=== PATIENT | male | born 1945 | race Caucasian/White ===

== ENCOUNTER → 2017-12-12 15:08 | Outpatient (CLI) | payer OTHER, SELFPAY ==
--- NOTE | 2017-12-12 | DI.RAD.S_ITS ---
This blank DEXA report has been sent in error by the PACS system. The correct and complete report will be forthcoming in 1-2 days. Thank you for your patience and understanding. Dictated by: Ceci Byrd MD, PhD on 12/12/2017 at 15:47 Approved by: Ceci Byrd MD, PhD on 12/12/2017 at 15:48
== END ==
PROVIDERS: Visit Provider Family Medicine
DX: M81.0 Age-related osteoporosis without current pathological fracture (principal)
CPT/HCPCS: 77080

== ENCOUNTER 2018-03-31 16:53 | Emergency (ER) | payer OTHER, SELFPAY ==
[2018-03-31 16:59] VITALS: BP 157/92; PULSE 76; RESP 15; TEMP 36.2; O2SAT 99; BMI 22.2
--- NOTE | 2018-03-31 17:04 | DI.RAD.S_ITS ---
PROCEDURE: XR FINGER RT MIN 2V INDICATIONS: cut rightthumb table saw TECHNIQUE: AP hand, 2 views of the right first finger(s) acquired. COMPARISON: None. FINDINGS: Bones are diffusely demineralized. A radiopaque ring projects over the right was proximal phalanx. There are mild degenerative changes of the second through fifth interphalangeal joints and moderate degenerative changes of the right first interphalangeal joint. There is cortical fracturing of the palmar/anterior aspect of the first distal phalanx diaphysis with an overlying soft tissue laceration. There is adjacent soft tissue edema. IMPRESSION: Right first distal phalanx fracture with overlying soft tissue laceration and edema. Dictated by: Escobar August M.D. on 03/31/2018 at 19:59 Approved by: Escobar August M.D. on 03/31/2018 at 20:02
--- NOTE | 2018-03-31 18:24 | ED_ITS ---
HPI - Wound/Laceration General Chief Complaint: Wound/Laceration Stated Complaint: LACERATION OF Left HAND THUMB Time Seen by Provider: 03/31/18 18:23 Source: patient Mode of arrival: ambulatory Limitations: no limitations History of Present Illness HPI narrative: The patient was using a table saw, at home. He was doing some remodeling at his home. He accidentally lacerated the volar tip of his left thumb with the saw. The tip of the thumb is in place. There is a slight numbness to the tip. Active bleeding has ceased. The incident happened at home prior to arrival. He is right-hand dominant. His last tetanus is unknown to him. Related Data Home Medications Medication Instructions Recorded Confirmed citalopram 20 mg PO QDAY #0 08/24/11 divalproex [Depakote] #0 08/24/11 omeprazole 20 mg PO QDAY #0 08/24/11 Previous Rx's Medication Instructions Recorded nadolol 20 mg PO SEE INSTRUCTIONS #60 tab 03/15/17 Allergies Allergy/AdvReac Type Severity Reaction Status Date / Time No Known Drug Allergies Allergy Verified 03/31/18 16:59 Review of Systems Constitutional Reports as per HPI Musculoskeletal Reports as per HPI, Reports numbness ( To the left thumb only) and Reports other ( Left thumb injury) Integumentary/Breasts Reports other ( no chronic issues.) Neurologic Reports numbness ( To the left thumb only) Hematologic/Lymphatic Denies easy bleeding and Denies easy bruising PFS Medical History Anxiety (Acute) Hypertension (Acute) Social History Smoking Status: Never smoker alcohol intake: never substance use type: does not use Exam Initial Vital Signs Initial Vital Signs: Vital Signs Temperature 97.1 F L 03/31/18 16:59 Pulse Rate 76 03/31/18 16:59 Respiratory Rate 15 03/31/18 16:59 Blood Pressure 157/92 H 03/31/18 16:59 Pulse Oximetry 99 03/31/18 16:59 Const General: cooperative and well developed Nutritional Appearance: well nourished Orientation: alert, awake, oriented x3 and not confused Skin General: no rashes or lesions noted Neuro General: alert, oriented x3 and no focal motor deficits Speech: speech normal Sensory Exam: other ( tingling to the tip of the left thumb, no numbness) Extrem General: other ( transverse laceration to the volar left thumb, distal to the IP joint. There is a skin flap, bone is not exposed.) Procedures Laceration Repair Laceration 1: Site: hand Side (If applicable): left (thumb) Size (cm): 2 Description: linear, flap and contaminated Depth: simple, single layer Local Anesthetic: lidocaine 2% ( digital block) Pre-repair: wound explored, irrigated extensively and deep structures intact Skin layer closed with: nylon Size (cm): 5-0 Number of sutures: 8 Technique: simple, interrupted Course Course Narrative: the wound was irrigated, and closed with interrupted nylon sutures. The wound site was then cleansed by the patient's nurse. He was placed in a tube gauze prior to discharge. Orders Ordered: ED Orders 03/31/18 17:04 XR finger RT min 2V Stat Discontinued Medications Tramadol HCl (Ultram 50mg Prepack) 1 bottle [facility] [place] [facility] Stop: 03/31/18 19:54 Vital Signs - 8 hr 03/31/18 16:59 Temperature 97.1 F L Pulse Rate 76 Respiratory Rate 15 Blood Pressure 157/92 H Pulse Oximetry 99 MDM - Wound/Laceration Imaging Data Left thumb: My impression: No bony injury seen Discharge Plan Departure Patient Disposition: Home Clinical Impression: Laceration of thumb with tendon involvement Instructions: DI for Laceration Repair Activity Restrictions/Additional Instructions: Keep the tube gauze bandage in place for 2 days. After this bandage comes off, keep the wound covered when active, you may leave the wound uncovered when at rest. Tramadol every 6 hr as needed for pain initially, then Tylenol or Advil as needed. See your doctor in 10 days for suture removal. Return here as needed. Prescriptions: No Action citalopram 10 MG tablet 20 mg PO QDAY Qty: 0 RF: 0 divalproex [Depakote] 250 MG tablet,delayed release (DR/EC) Qty: 0 RF: 0 omeprazole 20 MG capsule,delayed release(DR/EC) 20 mg PO QDAY Qty: 0 RF: 0 nadolol 20 MG tablet 20 mg PO SEE INSTRUCTIONS Qty: 60 RF: 5
[2018-03-31] MEDS: DIPHTH,PERTUSS(ACELL),TET VAC 0.5 ML SYRINGE IM (18:50)
[2018-03-31] MEDS: TRAMADOL 50 MG PREPACK 1 BOTTLE MISC (20:40)
--- NOTE | 2018-03-31 20:48 | PC.NURSE ---
provider placed 10 stitched across thumb. edges now well approximated, scant blood drainage. telfa pad and tube gauze placed over wound. Pt denies further needs
[2018-03-31 20:50] VITALS: BP 155/88; PULSE 70; RESP 14; O2SAT 99
== END 2018-03-31 20:53 | disposition home or self-care (01) ==
PROVIDERS: Emergency Provider Emergency Medicine
DX: S61.012A Laceration without foreign body of left thumb without damage to nail, initial encounter (principal); W31.2XXA Contact with powered woodworking and forming machines, initial encounter
CPT/HCPCS: 12001; 73140; 90471; 90715; 99283

== ENCOUNTER 2019-09-28 11:02 | Emergency (ER) | payer OTHER, SELFPAY ==
--- NOTE | 2019-09-28 11:06 | PC.NURSE ---
attempt to bring pt to room. Patient not in waiting room.
[2019-09-28 11:14] VITALS: BP 135/90; PULSE 79; RESP 19; TEMP 36.6; O2SAT 96; BMI 23.0
--- NOTE | 2019-09-28 11:24 | ED_ITS ---
HPI - Fall <Taurus Chris [facility] - Last Filed: 09/28/19 12:09> General Chief Complaint: Fall Stated Complaint: painful ribs due to fall 2days ago Time Seen by Provider: 09/28/19 11:09 Source: patient Mode of arrival: Ambulatory Limitations: no limitations History of Present Illness HPI Narrative: This is a 74-year-old male, nonsmoker, who presents to ED with significant other with chief complain of left lower lateral rib pain. Patient states he had mechanical, tripped and fall 2 days ago and landed on his left side while his left arm was folded below the ribs. Patient denies fever, chills, rash, nausea or vomiting. Patient denies chest pain, breathing difficulty, lightheadedness prior or after the fall. Patient has history of osteoporosis and takes medication for this once a week. He also has history of hypertension, anxiety, GERD, migraine headache. Patient has been taking acetaminophen at home, cool packs, and using hot up without much improvement. Patient states would like to know if there is a fracture whether this will heal on its own. Patient reports pain increases with twisting motion but shortly after this of size. Patient states he is not able to take NSAIDS due to gastric ulcer history. Patient declined lidocaine patch when offered during assessment. Related Data Home Medications Medication Instructions Recorded Confirmed citalopram 20 mg PO QDAY #0 08/24/11 omeprazole 20 mg PO QDAY #0 08/24/11 alendronate mg PO 09/28/19 losartan 09/28/19 rizatriptan mg 09/28/19 09/28/19 Allergies Allergy/AdvReac Type Severity Reaction Status Date / Time No Known Drug Allergies Allergy Verified 03/31/18 16:59 Review of Systems <Taurus Chris [facility] - Last Filed: 09/28/19 12:09> Review of Systems Narrative: General: Denies fever, chills, fatigue, malaise, sweats. HEENT: Denies sinus pain, ear pain, sore throat, difficulty swallowing, dizziness. Respiratory: Denies dyspnea, cough, wheezing, hemoptysis, sputum. Cardiovascular: Denies chest pain, palpitations, orthopnea, edema. Gastrointestinal: Denies nausea, vomiting, abdominal pain, diarrhea, constipation, melena. : Denies dysuria, frequency, incontinence, hematuria, urinary retention. Musculoskeletal: See HPI Skin: Denies rash, skin lesions, or other. Neurologic: Denies weakness, headache, numbness, change in speech, confusion, seizures, incoordination. Psychiatric: No concerning psychosocial issues. 12-point review of systems is negative except for those stated above. Patient History <Taurus GuillaumeNATA castro - Last Filed: 09/28/19 12:09> Medical History (Updated 09/28/19 @ 11:55 by NATA Hough) Anxiety (Acute) GERD (gastroesophageal reflux disease) (Acute) Hypertension (Acute) Migraine headache (Acute) Osteoporosis (Acute) Social History (Updated 03/31/18 @ 19:45 by Suleman Cruz MD) Smoking Status: Never smoker alcohol intake: never substance use type: does not use Smoking Status: Never smoker alcohol intake frequency: 0-2 drinks per day Substance Use Type: does not use Exam <Taurus SanchesNATA Martínez - Last Filed: 09/28/19 12:09> Narrative Exam Narrative: GEN: Alert, oriented x 3, well appearing and nourished, and in no acute distress. Head: Normal cephalic, atraumatic. No scalp or temporal tenderness, palpable mass or rash. EYES: Pupils are equal, round, and reactive to light and accommodation. Extraocular muscles are intact bilaterally. There is no subconjunctival hemorrhage, exudate and sclera non-icteric. ENT: Hearing grossly intact. Nose without bleeding, purulent discharge or deviation. Mucous membrane moist, no mucosal lesion. Throat without erythema, tonsillar hypertrophy or exudate. Uvula in midline, airway patent. Neck: Trachea in midline. No JVD, non-tender without lymphadenopathy. No masses or thyroid megaly. Supple, non-tender and no meningeal signs. CARDIAC: Normal regular rate and rhythm without murmurs, gallops, or rubs. Left lower lateral chest wall tenderness to palpate. No peripheral edema, cyanosis or pallor. Capillary refill is less than 2 seconds. RESPIRATORY: Lungs are clear to auscultate bilaterally. No cough, wheezes, rales, or rhonchi. No stridor, respiratory distress, increase work of breathing, or accessary muscle used. ABD: Abdomen soft, nontender and non-distended. No guarding or rebound tenderness to palpate. Bowel sounds are normal in all 4 quadrants. There is no palpable masses or organomegaly. EXT: Full painless ROM of all extremities with no loss of sensation, strength, effusion or edema. SKIN: Warm, dry, normal color for patient. No erythema, lesions or rash over visible areas. BACK: Nontender without deformity or crepitance. No flank tenderness. NEUROLOGICAL: Alert and oriented to place, time and person. Sensation and motor function intact bilaterally. No facial droops, dysphasia. PSYCHIATRIC: Good judgement and reason, without hallucinations, abnormal affect or abnormal behaviors during the examination. Patient is not suicidal. Initial Vital Signs Initial Vital Signs: Vital Signs Temperature 97.9 F 09/28/19 11:14 Pulse Rate 79 09/28/19 11:14 Respiratory Rate 19 09/28/19 11:14 Blood Pressure 135/90 09/28/19 11:14 Pulse Oximetry 96 09/28/19 11:14 <Steve Chappell MD - Last Filed: 09/29/19 07:44> Initial Vital Signs Initial Vital Signs: Vital Signs Temperature 97.9 F 09/28/19 11:14 Pulse Rate 79 09/28/19 11:14 Respiratory Rate 19 09/28/19 11:14 Blood Pressure 135/90 09/28/19 11:14 Pulse Oximetry 96 09/28/19 11:14 Scores <ANTA Hough - Last Filed: 09/28/19 12:09> GCS Brianne coma scale eye opening: Spontaneous Brianne coma scale verbal response: Orientated [place] coma scale motor response: Obey commands [place] coma scale total score: 15 Course <NATA Hough - Last Filed: 09/28/19 12:09> Orders Ordered: Discontinued Medications Potassium Chloride 40 meq/ (Sodium Chloride) 1,020 mls @ 250 mls/hr IV NOW ONE Stop: 09/28/19 16:10 Ketorolac Tromethamine (Toradol) 15 mg IV NOW ONE Stop: 09/28/19 12:07 Pantoprazole Sodium (Protonix) 40 mg IV NOW ONE Stop: 09/28/19 12:07 Vital Signs Vital signs: Vital Signs - 8 hr 09/28/19 11:14 Temperature 97.9 F Pulse Rate 79 Respiratory Rate 19 Blood Pressure 135/90 Pulse Oximetry 96 <Steve Chappell MD - Last Filed: 09/29/19 07:44> Orders Ordered: Discontinued Medications Potassium Chloride 40 meq/ (Sodium Chloride) 1,020 mls @ 250 mls/hr IV NOW ONE Stop: 09/28/19 16:10 Ketorolac Tromethamine (Toradol) 15 mg IV NOW ONE Stop: 09/28/19 12:07 Pantoprazole Sodium (Protonix) 40 mg IV NOW ONE Stop: 09/28/19 12:07 Vital Signs Vital signs: Vital Signs - 8 hr 09/28/19 11:14 Temperature 97.9 F Pulse Rate 79 Respiratory Rate 19 Blood Pressure 135/90 Pulse Oximetry 96 MDM - Fall <NATA Hough - Last Filed: 09/28/19 12:09> Differential Diagnosis Differential diagnosis: Likely other (rib contusion, rib fracture) Medical Records Attestation: I reviewed the patient's medical records. Imaging Data XR-Ribs: Radiologist's Impression: [address] [address] XRay Report Signed Patient: Yordy Zhu RMR#: [id number] : 6Acct:[id number] Age/Sex: 74 / MDate of Service: 09/28/19 Loc: ED Accession Number: [id number] Procedure: XR ribs LT min 3V w CXR1V Ordering Provider: Taurus Chris PROCEDURE: XR RIBS LT MIN 3V W CXR1V INDICATIONS: left lower lateral rib pain, s/p fall TECHNIQUE: 2 views of the left ribs were acquired, along with a single view chest. COMPARISON: None. FINDINGS: Surgical changes and devices: None. Bones and chest wall: No fractures or dislocations. No suspicious bony lesions. Overlying soft tissues appear unremarkable. Age-appropriate bony degenerative changes are seen. Lungs and pleura: No pleural effusions or pneumothorax. Lungs appear clear. Mediastinum: The cardiac contours are within normal limits. The aorta demo nstrates calcification and tortuosity. IMPRESSION: No displaced fractures can be seen. No pneumothorax can be seen. Dictated by: Arun Neal M.D. on 09/28/2019 at 10:36 Approved by: Arun Neal M.D. on 09/28/2019 at 10:36 MDM Narrative Medical decision making narrative: Left rib x-ray test does not show fractures or dislocation. Patient declined lidocaine patch and stays is unable to tolerate NSAIDS due to history of GI ulcer. Patient advised to continue with Tylenol as needed for discomfort and do deep breathing exercises to prevent pneumonia. Return precautions were discussed with the patient and patient verbalized understanding and in agreement with the treatment plan. Discharge Plan Departure Patient Disposition: Home Clinical Impression: Rib contusion Qualifiers: Encounter type: initial encounter Laterality: left Qualified Code(s): S20.212A - Contusion of left front wall of thorax, initial encounter Fall Qualifiers: Encounter type: initial encounter Qualified Code(s): W19.XXXA - Unspecified fall, initial encounter Discharge Date/Time: 09/28/19 12:10 Instructions: DI for Rib Contusion Activity Restrictions/Additional Instructions: You have been diagnosed with [rib contusion. Chest rib/chest x-ray does not show acute findings such as fracture or dislocation. Please continue to take Tylenol 650-1000 mg up to 3 to 4 times a day as needed for pain. 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 Please take a deep breath every hour 10 times while your awake to prevent pneumonia]. What to do: *Take your medications as directed. *Follow up with your primary care provider in 2-3 days, call for an appointment. Let them know you were seen in the ED and that we asked you to be seen in follow up. *Return to ED if you have any new, worsening, or concerning symptoms, such as [fever, chest pain, breathing difficulty, unable to tolerate fluids, productive cough, or any acute concerns]. Prescriptions: No Action citalopram 10 MG tablet 20 mg PO QDAY Qty: 0 RF: 0 omeprazole 20 MG capsule,delayed release(DR/EC) 20 mg PO QDAY Qty: 0 RF: 0 losartan 50 mg tablet RF: 0 alendronate 70 mg tablet PO RF: 0 rizatriptan 10 mg tablet,disintegrating RF: 0 Referrals: Kush Pete MD [Non-Staff] -
== END 2019-09-28 12:10 | disposition home or self-care (01) ==
PROVIDERS: Emergency Provider Nurse Practitioner Family
DX: S20.212A Contusion of left front wall of thorax, initial encounter (principal); W19.XXXA Unspecified fall, initial encounter
CPT/HCPCS: 71101; 99283

== ENCOUNTER → 2020-02-07 09:56 | Outpatient (CLI) | payer OTHER, SELFPAY ==
[2020-02-07 11:38] LABS: BUN Creatinine Ratio 23.7 (6-22); Blood Urea Nitrogen 18 mg/dL (9-20); Calcium 9.2 mg/dL (8.4-10.2); Carbon Dioxide 30 mmol/L (22-32); Chloride 104 mmol/L (98-107); Cholesterol 176 mg/dL (140-199); Estimated Glomerular Filt Rate > 60.0 mL/min (>60); Glucose 93 mg/dL (80-110); HDL Cholesterol 45 mg/dL (40-60); HEMOLYSIS < 15 (0-50); LDL Cholesterol Calculated 108 mg/dL (<100); Potassium 4.6 mmol/L (3.4-5.1); Sodium 138 mmol/L (137-145); Triglycerides 113 mg/dL (35-150)
[2020-02-07 11:52] LABS: Vitamin D 25 Hydroxy (D3) 63.3 ng/mL (30.0-100.0)
[2020-02-07 12:06] LABS: Prostate Specific Antigen Scrn 5.31 ng/mL (0.1-4.0)
== END ==
PROVIDERS: PCP Student in an Organized Health Care Education/Training Program; Referring Provider Student in an Organized Health Care Education/Training Program; Visit Provider Student in an Organized Health Care Education/Training Program
DX: M81.0 Age-related osteoporosis without current pathological fracture (principal); Z12.5 Encounter for screening for malignant neoplasm of prostate; Z13.220 Encounter for screening for lipoid disorders
CPT/HCPCS: 36415; 80048; 80061; 82306; G0103

== ENCOUNTER → 2020-02-19 13:33 | Outpatient (CLI) | payer OTHER, SELFPAY | PROVIDERS: PCP Student in an Organized Health Care Education/Training Program; Referring Provider Student in an Organized Health Care Education/Training Program; Visit Provider Student in an Organized Health Care Education/Training Program | DX: M81.0 Age-related osteoporosis without current pathological fracture (principal); Z82.62 Family history of osteoporosis | CPT/HCPCS: 77080 ==

== ENCOUNTER → 2020-04-28 11:54 | Outpatient (CLI) | payer OTHER, SELFPAY | PROVIDERS: PCP Student in an Organized Health Care Education/Training Program; Referring Provider Student in an Organized Health Care Education/Training Program; Visit Provider Student in an Organized Health Care Education/Training Program | DX: R97.20 Elevated prostate specific antigen [PSA] (principal) | CPT/HCPCS: 36415; 84153 ==

== ENCOUNTER → 2020-05-25 14:38 | Outpatient (CLI) | payer OTHER, SELFPAY ==
--- NOTE | 2020-05-25 14:39 | DI.RAD.S_ITS ---
PROCEDURE: XR THORACIC SPINE 3V INDICATIONS: Upper back pain. R/o compression fracture TECHNIQUE: 3 views of the thoracic spine were acquired. COMPARISON: None. FINDINGS: Bones: No fractures or dislocations. No suspicious bony lesions. 12 pairs of ribs are noted, and appear intact where visualized. Multilevel degenerative disc space narrowing is present. Severe degenerative changes are present within the visualized cervical spine. Soft tissues: No paravertebral stripe thickening. IMPRESSION: Multilevel degenerative disc space narrowing. No visualized acute fracture or dislocation. However, if clinical concern and/or pain persist, short interval imaging followup in 7-10 days is recommended, as occult injury cannot be definitively excluded. Dictated by: Hallie Anna M.D. on 05/25/2020 at 16:14 Approved by: Hallie Anna M.D. on 05/25/2020 at 16:15
== END ==
PROVIDERS: PCP Student in an Organized Health Care Education/Training Program; Referring Provider Student in an Organized Health Care Education/Training Program; Visit Provider Student in an Organized Health Care Education/Training Program
DX: M54.6 Pain in thoracic spine (principal); M48.04 Spinal stenosis, thoracic region; M47.812 Spondylosis without myelopathy or radiculopathy, cervical region
CPT/HCPCS: 72072

== ENCOUNTER 2020-10-31 13:07 | Emergency (ER) | payer OTHER, SELFPAY ==
[2020-10-31 13:14] VITALS: BP 129/61; PULSE 112; RESP 18; TEMP 37.3; O2SAT 97; BMI 21.1
[2020-10-31] MEDS: LIDOCAINE 2% (GLYDO) 6 ML GEL TOP (13:37)
--- NOTE | 2020-10-31 13:39 | ED_ITS ---
HPI - General Adult General Chief complaint: Urogenital-Male Stated complaint: UNABLE TO URINATE/PAIN POST OP Time Seen by Provider: 10/31/20 13:20 History of Present Illness HPI narrative: Patient is a 75-year-old male who a couple days ago had prostate biopsies done by urology. He was on antibiotics prior to the procedure but not afterwards. Over the past 24 hours he states he has had urinary urgency, frequency, decreased urine output, feeling like he is retaining urine. Also was having some chills and a clammy feeling. He went to walk-in clinic where he was told that he potentially had infection. Prostate exam was done and he did have a tender prostate. He was sent here to the emergency department for further evaluation Related Data Home Medications Medication Instructions Recorded Confirmed rizatriptan 10 mg disintegrating mg 09/28/19 10/28/20 tablet cholecalciferol (vitamin D3) 100 100 mcg PO DAILY 07/06/20 10/28/20 mcg (4,000 unit) capsule magnesium 250 mg tablet 375 mg PO DAILY tab 07/06/20 10/28/20 mecobalamin (vitamin B12) 1,000 1,000 mcg SUBLINGUAL DAILY 07/06/20 10/28/20 mcg disintegrating tablet,sublingual Previous Rx's Medication Instructions Recorded citalopram 10 mg tablet 20 mg PO QDAY #90 tab 04/27/20 alendronate 70 mg tablet 70 mg PO QWEEK #12 tab 05/20/20 losartan 50 mg tablet 50 mg PO DAILY #90 tab 09/24/20 levofloxacin 500 mg tablet 500 mg PO DAILY 13 Days #13 tab 10/31/20 Allergies Allergy/AdvReac Type Severity Reaction Status Date / Time No Known Drug Allergies Allergy Verified 10/28/20 15:41 Review of Systems Constitutional Constitutional: Reports chills and Denies fever(s) Cardiovascular Cardiovascular: Reports system reviewed and no additional complaints, except as documented Respiratory Respiratory: Reports system reviewed and no additional complaints, except as documented Gastrointestinal Gastrointestinal: Reports abdominal pain Genitourinary Genitourinary: Reports as per HPI Musculoskeletal Musculoskeletal: Reports system reviewed and no additional complaints, except as documented Integumentary/Breasts Skin/Breast: Reports system reviewed and no additional complaints, except as documented Neurologic Neurologic: Reports system reviewed and no additional complaints, except as documented Hematologic/Lymphatic On Anticoagulants: No Allergic/Immunologic Allergic/Immunologic: Reports system reviewed and no additional complaints, except as documented Patient History Medical History Anxiety BPH w urinary obs/LUTS GERD (gastroesophageal reflux disease) Hypertension Melanoma Migraine headache Osteoporosis Surgical History History of circumcision History of hernia repair History of prostate biopsy History of vasectomy Family History Mother Cancer Hyperlipidemia Hypertension Migraines Father Cancer Social History marital status: number of children: 2 occupational status: previously employed Smoking Status: Never smoker alcohol intake: never substance use type: does not use caffeine: Yes Smoking Status: Never smoker alcohol intake frequency: 0-2 drinks per day Substance Use Type: does not use Exam Initial Vital Signs Initial Vital Signs: Vital Signs Temperature 99.2 F 10/31/20 13:14 Pulse Rate 112 H 10/31/20 13:14 Respiratory Rate 18 10/31/20 13:14 Blood Pressure 129/61 10/31/20 13:14 Pulse Oximetry 97 10/31/20 13:14 Const General: cooperative HENMT Head: normal to inspection and normocephalic Eyes General: appearance normal, both eyes and all related structures Resp Effort & Inspection: normal respiratory effort Auscultation: clear to auscultation bilaterally Cardio Rate: regular rate Rhythm: regular rhythm GI Inspection: normal to inspection External: normal external exam Skin General: no rashes or lesions noted Neuro General: patient alert, patient awake, patient oriented x3 and moves all extremities Extrem General: normal to inspection and capillary refill normal Psych Appearance: grossly normal and well kempt Course Orders Ordered: ED Orders 10/31/20 13:19 Urinalysis and Microscopic Stat Urine Culture Stat Urine Culture Stat 10/31/20 13:50 Complete Blood Count AUTO DIFF Stat Comprehensive Metabolic Panel Stat Lactate (Lactic Acid) Stat Lipase Stat Discontinued Medications Levofloxacin (Levofloxacin 250 Mg Tablet) 500 mg PO NOW ONE Stop: 10/31/20 14:34 Last Admin: 10/31/20 14:59 Dose: 500 mg Documented by: RSTONE Lidocaine HCl (Lidocaine 2% (Glydo) 6 Ml Gel) 6 ml TOP NOW ONE Stop: 10/31/20 13:28 Last Admin: 10/31/20 13:37 Dose: 6 ml Documented by: TOMMY Vital Signs Vital signs: Vital Signs - 8 hr 10/31/20 13:14 10/31/20 13:49 Temperature 99.2 F Pulse Rate 112 H 96 H Respiratory Rate 18 14 Blood Pressure 129/61 117/58 L Pulse Oximetry 97 98 Medical Decision Making Lab Data Lab results reviewed: Yes I reviewed the patient's lab results. Result diagrams: 10/31/20 13:50 10/31/20 13:50 Labs: Lab Results 10/31/20 10/31/20 10/31/20 Range/Units 13:19 13:50 13:50 WBC 10.0 (4.5-11.0) X10^3/uL RBC 3.84 L (4.5-5.9) X10^6/uL Hgb 12.4 L (13.5-17.5) g/dL Hct 35.7 L (41-53) % MCV 93.0 (80-100) fL MCH 32.2 (26-34) PG MCHC 34.6 (30-36) % RDW 12.8 (11.6-14.8) % Plt Count 153 (150-400) X10^3/uL Neut % (Auto) 80.7 H (50-75) % Lymph % (Auto) 7.6 L (25-40) % [place] % (Auto) 11.2 (3-14) % Eos % (Auto) 0.2 L (2-4) % Baso % (Auto) 0.3 (0-2) % Neut # (Auto) 8100 H (8742-6888) /uL Lymph # (Auto) 800 L (7283-3077) /uL [place] # (Auto) 1100 H (0-900) /uL Eos # (Auto) 0 (0-450) /uL Baso # (Auto) 0 (0-100) /uL Sodium 134 L (137-145) mmol/L Potassium 3.7 (3.4-5.1) mmol/L Chloride 104 (98-107) mmol/L Carbon Dioxide 23 (22-32) mmol/L BUN 13 (9-20) mg/dL Creatinine 0.78 (0.66-1.25) mg/dL Estimated GFR > 60.0 (>60) mL/min BUN/Creatinine Ratio 16.7 (6-22) Glucose 117 H (80-110) mg/dL Lactate (0.7-2.1) mmol/L Calcium 9.1 (8.4-10.2) mg/dL Total Bilirubin 1.1 (0.2-1.3) mg/dL AST 22 (17-59) IU/L ALT 16 (<50) IU/L Alkaline Phosphatase 53 (38-126) U/L Total Protein 6.9 (6.3-8.2) g/dL Albumin 4.0 (3.5-5.0) g/dL Globulin 2.9 (1.7-4.1) g/dL Albumin/Globulin Ratio 1.4 (1.0-2.8) Lipase 62 (23-300) U/L Urine Color Yellow Urine Appearance Clear Urine pH 5.0 (4.5-8.0) Ur Specific [place] 1.020 (1.000-1.035) Urine Protein Trace H (Negative) Urine Glucose (UA) Negative (Negative) g/dL Urine Ketones Trace H (NEGATIVE) Urine Occult Blood 3+ H (Negative) Urine Nitrate Positive (Negative) Urine Bilirubin Negative (NEGATIVE) Urine Urobilinogen 0.2 (0.2) E.U./dL Ur Leukocyte Esterase 1+ H (NEGATIVE) Urine RBC 1-5/hpf (0-5/HPF) Urine WBC >100/hpf H (0-5/HPF) Ur Squamous Epith Cells 0-1 /hpf (0-5/HPF) Amorphous Sediment 2+ Urine Bacteria Many (>30) H (None) Ur Culture Indicated? Specimen cultured 10/31/20 Range/Units 13:50 WBC (4.5-11.0) X10^3/uL RBC (4.5-5.9) X10^6/uL Hgb (13.5-17.5) g/dL Hct (41-53) % MCV (80-100) fL MCH (26-34) PG MCHC (30-36) % RDW (11.6-14.8) % Plt Count (150-400) X10^3/uL Neut % (Auto) (50-75) % Lymph % (Auto) (25-40) % [place] % (Auto) (3-14) % Eos % (Auto) (2-4) % Baso % (Auto) (0-2) % Neut # (Auto) (1809-0970) /uL Lymph # (Auto) (2307-2189) /uL [place] # (Auto) (0-900) /uL Eos # (Auto) (0-450) /uL Baso # (Auto) (0-100) /uL Sodium (137-145) mmol/L Potassium (3.4-5.1) mmol/L Chloride (98-107) mmol/L Carbon Dioxide (22-32) mmol/L BUN (9-20) mg/dL Creatinine (0.66-1.25) mg/dL Estimated GFR (>60) mL/min BUN/Creatinine Ratio (6-22) Glucose (80-110) mg/dL Lactate 1.0 (0.7-2.1) mmol/L Calcium (8.4-10.2) mg/dL Total Bilirubin (0.2-1.3) mg/dL AST (17-59) IU/L ALT (<50) IU/L Alkaline Phosphatase (38-126) U/L Total Protein (6.3-8.2) g/dL Albumin (3.5-5.0) g/dL Globulin (1.7-4.1) g/dL Albumin/Globulin Ratio (1.0-2.8) Lipase (23-300) U/L Urine Color Urine Appearance Urine pH (4.5-8.0) Ur Specific [place] (1.000-1.035) Urine Protein (Negative) Urine Glucose (UA) (Negative) g/dL Urine Ketones (NEGATIVE) Urine Occult Blood (Negative) Urine Nitrate (Negative) Urine Bilirubin (NEGATIVE) Urine Urobilinogen (0.2) E.U./dL Ur Leukocyte Esterase (NEGATIVE) Urine RBC (0-5/HPF) Urine WBC (0-5/HPF) Ur Squamous Epith Cells (0-5/HPF) Amorphous Sediment Urine Bacteria (None) Ur Culture Indicated? MDM Narrative Medical decision making narrative: Patient is nontoxic appearing. Does have nitrite positive urine. He is not retaining urine. Rest of his labs are unremarkable. Low suspicion for sepsis. There is some concern about prostatitis given his reported prostate exam from the nurse practitioner at the outpatient clinic. Plan will be is to obtain a urine culture and start the patient on Levaquin. Will have him follow-up with his primary doctor and also his urologist. He was informed of the culture pending at the time of discharge. He expressed understanding and agreement. Discharge Plan Departure Patient Disposition: Home Clinical Impression: Urinary tract infection Instructions: DI for Urinary Tract Infection (UTI) Activity Restrictions/Additional Instructions: We will start you on antibiotics. There was a culture pending at the time of discharge we will contact you if we need to change any antibiotics. Please keep all of your scheduled medical appointments and contact your primary doctor for follow-up. Return to the emergency department for any new or worsening symptoms Prescriptions: New levofloxacin 500 mg tablet 500 mg PO DAILY 13 Days Qty: 13 RF: 0 No Action citalopram 10 mg tablet 20 mg PO QDAY Qty: 90 RF: 3 alendronate 70 mg tablet 70 mg PO QWEEK Qty: 12 RF: 3 mecobalamin (vitamin B12) 1,000 mcg tablet,disintegrating 1,000 mcg sublingual DAILY RF: 0 cholecalciferol (vitamin D3) 100 mcg (4,000 unit) capsule 100 mcg PO DAILY RF: 0 magnesium 250 mg tablet 375 mg PO DAILY RF: 0 losartan 50 mg tablet 50 mg PO DAILY Qty: 90 RF: 1 rizatriptan 10 mg tablet,disintegrating RF: 0 Referrals: Sander Greene MD [Primary Care Provider] -
[2020-10-31 13:49] VITALS: BP 117/58; PULSE 96; RESP 14; O2SAT 98
[2020-10-31 13:49] LABS: Appearance Urine UA CLEAR; Bilirubin Urine UA NEGATIVE (NEGATIVE); Color Urine UA YELLOW; Glucose Urine UA NEGATIVE (Negative); Ketones Urine UA TRACE (NEGATIVE); Leukocyte Esterase Urine UA 1+ (NEGATIVE); Nitrite Urine UA POSITIVE (Negative); Occult Blood Urine UA 3+ (Negative); Protein Urine UA TRACE (Negative); Urobilinogen Urine UA 0.2 E.U./dL (0.2)
[2020-10-31 13:56] LABS: Add Manual Diff / Slide Review NO; Basophils Absolute Auto 0 /uL (0-100); Basophils Percent Auto 0.3 % (0-2); Eosinophils Absolute Auto 0 /uL (0-450); Eosinophils Percent Auto 0.2 % (2-4); Hematocrit 35.7 % (41-53); Hemoglobin 12.4 g/dL (13.5-17.5); Lymphocytes Absolute Auto 800 /uL (1100-4500); Lymphocytes Percent Auto 7.6 % (25-40); Mean Corpuscular HGB Conc 34.6 % (30-36); Mean Corpuscular Hemoglobin 32.2 PG (26-34); Monocytes Absolute Auto 1100 /uL (0-900); Monocytes Percent Auto 11.2 % (3-14); Neutrophils Absolute Auto 8100 /uL (1500-7000); Neutrophils Percent Auto 80.7 % (50-75); Platelet Count 153 X10^3/uL (150-400); Red Blood Cell Count 3.84 X10^6/uL (4.5-5.9); Red Cell Distribution Width 12.8 % (11.6-14.8)
[2020-10-31 14:00] VITALS: BP 103/56; PULSE 95; O2SAT 97
[2020-10-31 14:00] LABS: RBC Urine 1-5/HPF (0-5/HPF)
[2020-10-31 14:01] LABS: Amorphous Sediment Urine 2+; Bacteria Urine Many (>30); Culture Indicated Urine Specimen Cultured; Squamous Epithelial Cell Urine 0-1 /HPF (0-5/HPF); WBC Urine >100/HPF (0-5/HPF)
[2020-10-31 14:07] LABS: Alanine Aminotransferase 16 IU/L (<50); Albumin Globulin Ratio 1.4 (1.0-2.8); Alkaline Phosphatase 53 U/L (38-126); Aspartate Aminotransferase 22 IU/L (17-59); BUN Creatinine Ratio 16.7 (6-22); Bilirubin Total 1.1 mg/dL (0.2-1.3); Blood Urea Nitrogen 13 mg/dL (9-20); Calcium 9.1 mg/dL (8.4-10.2); Carbon Dioxide 23 mmol/L (22-32); Chloride 104 mmol/L (98-107); Estimated Glomerular Filt Rate > 60.0 mL/min (>60); Globulin 2.9 g/dL (1.7-4.1); Glucose 117 mg/dL (80-110); HEMOLYSIS < 15 (0-50); Lipase 62 U/L (23-300); Potassium 3.7 mmol/L (3.4-5.1); Sodium 134 mmol/L (137-145); Total Protein 6.9 g/dL (6.3-8.2)
[2020-10-31 14:30] VITALS: BP 113/59; PULSE 90; O2SAT 98
[2020-10-31] MEDS: levoFLOXacin 250 MG TABLET 500 MG PO (14:59)
[2020-10-31 15:00] VITALS: BP 124/61; PULSE 88; O2SAT 98
== END 2020-10-31 15:31 | disposition home or self-care (01) ==
PROVIDERS: Emergency Provider Emergency Medicine; PCP Student in an Organized Health Care Education/Training Program
DX: N39.0 Urinary tract infection, site not specified (principal)
CPT/HCPCS: 36415; 51702; 51798; 80053; 81001; 83605; 83690; 85025; 87077; 87086; 87186; 99284

== ENCOUNTER 2020-11-04 08:00 | Emergency (ER) | payer OTHER, SELFPAY ==
[2020-11-04 08:30] VITALS: BP 144/72; PULSE 80; RESP 17; TEMP 36.9; O2SAT 99; BMI 21.1
[2020-11-04 09:01] LABS: Bacteria Urine None Seen
[2020-11-04 09:07] LABS: Culture Indicated Urine Cult Not Indicated; RBC Urine 0-1/HPF (0-5/HPF); WBC Urine 0-1/HPF (0-5/HPF)
--- NOTE | 2020-11-04 09:32 | ED.MALEGU ---
HPI - Male Genitourinary General Chief complaint: Urogenital-Male Stated complaint: prostate bx x7 days/freq urine severe pain Time Seen by Provider: 11/04/20 08:14 Source: patient Mode of arrival: Ambulatory Limitations: no limitations History of Present Illness HPI Narrative: Patient is a 75-year-old male who presents with painful frequent urination. He was seen evaluated here on 10/31/2020 diagnosed with UTI. He recently had had prostate biopsies. He was started on Levaquin however culture grew resistant to Levaquin antibiotic was changed yesterday to Bactrim. He took 2 doses. He overall still feels weak and tired. He denies sweats or chills. He has no flank pain abdominal pain nausea or vomiting. He just generally feels weak and has extreme pain while urinating. Related Data Home Medications Medication Instructions Recorded Confirmed rizatriptan 10 mg disintegrating mg 09/28/19 10/28/20 tablet cholecalciferol (vitamin D3) 100 100 mcg PO DAILY 07/06/20 10/28/20 mcg (4,000 unit) capsule magnesium 250 mg tablet 375 mg PO DAILY tab 07/06/20 10/28/20 mecobalamin (vitamin B12) 1,000 1,000 mcg SUBLINGUAL DAILY 07/06/20 10/28/20 mcg disintegrating tablet,sublingual ciprofloxacin HCl 500 mg tablet mg 11/04/20 sulfamethoxazole 800 1 tab PO BID 11/04/20 11/04/20 mg-trimethoprim 160 mg tablet Previous Rx's Medication Instructions Recorded citalopram 10 mg tablet 20 mg PO QDAY #90 tab 04/27/20 alendronate 70 mg tablet 70 mg PO QWEEK #12 tab 05/20/20 losartan 50 mg tablet 50 mg PO DAILY #90 tab 09/24/20 sulfamethoxazole 800 1 tab PO BID 10 Days #20 tab 11/03/20 mg-trimethoprim 160 mg tablet tamsulosin 0.4 mg capsule 0.4 mg PO BEDTIME #90 cap 11/03/20 phenazopyridine 200 mg tablet 200 mg PO TID PRN #9 tab 11/04/20 (Pyridium) Allergies Allergy/AdvReac Type Severity Reaction Status Date / Time No Known Drug Allergies Allergy Verified 11/04/20 11:08 Review of Systems Review of Systems Narrative: GENERAL: Denies chills, fatigue, malaise, fever, sweats, travel HEENT: Denies sinus pain, ear pain, sore throat, difficulty swallowing, neck pain RESPIRATORY: Denies dyspnea, cough, wheezing, hemoptysis, sputum. CARDIOVASCULAR: Denies chest pain, palpitations, orthopnea, edema GASTROINTESTINAL: Denies nausea, vomiting, abdominal pain, diarrhea, constipation, melena. : See HPI MUSCULOSKELETAL: Denies weakness, joint pain, or bony pain SKIN: No rash, no erythema, no pruritus NEUROLOGIC: Denies weakness, dizziness, headache, numbness, change in speech, confusion PSYCHIATRIC: No concerning psychosocial issues. 12 point review of systems is negative except for those stated above and HPI Patient History Medical History Anxiety BPH w urinary obs/LUTS GERD (gastroesophageal reflux disease) Hypertension Melanoma Migraine headache Osteoporosis Surgical History History of circumcision History of hernia repair History of prostate biopsy History of vasectomy Family History Mother Cancer Hyperlipidemia Hypertension Migraines Father Cancer Social History marital status: number of children: 2 occupational status: previously employed Smoking Status: Never smoker alcohol intake: never substance use type: does not use caffeine: Yes Smoking Status: Never smoker alcohol intake frequency: 0-2 drinks per day Substance Use Type: does not use Exam Initial Vital Signs Initial Vital Signs: Vital Signs Temperature 98.5 F 11/04/20 08:30 Pulse Rate 80 11/04/20 08:30 Respiratory Rate 17 11/04/20 08:30 Blood Pressure 144/72 H 11/04/20 08:30 Pulse Oximetry 99 11/04/20 08:30 GENERAL: Alert 75-year-old male and in no acute distress. HEENT: Head atraumatic,EOMI, pupils reactive, face symmetric, moist mucous membranes CARDIOVASCULAR: Regular rate and rhythm without murmurs, rubs or gallops. RESPIRATORY: Breath sounds equal bilaterally, no wheezes rales or rhonchi. ABDOMEN: Soft, nontender. Normoactive bowel sounds all 4 quadrants. No guarding or rebound. : No CVA tenderness EXTREMITIES: Normal range of motion, no clubbing or edema. Neurovascularly intact NEUROLOGICAL: Alert and oriented x4.Normal gait and speech. SKIN: Warm, dry, no laceration, no petechiae, no rashes or lesions. Course Orders Ordered: Discontinued Medications Sodium Chloride (Normal Saline 0.9%) 1,000 mls @ 1,000 mls/hr IV BOLUS ONE Stop: 11/04/20 10:37 Last Infusion: 11/04/20 11:46 Dose: 0 mls/hr Documented by: Admin: 11/04/20 10:21 Dose: 1,000 mls/hr Documented by: MELQUIADES Piperacillin Sod/Tazobactam (Sod 4.5 gm/ Sodium Chloride) 100 mls @ 200 mls/hr IV NOW ONE Stop: 11/04/20 09:39 Last Infusion: 11/04/20 11:06 Dose: 0 mls/hr Documented by: Admin: 11/04/20 10:22 Dose: 200 mls/hr Documented by: MELQUIADES Ketorolac Tromethamine (Ketorolac 30 Mg/Ml Vial) 30 mg IV NOW ONE Stop: 11/04/20 11:21 Last Admin: 11/04/20 11:38 Dose: Not Given Documented by: RAYRAY Vital Signs Vital signs: Vital Signs - 8 hr 11/04/20 08:30 Temperature 98.5 F Pulse Rate 80 Respiratory Rate 17 Blood Pressure 144/72 H Pulse Oximetry 99 MDM - Male Genitourinary Lab Data Result diagrams: 11/04/20 10:02 11/04/20 10:02 Labs: Lab Results 11/04/20 11/04/20 11/04/20 Range/Units 08:21 10:02 10:02 WBC 9.7 (4.5-11.0) X10^3/uL RBC 4.04 L (4.5-5.9) X10^6/uL Hgb 12.9 L (13.5-17.5) g/dL Hct 37.8 L (41-53) % MCV 93.5 (80-100) fL MCH 32.0 (26-34) PG MCHC 34.2 (30-36) % RDW 12.5 (11.6-14.8) % Plt Count 185 (150-400) X10^3/uL Neut % (Auto) 74.4 (50-75) % Lymph % (Auto) 10.4 L (25-40) % [place] % (Auto) 14.3 H (3-14) % Eos % (Auto) 0.3 L (2-4) % Baso % (Auto) 0.6 (0-2) % Neut # (Auto) 7200 H (7273-8407) /uL Lymph # (Auto) 1000 L (8717-8344) /uL [place] # (Auto) 1400 H (0-900) /uL Eos # (Auto) 0 (0-450) /uL Baso # (Auto) 100 (0-100) /uL Sodium 134 L (137-145) mmol/L Potassium 4.2 (3.4-5.1) mmol/L Chloride 104 (98-107) mmol/L Carbon Dioxide 23 (22-32) mmol/L BUN 12 (9-20) mg/dL Creatinine 0.86 (0.66-1.25) mg/dL Estimated GFR > 60.0 (>60) mL/min BUN/Creatinine Ratio 14.0 (6-22) Glucose 105 (80-110) mg/dL Lactate (0.7-2.1) mmol/L Calcium 9.2 (8.4-10.2) mg/dL Total Bilirubin 0.5 (0.2-1.3) mg/dL AST 28 (17-59) IU/L ALT 17 (<50) IU/L Alkaline Phosphatase 60 (38-126) U/L Total Protein 7.3 (6.3-8.2) g/dL Albumin 4.1 (3.5-5.0) g/dL Globulin 3.2 (1.7-4.1) g/dL Albumin/Globulin Ratio 1.3 (1.0-2.8) Procalcitonin (<0.5) ng/mL Urine RBC 0-1/hpf (0-5/HPF) Urine WBC 0-1/hpf (0-5/HPF) Urine Bacteria None seen (None) Ur Culture Indicated? Cult not indicated 11/04/20 11/04/20 Range/Units 10:02 10:02 WBC (4.5-11.0) X10^3/uL RBC (4.5-5.9) X10^6/uL Hgb (13.5-17.5) g/dL Hct (41-53) % MCV (80-100) fL MCH (26-34) PG MCHC (30-36) % RDW (11.6-14.8) % Plt Count (150-400) X10^3/uL Neut % (Auto) (50-75) % Lymph % (Auto) (25-40) % [place] % (Auto) (3-14) % Eos % (Auto) (2-4) % Baso % (Auto) (0-2) % Neut # (Auto) (4610-9142) /uL Lymph # (Auto) (4965-1286) /uL [place] # (Auto) (0-900) /uL Eos # (Auto) (0-450) /uL Baso # (Auto) (0-100) /uL Sodium (137-145) mmol/L Potassium (3.4-5.1) mmol/L Chloride (98-107) mmol/L Carbon Dioxide (22-32) mmol/L BUN (9-20) mg/dL Creatinine (0.66-1.25) mg/dL Estimated GFR (>60) mL/min BUN/Creatinine Ratio (6-22) Glucose (80-110) mg/dL Lactate 1.0 (0.7-2.1) mmol/L Calcium (8.4-10.2) mg/dL Total Bilirubin (0.2-1.3) mg/dL AST (17-59) IU/L ALT (<50) IU/L Alkaline Phosphatase (38-126) U/L Total Protein (6.3-8.2) g/dL Albumin (3.5-5.0) g/dL Globulin (1.7-4.1) g/dL Albumin/Globulin Ratio (1.0-2.8) Procalcitonin 0.37 (<0.5) ng/mL Urine RBC (0-5/HPF) Urine WBC (0-5/HPF) Urine Bacteria (None) Ur Culture Indicated? [facility] Narrative Medical decision making narrative: The patient is afebrile without leukocytosis. He has been to the bathroom numerous times in the emergency department complaining of his painful urination. At this time he does not appear septic we discussed hospitalization for failed outpatient treatment however he really has not had long enough on an appropriate antibiotic. At this time he is opting to go home which I think is appropriate he overall appears well and blood work is reassuring. I discussed with him adding Pyridium to his regimen to help with the dysuria. Discharge Plan Departure Patient Disposition: Home Clinical Impression: Acute UTI Instructions: DI for Urinary Tract Infection (UTI) Activity Restrictions/Additional Instructions: *You have been diagnosed with UTI *What to do: At this time blood work is overall reassuring but he still have an obvious infection. Continue to take new antibiotics as prescribed and stay hydrated *Continue to take medications as directed Pyridium 200 mg 3 times a day for 3 days only *Follow up with your primary care provider in 2-3 days *Return to ER if you should have increasing confusion weakness inability to tolerate fluids or any new, worsening or concerning symptoms Prescriptions: New phenazopyridine [Pyridium] 200 mg tablet 200 mg PO TID PRN (Reason: pain) Qty: 9 RF: 0 No Action citalopram 10 mg tablet 20 mg PO QDAY Qty: 90 RF: 3 alendronate 70 mg tablet 70 mg PO QWEEK Qty: 12 RF: 3 mecobalamin (vitamin B12) 1,000 mcg tablet,disintegrating 1,000 mcg sublingual DAILY RF: 0 cholecalciferol (vitamin D3) 100 mcg (4,000 unit) capsule 100 mcg PO DAILY RF: 0 magnesium 250 mg tablet 375 mg PO DAILY RF: 0 losartan 50 mg tablet 50 mg PO DAILY Qty: 90 RF: 1 sulfamethoxazole-trimethoprim 800-160 mg tablet 1 tab PO BID 10 Days Qty: 20 RF: 0 tamsulosin 0.4 mg capsule 0.4 mg PO BEDTIME Qty: 90 RF: 3 rizatriptan 10 mg tablet,disintegrating RF: 0 ciprofloxacin HCl 500 mg tablet RF: 0 sulfamethoxazole-trimethoprim 800-160 mg tablet 1 tab PO BID RF: 0 Referrals: Sander Greene MD [Primary Care Provider] -
[2020-11-04 10:11] LABS: Add Manual Diff / Slide Review NO; Basophils Absolute Auto 100 /uL (0-100); Basophils Percent Auto 0.6 % (0-2); Eosinophils Absolute Auto 0 /uL (0-450); Eosinophils Percent Auto 0.3 % (2-4); Hematocrit 37.8 % (41-53); Hemoglobin 12.9 g/dL (13.5-17.5); Lymphocytes Absolute Auto 1000 /uL (1100-4500); Lymphocytes Percent Auto 10.4 % (25-40); Mean Corpuscular HGB Conc 34.2 % (30-36); Mean Corpuscular Volume 93.5 fL (80-100); Monocytes Absolute Auto 1400 /uL (0-900); Monocytes Percent Auto 14.3 % (3-14); Neutrophils Absolute Auto 7200 /uL (1500-7000); Neutrophils Percent Auto 74.4 % (50-75); Platelet Count 185 X10^3/uL (150-400); Red Blood Cell Count 4.04 X10^6/uL (4.5-5.9); Red Cell Distribution Width 12.5 % (11.6-14.8); White Blood Cell Count 9.7 X10^3/uL (4.5-11.0)
[2020-11-04 10:21] LABS: Alanine Aminotransferase 17 IU/L (<50); Albumin 4.1 g/dL (3.5-5.0); Albumin Globulin Ratio 1.3 (1.0-2.8); Alkaline Phosphatase 60 U/L (38-126); Aspartate Aminotransferase 28 IU/L (17-59); Bilirubin Total 0.5 mg/dL (0.2-1.3); Blood Urea Nitrogen 12 mg/dL (9-20); Calcium 9.2 mg/dL (8.4-10.2); Carbon Dioxide 23 mmol/L (22-32); Chloride 104 mmol/L (98-107); Estimated Glomerular Filt Rate > 60.0 mL/min (>60); Globulin 3.2 g/dL (1.7-4.1); Glucose 105 mg/dL (80-110); HEMOLYSIS 22 (0-50); Potassium 4.2 mmol/L (3.4-5.1); Sodium 134 mmol/L (137-145); Total Protein 7.3 g/dL (6.3-8.2)
[2020-11-04] MEDS: SODIUM CHLORIDE 0.9% 1,000 ML 1000 ML IV (10:21)
[2020-11-04] MEDS: PIPERACILLIN/TAZO 4.5 GM in SODIUM CHLORIDE 0.9% 100 ML 200 ML IV (10:22)
[2020-11-04 10:28] VITALS: PULSE 75; O2SAT 98
[2020-11-04 10:29] VITALS: BP 124/77; PULSE 76; O2SAT 99
[2020-11-04 10:30] VITALS: PULSE 71; O2SAT 99
[2020-11-04 10:37] LABS: Procalcitonin 0.37 ng/mL (<0.5)
[2020-11-04 12:00] VITALS: BP 145/76; PULSE 71; RESP 16; O2SAT 99
== END 2020-11-04 12:00 | disposition home or self-care (01) ==
PROVIDERS: Emergency Provider Emergency Medicine; PCP Student in an Organized Health Care Education/Training Program
DX: N39.0 Urinary tract infection, site not specified (principal)
CPT/HCPCS: 36415; 80053; 81015; 83605; 84145; 85025; 87040; 96365; 99284; J2543

== ENCOUNTER 2020-11-06 03:55 | Emergency (ER) | payer OTHER, SELFPAY ==
[2020-11-06 04:05] VITALS: BP 155/73; PULSE 72; RESP 21; TEMP 36.6; O2SAT 98
[2020-11-06 04:25] LABS: Appearance Urine UA CLEAR; Bilirubin Urine UA NEGATIVE (NEGATIVE); Glucose Urine UA TRACE g/dL (Negative); Ketones Urine UA NEGATIVE (NEGATIVE); Leukocyte Esterase Urine UA NEGATIVE (NEGATIVE); Nitrite Urine UA POSITIVE (Negative); Occult Blood Urine UA NEGATIVE (Negative); Protein Urine UA NEGATIVE (Negative); Specific Gravity Urine UA <=1.005 (1.000-1.035); pH Urine UA 6.5 (4.5-8.0)
[2020-11-06 04:27] LABS: Color Urine UA ORANGE
[2020-11-06 04:30] LABS: Bacteria Urine Few (2-10); Squamous Epithelial Cell Urine 0-1 /HPF (0-5/HPF); WBC Urine 0-1/HPF (0-5/HPF)
[2020-11-06 04:31] LABS: RBC Urine 0-1/HPF (0-5/HPF)
--- NOTE | 2020-11-06 04:38 | ED_ITS ---
HPI - General Adult General Chief complaint: Urogenital-Male Stated complaint: difficulty urinating/painful Time Seen by Provider: 11/06/20 04:01 Mode of arrival: Ambulatory History of Present Illness HPI narrative: Patient is a 75-year-old male who approximately 1 week ago underwent a prostate biopsy. He was seen here in the emergency department by myself a couple days later and was started on Levaquin for treatment of a nitrite positive urine. The assumption was that this would cover urinary tract infection and also prostatitis. Urine culture did show E coli which was not sensitive to Levaquin. He was seen in the emergency department couple days later for continued symptoms. He was started on Bactrim given the sensitivity report. He was also given peridium. He now has had approximately 3 days of this antibiotic and reports that he is still having quite a bit of dysuria and also urinary frequency and feeling like he is not emptying his bladder. He between the times who going to the bathroom he is not having any symptoms. Related Data Home Medications Medication Instructions Recorded Confirmed rizatriptan 10 mg disintegrating mg 09/28/19 10/28/20 tablet cholecalciferol (vitamin D3) 100 100 mcg PO DAILY 07/06/20 10/28/20 mcg (4,000 unit) capsule magnesium 250 mg tablet 375 mg PO DAILY tab 07/06/20 10/28/20 mecobalamin (vitamin B12) 1,000 1,000 mcg SUBLINGUAL DAILY 07/06/20 10/28/20 mcg disintegrating tablet,sublingual ciprofloxacin HCl 500 mg tablet mg 11/04/20 sulfamethoxazole 800 1 tab PO BID 11/04/20 11/04/20 mg-trimethoprim 160 mg tablet Previous Rx's Medication Instructions Recorded citalopram 10 mg tablet 20 mg PO QDAY #90 tab 04/27/20 alendronate 70 mg tablet 70 mg PO QWEEK #12 tab 05/20/20 losartan 50 mg tablet 50 mg PO DAILY #90 tab 09/24/20 sulfamethoxazole 800 1 tab PO BID 10 Days #20 tab 11/03/20 mg-trimethoprim 160 mg tablet tamsulosin 0.4 mg capsule 0.4 mg PO BEDTIME #90 cap 11/03/20 phenazopyridine 200 mg tablet 200 mg PO TID PRN #9 tab 11/04/20 (Pyridium) Allergies Allergy/AdvReac Type Severity Reaction Status Date / Time No Known Drug Allergies Allergy Verified 11/04/20 11:08 Review of Systems Constitutional Constitutional: Denies fever(s) Genitourinary Genitourinary: Reports as per HPI Musculoskeletal Musculoskeletal: Denies back pain Hematologic/Lymphatic On Anticoagulants: No Patient History Medical History Anxiety BPH w urinary obs/LUTS GERD (gastroesophageal reflux disease) Hypertension Melanoma Migraine headache Osteoporosis Surgical History History of circumcision History of hernia repair History of prostate biopsy History of vasectomy Family History Mother Cancer Hyperlipidemia Hypertension Migraines Father Cancer Social History marital status: number of children: 2 occupational status: previously employed Smoking Status: Never smoker alcohol intake: never substance use type: does not use caffeine: Yes Smoking Status: Never smoker alcohol intake frequency: 0-2 drinks per day Substance Use Type: does not use Exam Initial Vital Signs Initial Vital Signs: Vital Signs Temperature 98 F 11/06/20 04:05 Pulse Rate 72 11/06/20 04:05 Respiratory Rate 21 11/06/20 04:05 Blood Pressure 155/73 H 11/06/20 04:05 Pulse Oximetry 98 11/06/20 04:05 Const General: cooperative and healthy appearing Resp Effort & Inspection: normal respiratory effort Cardio Rate: regular rate GI Inspection: normal to inspection Palpation: soft and No tender General: bladder normal to palpation Skin General: no rashes or lesions noted Neuro General: patient alert, patient awake and patient oriented x3 Extrem General: normal to inspection Psych Appearance: grossly normal Course Orders Ordered: ED Orders 11/06/20 04:10 Urinalysis and Microscopic Stat Urine Culture Stat Discontinued Medications Lidocaine HCl (Lidocaine 2% (Glydo) 6 Ml Gel) 6 ml TOP NOW ONE Stop: 11/06/20 04:38 Last Admin: 11/06/20 04:41 Dose: 6 ml Documented by: SAMUEL Vital Signs Vital signs: Vital Signs - 8 hr 11/06/20 04:05 Temperature 98 F Pulse Rate 72 Respiratory Rate 21 Blood Pressure 155/73 H Pulse Oximetry 98 Medical Decision Making Lab Data Labs: Lab Results 11/06/20 Range/Units 04:10 Urine Color [place] Urine Appearance Clear Urine pH 6.5 (4.5-8.0) Ur Specific [place] <=1.005 (1.000-1.035) Urine Protein Negative (Negative) Urine Glucose (UA) Trace H (Negative) g/dL Urine Ketones Negative (NEGATIVE) Urine Occult Blood Negative (Negative) Urine Nitrate Positive H (Negative) Urine Bilirubin Negative (NEGATIVE) Urine Urobilinogen 1.0 (0.2) E.U./dL Ur Leukocyte Esterase Negative (NEGATIVE) Urine RBC 0-1/hpf (0-5/HPF) Urine WBC 0-1/hpf (0-5/HPF) Ur Squamous Epith Cells 0-1 /hpf (0-5/HPF) Urine Bacteria Few (2-10) H (None) Ur Culture Indicated? Culture not indicate MDM Narrative Medical decision making narrative: Patient continues to have a nitrite positive urine today however given his prior culture and sensitivities Bactrim should be an appropriate antibiotic for him. We did re-culture his urine today however this may be skewed given the fact that he has been on antibiotics recently. I have low suspicion for pyelonephritis. Bladder scan showed approximately 300 cc of urine postvoid residual. Had a discussion with him regarding his symptoms. He does seem to be quite uncomfortable given the frequency of the symptoms. The PERT him does not seem to be helping. Link catheter was placed for 2 reasons. This will help with his urinary retention it will also help with his frequency is he will not have to get up to go to the bathroom overnight. He states that he has not been able to sleep longer than 30 minutes for the past several nights because of the discomfort that he is having today. Plan will be is to leave the Link catheter in. Will have him contact his urologist office when they open later today. He will continue with the Bactrim. He was given return precautions. He expressed understanding and agreement. Discharge Plan Departure Patient Disposition: Home Clinical Impression: Acute urinary retention, Acute UTI Instructions: How to Care for Your Link Catheter -- Male Activity Restrictions/Additional Instructions: I do recommend that you continue with the antibiotics. We did re-culture your urine today and like before this does take couple days to come back. Take care the Link like you are instructed. When the office opens later today contact your urologist for a follow-up. Return to the emergency department for any fe vers, back pain, problems with the catheter her any other new symptoms. Prescriptions: No Action citalopram 10 mg tablet 20 mg PO QDAY Qty: 90 RF: 3 alendronate 70 mg tablet 70 mg PO QWEEK Qty: 12 RF: 3 mecobalamin (vitamin B12) 1,000 mcg tablet,disintegrating 1,000 mcg sublingual DAILY RF: 0 cholecalciferol (vitamin D3) 100 mcg (4,000 unit) capsule 100 mcg PO DAILY RF: 0 magnesium 250 mg tablet 375 mg PO DAILY RF: 0 losartan 50 mg tablet 50 mg PO DAILY Qty: 90 RF: 1 sulfamethoxazole-trimethoprim 800-160 mg tablet 1 tab PO BID 10 Days Qty: 20 RF: 0 tamsulosin 0.4 mg capsule 0.4 mg PO BEDTIME Qty: 90 RF: 3 rizatriptan 10 mg tablet,disintegrating RF: 0 ciprofloxacin HCl 500 mg tablet RF: 0 sulfamethoxazole-trimethoprim 800-160 mg tablet 1 tab PO BID RF: 0 phenazopyridine [Pyridium] 200 mg tablet 200 mg PO TID PRN (Reason: pain) Qty: 9 RF: 0 Referrals: Sander Greene MD [Primary Care Provider] -
[2020-11-06] MEDS: LIDOCAINE 2% (GLYDO) 6 ML GEL TOP (04:41)
[2020-11-06 05:19] VITALS: BP 145/78; PULSE 72; RESP 18; O2SAT 99
== END 2020-11-06 05:20 | disposition home or self-care (01) ==
PROVIDERS: Emergency Provider Emergency Medicine; PCP Student in an Organized Health Care Education/Training Program
DX: R33.8 Other retention of urine (principal); N39.0 Urinary tract infection, site not specified
CPT/HCPCS: 51798; 81001; 87086; 99283

== ENCOUNTER 2020-12-05 11:11 | Emergency (ER) | payer OTHER, SELFPAY ==
[2020-12-05 11:50] VITALS: BP 103/56; PULSE 70; RESP 18; TEMP 36.5; O2SAT 95; BMI 21.9
--- NOTE | 2020-12-05 11:58 | DI.RAD.S_ITS ---
PROCEDURE: XR CHEST 1V INDICATIONS: Suspected sepsis TECHNIQUE: One view of the chest was acquired. COMPARISON: None. FINDINGS: Surgical changes and devices: None. Lungs and pleura: Lungs are clear. No pleural effusions or pneumothorax. Mediastinum: Mediastinal contours appear normal. Heart size is normal. Bones and chest wall: No suspicious bony lesions. Overlying soft tissues appear unremarkable. IMPRESSION: No airspace consolidation or abnormal airspace opacity demonstrated. Dictated by: Prabhu Puri M.D. on 12/05/2020 at 12:33 Approved by: Prabhu Puri M.D. on 12/05/2020 at 12:34
[2020-12-05] MEDS: SODIUM CHLORIDE 0.9% 1,000 ML 1000 ML IV (12:26)
[2020-12-05 12:34] LABS: Add Manual Diff / Slide Review NO; Basophils Absolute Auto 0 /uL (0-100); Basophils Percent Auto 0.2 % (0-2); Eosinophils Absolute Auto 0 /uL (0-450); Eosinophils Percent Auto 0.1 % (2-4); Hematocrit 36.8 % (41-53); Hemoglobin 12.3 g/dL (13.5-17.5); Lymphocytes Absolute Auto 800 /uL (1100-4500); Lymphocytes Percent Auto 6.4 % (25-40); Mean Corpuscular HGB Conc 33.4 % (30-36); Mean Corpuscular Volume 95.8 fL (80-100); Monocytes Absolute Auto 1200 /uL (0-900); Monocytes Percent Auto 9.3 % (3-14); Neutrophils Absolute Auto 10800 /uL (1500-7000); Platelet Count 164 X10^3/uL (150-400); Red Blood Cell Count 3.84 X10^6/uL (4.5-5.9); Red Cell Distribution Width 13.9 % (11.6-14.8); White Blood Cell Count 12.9 X10^3/uL (4.5-11.0)
[2020-12-05 12:36] LABS: Bacteria Urine Many (>30); Culture Indicated Urine Specimen Cultured; RBC Urine 0-1/HPF (0-5/HPF); Squamous Epithelial Cell Urine 0-1 /HPF (0-5/HPF); WBC Urine 30-100/HPF (0-5/HPF)
[2020-12-05 12:46] LABS: Lactate (Lactic Acid) 0.8 mmol/L (0.7-2.1)
[2020-12-05 12:48] LABS: Alanine Aminotransferase 22 IU/L (<50); Albumin 4.3 g/dL (3.5-5.0); Albumin Globulin Ratio 1.5 (1.0-2.8); Alkaline Phosphatase 56 U/L (38-126); Aspartate Aminotransferase 27 IU/L (17-59); BUN Creatinine Ratio 15.3 (6-22); Bilirubin Total 1.1 mg/dL (0.2-1.3); Blood Urea Nitrogen 13 mg/dL (9-20); Calcium 9.1 mg/dL (8.4-10.2); Carbon Dioxide 26 mmol/L (22-32); Chloride 104 mmol/L (98-107); Estimated Glomerular Filt Rate > 60.0 mL/min (>60); Globulin 2.9 g/dL (1.7-4.1); Glucose 102 mg/dL (80-110); HEMOLYSIS < 15 (0-50); Lipase 96 U/L (23-300); Sodium 137 mmol/L (137-145); Total Protein 7.2 g/dL (6.3-8.2)
[2020-12-05 13:03] LABS: Procalcitonin 0.12 ng/mL (<0.5)
[2020-12-05 13:20] LABS: COVID19 -Nasal RAPID Negative (Negative)
[2020-12-05 15:50] VITALS: BP 102/58; PULSE 66; RESP 18; O2SAT 97
--- NOTE | 2020-12-05 17:22 | ED_ITS ---
HPI - Male Genitourinary General Chief complaint: Urogenital-Male Stated complaint: INFECTION Time Seen by Provider: 12/05/20 16:37 Source: patient Mode of arrival: Ambulatory Limitations: no limitations History of Present Illness HPI Narrative: This is a 75-year-old male comes emergency department with complaint of infection. Patient had prostatitis. He was initially on an oral antibiotic he was unsure of the name and then was switched secondary to resistance after 5 days. Patient then was placed on Bactrim for possibly 20 days for prostatitis. Patient had quite a bit of improvement. Been off his antibiotics for the 10 days and started to develop dysuria, chills and generally feeling unwell. He had a fever of 101 F at home yesterday. He has not had any fevers since then. He denies any cold, cough or congestion. No chest pain, shortness of breath. Patient has not had any diarrhea or constipation. He has not had difficulty with urination but has had discomfort. Patient states he did have prostate biopsy rectally on 10/28/[address] Holguin. Patient states he had significantly more pain at that time but his initial symptoms were similar to today. Patient states his symptoms are not nearly as intense as last time. He is on medication for osteoporosis, citalopram, losartan and tripped in as needed for migraines. He is also on daily Flomax. He has not had any other or new additional interventions. He denies any allergies to medications. He does express some frustration with being able to contact his urologist. Related Data Home Medications Medication Instructions Recorded Confirmed cholecalciferol (vitamin D3) 100 100 mcg PO DAILY 07/06/20 11/25/20 mcg (4,000 unit) capsule magnesium 250 mg tablet 375 mg PO DAILY tab 07/06/20 11/25/20 mecobalamin (vitamin B12) 1,000 1,000 mcg SUBLINGUAL DAILY 07/06/20 11/25/20 mcg disintegrating tablet,sublingual ciprofloxacin HCl 500 mg tablet mg 11/04/20 11/25/20 sulfamethoxazole 800 1 tab PO BID 11/04/20 11/25/20 mg-trimethoprim 160 mg tablet Turmeric + bioperin PO 11/10/20 11/25/20 flaxseed oil 1,300 mg-omega 3,6,9 cap PO 11/10/20 11/25/20 845 mg-117 mg-117 mg capsule rizatriptan 10 mg disintegrating mg PO PRN 11/10/20 11/25/20 tablet Previous Rx's Medication Instructions Recorded citalopram 10 mg tablet 20 mg PO QDAY #90 tab 04/27/20 alendronate 70 mg tablet 70 mg PO QWEEK #12 tab 05/20/20 losartan 50 mg tablet 50 mg PO DAILY #90 tab 09/24/20 tamsulosin 0.4 mg capsule 0.4 mg PO BEDTIME #90 cap 11/03/20 phenazopyridine 200 mg tablet 200 mg PO TID PRN #9 tab 11/04/20 (Pyridium) hydrocodone 5 mg-acetaminophen 325 1 tab PO Q6H PRN #5 tab 12/05/20 mg tablet sulfamethoxazole 800 1 tab PO Q12H #60 tab 12/05/20 mg-trimethoprim 160 mg tablet (Bactrim DS) Allergies Allergy/AdvReac Type Severity Reaction Status Date / Time No Known Drug Allergies Allergy Verified 12/05/20 11:50 Review of Systems Review of Systems ROS Unobtainable: All systems reviewed & are unremarkable except as noted in HPI and below Patient History Medical History Anxiety BPH w urinary obs/LUTS GERD (gastroesophageal reflux disease) Hypertension Lower urinary tract symptoms (LUTS) Melanoma Migraine headache Osteoporosis Surgical History History of circumcision History of hernia repair History of prostate biopsy History of vasectomy Family History Mother Cancer Hyperlipidemia Hypertension Migraines Father Cancer Social History marital status: number of children: 2 occupational status: previously employed Smoking Status: Never smoker alcohol intake: never substance use type: does not use caffeine: Yes Smoking Status: Never smoker alcohol intake frequency: 0-2 drinks per day Substance Use Type: does not use Exam Narrative Exam Narrative: GENERAL: Alert and oriented x three, well-appearing male in mild distress. HEENT: Head normocephalic, atraumatic, EOMI, pupils reactive, face symmetric, moist mucous membranes NECK: Supple, full range of motion CARDIOVASCULAR: Regular rate and rhythm without murmurs, rubs or gallops. RESPIRATORY: Breath sounds equal bilaterally, no wheezes rales or rhonchi. ABDOMEN: Soft, nontender. Normoactive bowel sounds all 4 quadrants. No guarding or rebound, rigidity, no mass : No CVA tenderness. Patient and I discussed during prostate exam. Patient politely defers. EXTREMITIES: Normal range of motion, no clubbing or edema. Neurovascularly intact NEUROLOGICAL: Cranial nerves II through XII grossly intact. Moving all extremities SKIN: Warm, dry, no petechiae, no rashes or lesions. Initial Vital Signs Initial Vital Signs: Vital Signs Temperature 97.7 F 12/05/20 11:50 Pulse Rate 70 12/05/20 11:50 Respiratory Rate 18 12/05/20 11:50 Blood Pressure 103/56 L 12/05/20 11:50 Pulse Oximetry 95 12/05/20 11:50 Course Orders Ordered: ED Orders 12/05/20 11:58 XR chest 1V Stat 12/05/20 12:10 Complete Blood Count AUTO DIFF Stat Comprehensive Metabolic Panel Stat Lactate (Lactic Acid) Stat Lipase Stat Procalcitonin Stat 12/05/20 12:19 COVID19 -Nasal swab/Pre-Proc Stat Urine Culture Stat Urine Microscopic Stat 12/05/20 16:04 Blood Culture Stat Discontinued Medications Hydrocodone Bitart/Acetaminophen (Hydrocodone/Acet 5/325 Prepack) 1 bottle MISC SEEINSTR ONE Stop: 12/05/20 17:55 Last Admin: 12/05/20 18:18 Dose: 1 bottle Documented by: RAYRAY Sodium Chloride (Normal Saline 0.9%) 1,000 mls @ 1,000 mls/hr IV BOLUS ONE Stop: 12/05/20 12:57 Last Infusion: 12/05/20 14:10 Dose: 0 mls/hr Documented by: Admin: 12/05/20 12:26 Dose: 1,000 mls/hr Documented by: ESTEPHANIE Trimethoprim/Sulfamethoxazole (Trimeth/Sulfa 160/800 Prepack) 1 bottle MISC SEEINSTR ONE Stop: 12/05/20 17:55 Last Admin: 12/05/20 18:08 Dose: Not Given Documented by: RAYRAY Trimethoprim/Sulfamethoxazole (Trimeth/Sulfa 160/800 (Ds) Tablet) 2 tab PO NOW ONE Stop: 12/05/20 18:07 Last Admin: 12/05/20 18:18 Dose: 2 tab Documented by: RAYRAY Vital Signs Vital signs: Vital Signs - 8 hr 12/05/20 11:50 12/05/20 15:50 12/05/20 18:23 Temperature 97.7 F Pulse Rate 70 66 68 Respiratory Rate 18 18 16 Blood Pressure 103/56 L 102/58 L 106/60 Pulse Oximetry 95 97 98 MDM - Male Genitourinary Lab Data Result diagrams: 12/05/20 12:10 12/05/20 12:10 Labs: Lab Results 12/05/20 12/05/20 12/05/20 Range/Units 12:10 12:10 12:10 WBC 12.9 H (4.5-11.0) X10^3/uL RBC 3.84 L (4.5-5.9) X10^6/uL Hgb 12.3 L (13.5-17.5) g/dL Hct 36.8 L (41-53) % MCV 95.8 (80-100) fL MCH 32.0 (26-34) PG MCHC 33.4 (30-36) % RDW 13.9 (11.6-14.8) % Plt Count 164 (150-400) X10^3/uL Neut % (Auto) 84.0 H (50-75) % Lymph % (Auto) 6.4 L (25-40) % [place] % (Auto) 9.3 (3-14) % Eos % (Auto) 0.1 L (2-4) % Baso % (Auto) 0.2 (0-2) % Neut # (Auto) 37708 H (7878-8769) /uL Lymph # (Auto) 800 L (1092-5116) /uL [place] # (Auto) 1200 H (0-900) /uL Eos # (Auto) 0 (0-450) /uL Baso # (Auto) 0 (0-100) /uL Sodium 137 (137-145) mmol/L Potassium 4.0 (3.4-5.1) mmol/L Chloride 104 (98-107) mmol/L Carbon Dioxide 26 (22-32) mmol/L BUN 13 (9-20) mg/dL Creatinine 0.85 (0.66-1.25) mg/dL Estimated GFR > 60.0 (>60) mL/min BUN/Creatinine Ratio 15.3 (6-22) Glucose 102 (80-110) mg/dL Lactate 0.8 (0.7-2.1) mmol/L Calcium 9.1 (8.4-10.2) mg/dL Total Bilirubin 1.1 (0.2-1.3) mg/dL AST 27 (17-59) IU/L ALT 22 (<50) IU/L Alkaline Phosphatase 56 (38-126) U/L Total Protein 7.2 (6.3-8.2) g/dL Albumin 4.3 (3.5-5.0) g/dL Globulin 2.9 (1.7-4.1) g/dL Albumin/Globulin Ratio 1.5 (1.0-2.8) Lipase 96 (23-300) U/L Procalcitonin 0.12 (<0.5) ng/mL Urine RBC (0-5/HPF) Urine WBC (0-5/HPF) Ur Squamous Epith Cells (0-5/HPF) Urine Bacteria (None) Ur Culture Indicated? SARS-CoV-2 (PCR) (Negative) 12/05/20 12/05/20 Range/Units 12:19 12:19 WBC (4.5-11.0) X10^3/uL RBC (4.5-5.9) X10^6/uL Hgb (13.5-17.5) g/dL Hct (41-53) % MCV (80-100) fL MCH (26-34) PG MCHC (30-36) % RDW (11.6-14.8) % Plt Count (150-400) X10^3/uL Neut % (Auto) (50-75) % Lymph % (Auto) (25-40) % [place] % (Auto) (3-14) % Eos % (Auto) (2-4) % Baso % (Auto) (0-2) % Neut # (Auto) (7208-8739) /uL Lymph # (Auto) (5188-4259) /uL [place] # (Auto) (0-900) /uL Eos # (Auto) (0-450) /uL Baso # (Auto) (0-100) /uL Sodium (137-145) mmol/L Potassium (3.4-5.1) mmol/L Chloride (98-107) mmol/L Carbon Dioxide (22-32) mmol/L BUN (9-20) mg/dL Creatinine (0.66-1.25) mg/dL Estimated GFR (>60) mL/min BUN/Creatinine Ratio (6-22) Glucose (80-110) mg/dL Lactate (0.7-2.1) mmol/L Calcium (8.4-10.2) mg/dL Total Bilirubin (0.2-1.3) mg/dL AST (17-59) IU/L ALT (<50) IU/L Alkaline Phosphatase (38-126) U/L Total Protein (6.3-8.2) g/dL Albumin (3.5-5.0) g/dL Globulin (1.7-4.1) g/dL Albumin/Globulin Ratio (1.0-2.8) Lipase (23-300) U/L Procalcitonin (<0.5) ng/mL Urine RBC 0-1/hpf (0-5/HPF) Urine WBC 30-100/hpf H (0-5/HPF) Ur Squamous Epith Cells 0-1 /hpf (0-5/HPF) Urine Bacteria Many (>30) H (None) Ur Culture Indicated? Specimen cultured SARS-CoV-2 (PCR) Negative (Negative) Urine Dip Bedside Urine Glucose Negative Bedside Urine Bilirubin - Negative Bedside Urine Ketone - Negative Urine Specific [place] 1.010 Bedside Urine Occult Blood +/- Bedside Urine pH 7 Bedside Urine Protein - Negative Bedside Urine Urobilinogen - Negative Bedside Urine Nitrite + Positive Bedside Urine Leukocytes ++ 125 Esterase MDM Narrative Medical decision making narrative: 75-year-old male comes to the emergency department with concern for recurrent prostatitis. Patient has nitrite positive urine. He had a culture from the with which positive he had a secondary culture in interim which was negative. Patient had resistance to fluoroqu inolones including Cipro and Levaquin. He was sensitive to Bactrim and had improvement on Bactrim for 20 days. Suspect that he needs a longer course such as 4-6 weeks. We did discuss that fosfamycin may be a potential back up option. Patient labs are reassuring. Patient will follow-up with urology. He has been seeing Dr. Holguin. He has had some difficulty with being able to get into the office so we discussed following with primary care. As this is an option as well for the short term. We also discussed that 4-6 weeks would be appropriate and he may need more than the 30 days medication given. Patient is aware that he needs to follow up this following week for recheck to make sure that there is no other changes or other concerning symptoms that need to be evaluated further. Discharge Plan Departure Patient Disposition: Home Clinical Impression: Prostatitis Instructions: Prostatitis Activity Restrictions/Additional Instructions: Follow up with your physician or urology for recheck in the next week. Even if your symptoms are much better. I suspect you have prostatitis and your prior urine culture from October 31 does show sensitivity to Bactrim or the antibiotic your most recently on. It does show resistance to fluoroquinolones. I would recommend continuing antibiotics for 4-6 weeks. Talk with your physician for Urology to get complete prescription of antibiotics. If this is not successful and alternative antibiotic is possibly fosfomycin. Prescription sent to [facility]. Please return for fevers, new or worsening abdominal, back or flank pain, difficulty or inability to urinate, lightheadedness or passing out, chest pain or shortness of, new redness, warmth or skin changes or other new or concerning symptoms. Prescriptions: New sulfamethoxazole-trimethoprim [Bactrim DS] 800-160 mg tablet 1 tab PO Q12H Qty: 60 RF: 0 hydrocodone-acetaminophen 5-325 mg tablet 1 tab PO Q6H PRN (Reason: pain) Qty: 5 RF: 0 No Action citalopram 10 mg tablet 20 mg PO QDAY Qty: 90 RF: 3 alendronate 70 mg tablet 70 mg PO QWEEK Qty: 12 RF: 3 mecobalamin (vitamin B12) 1,000 mcg tablet,disintegrating 1,000 mcg sublingual DAILY RF: 0 cholecalciferol (vitamin D3) 100 mcg (4,000 unit) capsule 100 mcg PO DAILY RF: 0 magnesium 250 mg tablet 375 mg PO DAILY RF: 0 losartan 50 mg tablet 50 mg PO DAILY Qty: 90 RF: 1 tamsulosin 0.4 mg capsule 0.4 mg PO BEDTIME Qty: 90 RF: 3 rizatriptan 10 mg tablet,disintegrating PO PRNRF: 0 ciprofloxacin HCl 500 mg tablet RF: 0 sulfamethoxazole-trimethoprim 800-160 mg tablet 1 tab PO BID RF: 0 phenazopyridine [Pyridium] 200 mg tablet 200 mg PO TID PRN (Reason: pain) Qty: 9 RF: 0 flaxseed oil-omega 3,6,9 1,300 mg-845 mg -117 mg-117 mg capsule PO RF: 0 Turmeric + bioperin PO RF: 0 Referrals: Sander Greene MD [Primary Care Provider] - Seema Bello MD [Non-Staff] - Rahul Holguin MD [Physician] -
[2020-12-05] MEDS: TRIMETH/SULFA 160/800 (DS) TABLET 2 TAB PO (18:18)
[2020-12-05] MEDS: HYDROCODONE/ACET 5/325 PREPACK 1 BOTTLE MISC (18:18)
[2020-12-05 18:23] VITALS: BP 106/60; PULSE 68; RESP 16; O2SAT 98
== END 2020-12-05 18:23 | disposition home or self-care (01) ==
PROVIDERS: Emergency Provider Emergency Medicine; PCP Student in an Organized Health Care Education/Training Program
DX: N41.9 Inflammatory disease of prostate, unspecified (principal); Z20.822 Contact with and (suspected) exposure to COVID-19
CPT/HCPCS: 36415; 71045; 80053; 81003; 81015; 83605; 83690; 84145; 85025; 87040; 87077; 87086; 87186; 87635; 96360; 96361; 99284; C9803

== ENCOUNTER → 2021-03-15 14:12 | Outpatient (CLI) | payer OTHER, SELFPAY ==
--- NOTE | 2021-03-15 14:14 | DI.RAD.S_ITS ---
PROCEDURE: XR DEXA AXIAL SKELETON INDICATIONS: Bone density monitoring COMPARISON: [facility], CR, XR DEXA AXIAL SKELETON, 02/19/2020, 13:41. FINDINGS: This blank DEXA report has been sent in error by the PACS system. The correct and complete report will be forthcoming in 1-2 days. Thank you for your patience and understanding. Dictated by: Ceci Byrd MD, PhD on 03/15/2021 at 16:35 Approved by: Ceci Byrd MD, PhD on 03/15/2021 at 16:35
== END ==
PROVIDERS: PCP Student in an Organized Health Care Education/Training Program; Referring Provider Student in an Organized Health Care Education/Training Program; Visit Provider Student in an Organized Health Care Education/Training Program
DX: M81.0 Age-related osteoporosis without current pathological fracture (principal)
CPT/HCPCS: 77080

== ENCOUNTER → 2022-02-22 17:09 | Outpatient (CLI) | payer OTHER, SELFPAY ==
[2022-02-22 18:28] LABS: BUN Creatinine Ratio 16.7 (6-22); Blood Urea Nitrogen 14 mg/dL (9-20); Calcium 8.8 mg/dL (8.4-10.2); Carbon Dioxide 26 mmol/L (22-32); Chloride 104 mmol/L (98-107); Estimated Glomerular Filt Rate > 60 mL/min (>60); Glucose 91 mg/dL (80-110); HEMOLYSIS < 15 (0-50); Potassium 4.5 mmol/L (3.4-5.1); Sodium 138 mmol/L (137-145)
== END ==
PROVIDERS: PCP Student in an Organized Health Care Education/Training Program; Referring Provider Student in an Organized Health Care Education/Training Program; Visit Provider Student in an Organized Health Care Education/Training Program
DX: I10 Essential (primary) hypertension (principal); M81.0 Age-related osteoporosis without current pathological fracture; Z79.899 Other long term (current) drug therapy
CPT/HCPCS: 36415; 80048

== ENCOUNTER → 2022-03-04 11:48 | Outpatient (CLI) | payer OTHER, SELFPAY | PROVIDERS: PCP Student in an Organized Health Care Education/Training Program; Referring Provider Student in an Organized Health Care Education/Training Program; Visit Provider Student in an Organized Health Care Education/Training Program | DX: M81.0 Age-related osteoporosis without current pathological fracture (principal) | CPT/HCPCS: 77080 ==

== ENCOUNTER → 2023-01-16 15:12 | Outpatient (CLI) | payer OTHER, SELFPAY ==
--- NOTE | 2023-01-16 15:14 | DI.RAD.S_ITS ---
PROCEDURE: XR THORACIC SPINE 3V INDICATIONS: OSTEOPOROSIS TECHNIQUE: 3 views of the thoracic spine were acquired. COMPARISON: [facility], CR, XR THORACIC SPINE 3V, 05/25/2020, 14:42. FINDINGS: Bones: No fractures or dislocations. Degenerative endplate changes and loss of disc height throughout thoracic spine is seen. No suspicious bony lesions. 12 pairs of ribs are noted, and appear intact where visualized. Soft tissues: No paravertebral stripe thickening. IMPRESSION: [id number] degenerative disc disease throughout thoracic spine not significantly changed from previous study. No acute compression fracture or spondylolisthesis. Dictated by: Satinder Borden M.D. on 01/16/2023 at 17:24 Approved by: Satinder Borden M.D. on 01/16/2023 at 17:25
== END ==
PROVIDERS: PCP Student in an Organized Health Care Education/Training Program; Referring Provider Internal Medicine; Visit Provider Internal Medicine
DX: M51.34 Other intervertebral disc degeneration, thoracic region (principal); M81.8 Other osteoporosis without current pathological fracture
CPT/HCPCS: 72072

== ENCOUNTER → 2023-02-28 15:36 | Outpatient (CLI) | payer OTHER, SELFPAY ==
[2023-02-28 17:19] LABS: Add Manual Diff / Slide Review NO; Basophils Absolute Auto 0 /uL (0-100); Basophils Percent Auto 0.5 % (0-2); Eosinophils Absolute Auto 200 /uL (0-450); Eosinophils Percent Auto 2.9 % (2-4); Hematocrit 37.8 % (41-53); Lymphocytes Absolute Auto 1600 /uL (1100-4500); Lymphocytes Percent Auto 27.6 % (25-40); Mean Corpuscular HGB Conc 34.3 % (30-36); Mean Corpuscular Hemoglobin 31.8 PG (26-34); Mean Corpuscular Volume 92.5 fL (80-100); Monocytes Absolute Auto 600 /uL (0-900); Monocytes Percent Auto 10.7 % (3-14); Neutrophils Absolute Auto 3400 /uL (1500-7000); Neutrophils Percent Auto 58.3 % (50-75); Platelet Count 218 X10^3/uL (150-400); Red Blood Cell Count 4.09 X10^6/uL (4.5-5.9); Red Cell Distribution Width 12.7 % (11.6-14.8); White Blood Cell Count 5.9 X10^3/uL (4.5-11.0)
[2023-02-28 17:28] LABS: Alanine Aminotransferase 21 IU/L (<50); Albumin 4.3 g/dL (3.5-5.0); Albumin Globulin Ratio 1.5 (1.0-2.8); Alkaline Phosphatase 53 U/L (38-126); Aspartate Aminotransferase 27 IU/L (17-59); BUN Creatinine Ratio 20.8 (6-22); Bilirubin Total 0.6 mg/dL (0.2-1.3); Blood Urea Nitrogen 16 mg/dL (9-20); Calcium 9.3 mg/dL (8.4-10.2); Carbon Dioxide 27 mmol/L (22-32); Chloride 105 mmol/L (98-107); Cholesterol 170 mg/dL (140-199); Estimated Glomerular Filt Rate > 60 mL/min (>60); Globulin 2.8 g/dL (1.7-4.1); Glucose 86 mg/dL (80-110); HDL Cholesterol 45 mg/dL (40-60); HEMOLYSIS < 15 (0-50); LDL Cholesterol Calculated 91 mg/dL (<100); Potassium 4.1 mmol/L (3.4-5.1); Sodium 138 mmol/L (137-145); Total Protein 7.1 g/dL (6.3-8.2); Triglycerides 172 mg/dL (35-150)
== END ==
PROVIDERS: PCP Family Medicine; Referring Provider Family Medicine; Visit Provider Family Medicine
DX: I10 Essential (primary) hypertension (principal); Z00.00 Encounter for general adult medical examination without abnormal findings
CPT/HCPCS: 36415; 80053; 80061; 85025

== ENCOUNTER → 2023-12-25 15:52 | Outpatient (CLI) | payer OTHER, SELFPAY ==
--- NOTE | 2023-12-25 15:53 | DI.RAD.S_ITS ---
PROCEDURE: XR HIP W PEL IF DONE RT 2V INDICATIONS: Rt hip pain TECHNIQUE: AP pelvis with lateral view(s) of the right hip(s). COMPARISON: None. FINDINGS: Bones: No fractures or dislocations. [id number] bilateral hip joint osteoarthritic changes are seen. No evidence of avascular necrosis of femoral heads. Pelvic ring appears intact. No suspicious bony lesions. Soft tissues: The visualized bowel gas pattern is normal. No suspicious soft tissue calcifications. IMPRESSION: No pelvic or hip fracture. Symmetric appearing [id number] bilateral hip joint osteoarthritis. No evidence of avascular necrosis. Dictated by: Satinder Borden M.D. on 12/25/2023 at 22:32 Approved by: Satinder Borden M.D. on 12/25/2023 at 22:33
== END ==
LOC: RAD 15:53
PROVIDERS: PCP Family Medicine; Referring Provider Family Medicine; Visit Provider Family Medicine
DX: M25.551 Pain in right hip (principal); M67.441 Ganglion, right hand
CPT/HCPCS: 73502

== ENCOUNTER → 2024-02-15 14:53 | Outpatient (CLI) | payer OTHER, SELFPAY ==
[2024-02-15 16:50] LABS: Prostate Specific Antigen 7.99 ng/mL (0.10-4.00)
== END ==
PROVIDERS: PCP Family Medicine; Referring Provider Urology; Visit Provider Urology
DX: N40.1 Benign prostatic hyperplasia with lower urinary tract symptoms (principal); N13.8 Other obstructive and reflux uropathy; K40.90 Unilateral inguinal hernia, without obstruction or gangrene, not specified as recurrent; K40.91 Unilateral inguinal hernia, without obstruction or gangrene, recurrent
CPT/HCPCS: 36415; 84153; 99214

== ENCOUNTER 2024-03-06 08:58 | Day surgery (SDC) | payer OTHER, SELFPAY ==
[2024-03-01 08:43] VITALS: BMI 21.4
--- NOTE | 2024-03-05 11:49 | PM.PREOP ---
Pre-operative Note Interval Note History & Physical reviewed/Exam performed by Physician: Yes Changes to H&P: No
[2024-03-06] VITALS (7 sets, daily range): BP systolic 123–143; BP diastolic 59–77; PULSE 71–91; RESP 9–18; TEMP 36.1–36.3; O2SAT 91–100; BMI 21.2
[2024-03-06] MEDS: LACTATED RINGERS 1,000 ML 42 ML IV ×2 (09:20→11:46)
--- NOTE | 2024-03-06 10:26 | P.OP_ITS ---
Operative Date/Time/Diagnoses Date of procedure: 03/06/24 Time of procedure: 12:53 Pre-op diagnosis: Recurrent left inguinal hernia Right inguinal hernia Post-op diagnosis: same Procedure & Clinicians Procedure: Laparoscopic repair of recurrent left inguinal hernia Laparoscopic repair right inguinal hernia Same procedure as scheduled: Yes Indications: Symptomatic bilateral inguinal hernia Surgeon: Jeff Harris Click Yes if Unassisted: Yes Anesthesia Type: General Operative Notes Findings: Indirect left, direct right Specimen(s): none sent Estimated Blood Loss (mL): 20 Procedure in detail: The patient was brought to the operating room and placed supine on the table. Bilateral sequential compression devices were applied. General anesthesia was induced and they were intubated with an endotracheal tube. A alonzo cath was placed in sterile fashion. They received 2 g Ancef prior to skin incision. They were prepped and draped in sterile fashion. A time out was performed to ensure the correct patient, procedure and necessary equipment within the operating room. The skin was infiltrated with 0.25% bupivicaine. A 1 cm supra umbilical midline incision was made. The fascia was sharply incised and the abdomen entered traumatically. A 10mm balloon port was placed and pneumoperitoneum was established at 15mm Hg. Inspection of the abdomen demonstrated no evidence of injury upon entry. Two 5 mm ports were then placed under direct visualization in the right and left lower quadrant lateral to the rectus muscle. A direct right inguinal hernia and an indirect left inguinal hernia were observed. Starting on the left side the peritoneum 4 cm superior to the deep inguinal ring between the medial umbilical ligament and the anterior superior iliac spine was incised. The medial preperitoneal dissection was carried out into the space of Retzius bluntly, the bladder was swept inferiorly, the pubis and Thomas's ligament were identified. Next attention was turned towards the lateral aspect of the peritoneal flap. The preperitoneal fat with the testicular vessels was carefully dissected off the inferior peritoneal flap. The cord was carefully inspected there was an indirect hernia which was skeltonized off the cord preserving the testicular vessels and the vas deferns. No direct defect. A large Bard 3D Max mesh was then placed into the abdomen and positioned such that the myopectineal orifice was completely covered with good overlap on all sides. The peritoneal flap was then repositioned back to its original position and a running V lock suture was used to close the peritoneum such that no bowel could herniate into the preperitoneal space. The area was examined for hemostasis. Next the right side was addressed. The peritoneum 4 cm superior to the deep inguinal ring between the medial umbilical ligament and the anterior superior iliac spine was incised. The medial preperitoneal dissection was carried out into the space of Retzius bluntly, the bladder was swept inferiorly, the pubis and Thomas's ligament were identified. Next attention was turned towards the lateral aspect of the peritoneal flap. The preperitoneal fat with the testicular vessels was carefully dissected off the inferior peritoneal flap. The cord was carefully inspected there was no sid dence of indirect defect or cord lipoma. The attachements to the direct hernia sac were divided and the direct defect was reduced. A large Bard 3D Max mesh was then placed into the abdomen and positioned such that the myopectineal orifice was completely covered with good overlap on all sides. The peritoneal flap was then repositioned back to its original position and a running V lock suture was used to close the peritoneum such that no bowel could herniate into the preperitoneal space. The area was examined for hemostasis. The 5mm trocars were removed under direct visualization and pneumoperitoneum was deflated through the umbilical trocar, The fascia at the umbilicus was closed with 0-Vicryl in figure of 8 fashion, skin closed with 4-0 Monocyl followed by Dermabond. The sponge and instrument count at the end of the case was correct. Both testicles were entirely within the scrotum at the end of the case. The patient emerged from anesthsia was extubated and transferred to recovery in stable condition. Complications: none Post-operative Condition: stable Disposition: same day surgery
[2024-03-06] MEDS: CEFAZOLIN 2 GM/100 ML PREMIX 100 ML IV (10:55)
[2024-03-06] MEDS: BUPIVACAINE 0.25% (PF) VIAL 30 ML INJ (11:05)
--- NOTE | 2024-03-06 11:15 | SUR.OPER ---
Supine on padded OR bed, head on pillow, arms padded and tucked at sides, legs uncrossed, safety belt at thigh, tape over blanket over lower legs .
== END 2024-03-06 14:09 | disposition home or self-care (01) ==
PROVIDERS: Family Provider Family Medicine; PCP Family Medicine; Referring Provider Surgery; Visit Provider Surgery
PROC: 0YQ64ZZ Repair Left Inguinal Region, Percutaneous Endoscopic Approach (ICD-10-PCS; CPT 49651; principal; 2024-03-06 10:45)
DX: K40.91 Unilateral inguinal hernia, without obstruction or gangrene, recurrent
CPT/HCPCS: 49651; 82962; J0330; J0690; J1100; J2250; J2405; J2704; J3010

== ENCOUNTER 2024-03-07 01:05 | Emergency (ER) | payer OTHER, SELFPAY ==
[2024-03-07 01:39] VITALS: BP 142/67; PULSE 78; RESP 18; TEMP 36.6; O2SAT 98
--- NOTE | 2024-03-07 01:43 | ED.MALEGU ---
HPI - Male Genitourinary General Chief complaint: Urogenital-Male Stated complaint: can't urinate, had double hernia op earlier Time Seen by Provider: 03/07/24 01:37 History of Present Illness HPI Narrative: Patient is a 78-year-old male presenting today with difficulty with urination. He underwent bilateral laparoscopic inguinal hernia repair earlier today. He has been drinking plenty of fluids trying to urinate and only getting small amounts. Link catheter has been placed he has had over 1 L out overall feeling much better. He does have some contusion around his scrotum. But denies testicular pain. No abdominal pain nausea or vomiting. Related Data Home Medications Medication Instructions Recorded Confirmed calcipotriene 0.005 % topical cream 1 applic topical DAILY 02/22/22 03/06/24 Previous Rx's Medication Instructions Recorded alendronate 70 mg tablet 70 mg PO QWEEK #12 tabs 04/12/23 alfuzosin 10 mg tablet,extended 10 mg PO DAILY #90 tabs 04/12/23 release 24 hr citalopram 20 mg tablet 20 mg PO DAILY #90 tabs 04/12/23 losartan 50 mg tablet 50 mg PO DAILY #90 tabs 04/12/23 methocarbamol 750 mg tablet 750 mg PO TID PRN muscle spasm #90 04/12/23 tabs rizatriptan 10 mg disintegrating 10 mg PO Q2H PRN migraine headache 04/12/23 tablet #30 tabs acetaminophen 325 mg capsule 650 mg (2 x 325 mg) PO QID PRN 03/06/24 (Tylenol) pain #60 caps docusate sodium 100 mg capsule 100 mg PO BID #30 caps 03/06/24 (Colace) tramadol 50 mg tablet 50 mg PO Q6H PRN pain #15 tabs 03/06/24 Allergies Allergy/AdvReac Type Severity Reaction Status Date / Time No Known Drug Allergies Allergy Verified 03/06/24 09:24 Patient History Medical History Encounter for subsequent annual wellness visit in Medicare patient Muscle spasm of back BPH w urinary obs/LUTS Melanoma Elevated PSA Osteoporosis Migraine headache GERD (gastroesophageal reflux disease) Anxiety Hypertension Surgical History History of vasectomy History of prostate biopsy History of circumcision History of hernia repair Family History Mother Cancer Hyperlipidemia Hypertension Migraines Father Cancer Social History marital status: number of children: 2 household members: spouse lives independently: Yes occupational status: previously employed Smoking Status: Never smoker alcohol intake: former substance use type: does not use caffeine: Yes Smoking Status: Never smoker alcohol intake frequency: 0-2 drinks per day Substance Use Type: does not use Exam Initial Vital Signs Initial Vital Signs: Vital Signs Temperature 97.8 F 03/07/24 01:39 Pulse Rate 78 03/07/24 01:39 Respiratory Rate 18 03/07/24 01:39 Blood Pressure 142/67 H 03/07/24 01:39 Pulse Oximetry 98 03/07/24 01:39 Oxygen Delivery Method Room Air 03/07/24 01:39 GENERAL: Well-appearing, well-nourished and in no acute distress. CARDIOVASCULAR: peripheral pulses in tact, cap refill <2 sec RESPIRATORY: No respiratory distress, speaks in full sentences without difficulty ABDOMEN: Soft, nontender, no guarding or rebound incision sites clean and dry : Swollen scrotum non tender mild contusion EXTREMITIES: Normal range of motion, no clubbing or edema. Neurovascularly intact NEUROLOGICAL: Cranial nerves II through XII grossly intact. Normal gait and speech. SKIN: Warm, dry, no petechiae, no rashes or lesions. Course Orders Ordered: ED Orders 03/07/24 01:52 UA Complete [Urinalysis and Microscopic] Stat Discontinued Medications Lidocaine HCl (Lidocaine 2% (Glydo) 6 Ml Gel) 6 ml TOP NOW ONE Stop: 03/07/24 01:26 Last Admin: 03/07/24 01:51 Dose: 6 ml Documented By: JAMILAH Vital Signs Vital signs: Vital Signs - 8 hr 03/07/24 01:39 03/07/24 02:21 Temperature 97.8 F Pulse Rate 78 67 Respiratory Rate 18 16 Blood Pressure 142/67 H 139/68 Pulse Oximetry 98 96 Oxygen Delivery Method Room Air Room Air MDM - Male Genitourinary Lab Data Labs: Lab Results 03/07/24 Range/Units 01:52 Urine Color Yellow Urine Appearance Clear Urine pH 6.0 (4.5-8.0) Ur Specific [place] <=1.005 (1.000-1.035) Urine Protein Negative (Negative) Urine Glucose (UA) Negative (Negative) g/dL Urine Ketones Negative (NEGATIVE) Urine Occult Blood Negative (Negative) Urine Nitrate Negative (Negative) Urine Bilirubin Negative (NEGATIVE) Urine Urobilinogen 0.2 (0.2) E.U./dL Ur Leukocyte Esterase Negative (NEGATIVE) Urine RBC None seen (0-5/HPF) Urine WBC None seen (0-5/HPF) Ur Squamous Epith Cells 0-1 /hpf (0-5/HPF) Urine Bacteria None seen (None) Ur Culture Indicated? Cult not indicated Vol Urine Centrifuged 10ml (spun) MDM Narrative Medical decision making narrative: Patient 78-year-old male who presents today with urinary retention. He had surgery earlier in the day. Overall feeling much better with Link catheter over a L has been drained out. At this time recommend follow-up with surgery for catheter removal Discharge Plan Departure Patient Disposition: Home Clinical Impression: Acute urinary retention Instructions: How to Care for Your Link Catheter -- Male, DI for Urinary Retention in Men Activity Restrictions/Additional Instructions: *You have been diagnosed with urinary retention *What to do: Keep Link catheter in place or couple of days call surgery or your primary care they should be able to remove it for you *Continue to take medications as directed Continue to take tramadol *Follow up with your primary care provider in 2-3 days or call [phone] *Return to ER if you should have any new, worsening or concerning symptoms Prescriptions: No Action calcipotriene 0.005 % cream 1 applic topical DAILY Rx Instructions: rub in gently and completely methocarbamol 750 mg tablet 750 mg PO TID PRN (Reason: muscle spasm) Qty: 90 5RF rizatriptan 10 mg tablet,disintegrating 10 mg PO Q2H MDD 20mg PRN (Reason: migraine headache) Qty: 30 11RF alendronate 70 mg tablet 70 mg PO QWEEK Qty: 12 3RF alfuzosin 10 mg tablet extended release 24 hr 10 mg PO DAILY Qty: 90 3RF Rx Instructions: administer after the same meal each day citalopram 20 mg tablet 20 mg PO DAILY Qty: 90 3RF losartan 50 mg tablet 50 mg PO DAILY Qty: 90 3RF docusate sodium [Colace] 100 mg capsule 100 mg PO BID Qty: 30 0RF tramadol 50 mg tablet 50 mg PO Q6H PRN (Reason: pain) Qty: 15 0RF acetaminophen [Tylenol] 325 mg capsule 650 mg PO QID PRN (Reason: pain) Qty: 60 0RF Referrals: Jeff Harris MD [Physician] - Rihci Fuentes DO [Primary Care Provider] - Stand Alone Forms: Patient Portal/API/Survey
--- NOTE | 2024-03-07 01:50 | PC.NURSE ---
see triage note, pt incisions to abd intact no redness or draining noted, pt's scrotum noted swollen and bruised, elle size of a soft ball alonzo inserted without difficulty with 800 ml clear yellow urine returned, pt felt immediate relief
[2024-03-07] MEDS: LIDOCAINE 2% (GLYDO) 6 ML GEL TOP (01:51)
[2024-03-07 02:05] LABS: Appearance Urine UA CLEAR; Bilirubin Urine UA NEGATIVE (NEGATIVE); Color Urine UA YELLOW; Glucose Urine UA NEGATIVE (Negative); Ketones Urine UA NEGATIVE (NEGATIVE); Leukocyte Esterase Urine UA NEGATIVE (NEGATIVE); Nitrite Urine UA NEGATIVE (Negative); Occult Blood Urine UA NEGATIVE (Negative); Protein Urine UA NEGATIVE (Negative); Specific Gravity Urine UA <=1.005 (1.000-1.035); Urobilinogen Urine UA 0.2 E.U./dL (0.2)
[2024-03-07 02:14] LABS: Bacteria Urine None Seen; Culture Indicated Urine Cult Not Indicated; RBC Urine None Seen (0-5/HPF); Squamous Epithelial Cell Urine 0-1 /HPF (0-5/HPF); Urine Volume 10mL (spun); WBC Urine None Seen (0-5/HPF)
[2024-03-07 02:21] VITALS: BP 139/68; PULSE 67; RESP 16; O2SAT 96
== END 2024-03-07 02:22 | disposition home or self-care (01) ==
PROVIDERS: Emergency Provider Emergency Medicine; Family Provider Family Medicine; PCP Family Medicine
DX: R33.8 Other retention of urine (principal)
CPT/HCPCS: 81001; 99283

== ENCOUNTER 2024-03-13 10:21 | Emergency (ER) | payer OTHER, SELFPAY ==
[2024-03-13 10:22] VITALS: BP 128/59; PULSE 81; RESP 14; TEMP 36.6; O2SAT 98; BMI 21.6
[2024-03-13 11:05] LABS: Appearance Urine UA CLEAR; Bilirubin Urine UA NEGATIVE (NEGATIVE); Color Urine UA YELLOW; Glucose Urine UA NEGATIVE (Negative); Ketones Urine UA NEGATIVE (NEGATIVE); Leukocyte Esterase Urine UA NEGATIVE (NEGATIVE); Nitrite Urine UA POSITIVE (Negative); Occult Blood Urine UA 2+ (Negative); Protein Urine UA NEGATIVE (Negative); Specific Gravity Urine UA <=1.005 (1.000-1.035); Urine Volume 10mL (spun); Urobilinogen Urine UA 0.2 E.U./dL (0.2); pH Urine UA 6.5 (4.5-8.0)
[2024-03-13 11:09] LABS: Bacteria Urine Many (>30); Culture Indicated Urine Specimen Cultured; RBC Urine 1-5/HPF (0-5/HPF); Squamous Epithelial Cell Urine None Seen (0-5/HPF); WBC Urine None Seen (0-5/HPF)
--- NOTE | 2024-03-13 13:07 | ED_ITS ---
HPI - General Adult General Chief complaint: Urogenital-Male Stated complaint: cath issues, pain Time Seen by Provider: 03/13/24 12:19 Source: patient Mode of arrival: Ambulatory History of Present Illness HPI narrative: 78-year-old male status post bilateral inguinal hernia surgery [facility] Dr. Harris on 03/06/2024, subsequent next day urinary retention with Link placement here in the emergency department, subsequent significant swelling to penis and scrotum, that seems to be decreasing, patient would prefer to have catheter taken out, felt somewhat feverish today however. Denies back pain. Denies nausea or vomiting. Denies upper abdominal pain. Denies chest pain shortness of breath. Related Data Home Medications Medication Instructions Recorded Confirmed calcipotriene 0.005 % topical cream 1 applic topical DAILY 02/22/22 03/06/24 Previous Rx's Medication Instructions Recorded alendronate 70 mg tablet 70 mg PO QWEEK #12 tabs 04/12/23 alfuzosin 10 mg tablet,extended 10 mg PO DAILY #90 tabs 04/12/23 release 24 hr citalopram 20 mg tablet 20 mg PO DAILY #90 tabs 04/12/23 losartan 50 mg tablet 50 mg PO DAILY #90 tabs 04/12/23 methocarbamol 750 mg tablet 750 mg PO TID PRN muscle spasm #90 04/12/23 tabs rizatriptan 10 mg disintegrating 10 mg PO Q2H PRN migraine headache 04/12/23 tablet #30 tabs acetaminophen 325 mg capsule 650 mg (2 x 325 mg) PO QID PRN 03/06/24 (Tylenol) pain #60 caps docusate sodium 100 mg capsule 100 mg PO BID #30 caps 03/06/24 (Colace) celecoxib 200 mg capsule (Celebrex) 200 mg PO BID #20 caps 03/12/24 oxycodone 5 mg tablet 5 mg PO Q6H PRN pain #25 tabs 03/12/24 cefdinir 300 mg capsule 300 mg PO BID 7 days #14 caps 03/13/24 Allergies Allergy/AdvReac Type Severity Reaction Status Date / Time No Known Drug Allergies Allergy Verified 03/13/24 10:32 Review of Systems Review of Systems Narrative: see HPI Patient History Medical History Encounter for subsequent annual wellness visit in Medicare patient Muscle spasm of back BPH w urinary obs/LUTS Melanoma Elevated PSA Osteoporosis Migraine headache GERD (gastroesophageal reflux disease) Anxiety Hypertension Surgical History History of vasectomy History of prostate biopsy History of circumcision History of hernia repair Family History Mother Cancer Hyperlipidemia Hypertension Migraines Father Cancer Social History marital status: number of children: 2 household members: spouse lives independently: Yes occupational status: previously employed Smoking Status: Never smoker alcohol intake: former substance use type: does not use caffeine: Yes Smoking Status: Never smoker alcohol intake frequency: 0-2 drinks per day Substance Use Type: does not use Exam Narrative Exam Narrative: GENERAL: Well-developed patient, in mild distress. HEAD: Atraumatic. Normocephalic. EYES: Pupils equal round and reactive. Extraocular motions intact. No scleral icterus. No injection or drainage. ENT: Nose without bleeding, purulent drainage. Throat without erythema, tonsillar hypertrophy or exudate. Airway patent. NECK: Trachea midline. Non tender CARDIOVASCULAR: Regular rate and rhythm without murmurs, gallops, or rubs. RESPIRATORY: Clear to auscultation. Breath sounds equal bilaterally. No wheezes, rales, or rhonchi. GASTROINTESTINAL: Abdomen soft, non-tender, nondistended. EXTREMITIES: No edema or joint tenderness. BACK: Nontender without deformity or crepitance. No flank tenderness. NEURO: AOx3. Motor functions grossly nonfocal SKIN: No rash or erythema of visible areas Initial Vital Signs Initial Vital Signs: Vital Signs Temperature 97.9 F 03/13/24 10:22 Pulse Rate 81 03/13/24 10:22 Respiratory Rate 14 03/13/24 10:22 Blood Pressure 128/59 L 03/13/24 10:22 Pulse Oximetry 98 03/13/24 10:22 Oxygen Delivery Method Room Air 03/13/24 10:22 Course Orders Ordered: ED Orders 03/13/24 11:00 Urinalysis and Microscopic Stat Urine Culture Stat 03/13/24 13:14 US scrotum Stat Discontinued Medications Cefdinir (Cefdinir 300 Mg Capsule) 300 mg PO NOW ONE Stop: 03/13/24 12:54 Last Admin: 03/13/24 13:20 Dose: 300 mg Documented By: MANISH Vital Signs Vital signs: Vital Signs - 8 hr 03/13/24 14:49 03/13/24 14:49 Pulse Rate 77 Blood Pressure 145/78 H Pulse Oximetry 99 Oxygen Delivery Method Room Air Medical Decision Making Lab Data Lab results reviewed: Yes I reviewed the patient's lab results. Lab results narrative: Urinalysis suspicious for infection, urine culture pending Labs: Lab Results 03/13/24 Range/Units 11:00 Urine Color Yellow Urine Appearance Clear Urine pH 6.5 (4.5-8.0) Ur Specific [place] <=1.005 (1.000-1.035) Urine Protein Negative (Negative) Urine Glucose (UA) Negative (Negative) g/dL Urine Ketones Negative (NEGATIVE) Urine Occult Blood 2+ H (Negative) Urine Nitrate Positive H (Negative) Urine Bilirubin Negative (NEGATIVE) Urine Urobilinogen 0.2 (0.2) E.U./dL Ur Leukocyte Esterase Negative (NEGATIVE) Urine RBC 1-5/hpf (0-5/HPF) Urine WBC None seen (0-5/HPF) Ur Squamous Epith Cells None seen (0-5/HPF) Urine Bacteria Many (>30) H (None) Ur Culture Indicated? Specimen cultured Vol Urine Centrifuged 10ml (spun) Imaging Data Ultrasound scrotum: Radiologist's Impression: [place] [address] Ultrasound Report Signed Patient: Yordy Zhu MR#: [id number] : 1945 Acct:[id number] Age/Sex: 78 / M Date of Service: 03/13/24 Loc: ED Accession Number: [id number] Procedure: US scrotum Ordering Provider: Saran Peter MD PROCEDURE: US SCROTUM INDICATIONS: SWELLING 1 WEEK POST BILAT GROIN HERNIA REPAIR, REPORTEDLY IMPROVING. TECHNIQUE: Real-time focused scanning was performed of the inguinal region, with image documentation. COMPARISON: None. FINDINGS: The right testicle measures 2.5 x 2.6 x 3.5 cm and shows no evidence of mass or hyperemia. Complex a vascular material is noted at the right hemiscrotum consistent with postoperative clot. On the left the testicle also is normal in size measuring 2.6 x 3.3 x 3.4 cm and again noted similar to that on the right is presumed postoperative clot. IMPRESSION: No evidence of testicular torsion or mass. Presumed bilateral postoperative peritesticular clot. No hyperemia associated. Dictated by: Samson Sheehan M.D. on 03/13/2024 at 13:58 Approved by: Samson Sheehan M.D. on 03/13/2024 at 14:01 [facility] Narrative Medical decision making narrative: 78-year-old male with recent bilateral inguinal hernia surgery, subsequently had urinary retention and Link placement, significant swelling to penis and scrotum, we would like Link catheter removed, feeling feverish however. No fever on triage noted, normotensive. Labs sent. Urinalysis pending. Has edema to the tip of the penis and also bruising changes and swelling [id number]-right scrotum, apparently this is improved from recent couple of days for patient. We will image with ultrasound scrotum. Urinalysis suspicious for infection, oral cefdinir dose Scrotal ultrasound shows no torsion, small hematoma near 1 testicle insignificant. See radiology report. Prescription for further antibiotics sent to his pharmacy. Encouraged [id number] analgesics as needed. We discussed removal of Link catheter, however he does have penile and scrotal edema that seems to be improving, if we take it out now he might require repeat catheterization, he likes to leave it in place for now and we will have removed in 2-3 more days with anticipated further improvement in penile/scrotal edema. Return precautions discussed. Advised recheck with his regular provider in the next 2-3 days to consider catheter removal, versus with Urology, versus here in the emergency department. Return precautions discussed. Home with family Discharge Plan Departure Patient Disposition: Home Clinical Impression: Urinary tract infection Instructions: DI for Urinary Tract Infection (UTI) Activity Restrictions/Additional Instructions: Inguinal hernia repair, postoperative urinary retention, Link catheter placed, subjective feverishness today, no measured fever on triage. Urinalysis suspicious for infection, urine culture requested. First dose antibiotic cefdinir given, prescription sent to your pharmacy for further antibiotic course. You had significant swelling postoperative to your penis and scrotal area, ultrasound showed good flow to both testes, small hematoma to 1 of the testes, no significant findings. However this degree of swelling that sounds like it is improving for the last couple of days could make it difficult to be able to urinate post removal of the catheter. You elected to continue to have the catheter in place, consider removal in the next 2-3 days in the office of your regular doctor, or local urology office, or return in the emergency department here. Contact information given for local urologists. Return to the department earlier for any change worsening symptoms or any concerns prior Prescriptions: New cefdinir 300 mg capsule 300 mg PO BID 7 Days Qty: 14 0RF No Action oxycodone 5 mg tablet 5 mg PO Q6H PRN (Reason: pain) Qty: 25 0RF celecoxib [Celebrex] 200 mg capsule 200 mg PO BID Qty: 20 0RF calcipotriene 0.005 % cream 1 applic topical DAILY Rx Instructions: rub in gently and completely methocarbamol 750 mg tablet 750 mg PO TID PRN (Reason: muscle spasm) Qty: 90 5RF rizatriptan 10 mg tablet,disintegrating 10 mg PO Q2H MDD 20mg PRN (Reason: migraine headache) Qty: 30 11RF alendronate 70 mg tablet 70 mg PO QWEEK Qty: 12 3RF alfuzosin 10 mg tablet extended release 24 hr 10 mg PO DAILY Qty: 90 3RF Rx Instructions: administer after the same meal each day citalopram 20 mg tablet 20 mg PO DAILY Qty: 90 3RF losartan 50 mg tablet 50 mg PO DAILY Qty: 90 3RF docusate sodium [Colace] 100 mg capsule 100 mg PO BID Qty: 30 0RF acetaminophen [Tylenol] 325 mg capsule 650 mg PO QID PRN (Reason: pain) Qty: 60 0RF Referrals: Rome Cordova DO [Physician] - Liam Wilkins MD [Physician] - Richi Fuentes DO [Primary Care Provider] - Stand Alone Forms: Patient Portal/API/Survey
--- NOTE | 2024-03-13 13:14 | DI.US.S_ITS ---
PROCEDURE: US SCROTUM INDICATIONS: SWELLING 1 WEEK POST BILAT GROIN HERNIA REPAIR, REPORTEDLY IMPROVING. TECHNIQUE: Real-time focused scanning was performed of the inguinal region, with image documentation. COMPARISON: None. FINDINGS: The right testicle measures 2.5 x 2.6 x 3.5 cm and shows no evidence of mass or hyperemia. Complex a vascular material is noted at the right hemiscrotum consistent with postoperative clot. On the left the testicle also is normal in size measuring 2.6 x 3.3 x 3.4 cm and again noted similar to that on the right is presumed postoperative clot. IMPRESSION: No evidence of testicular torsion or mass. Presumed bilateral postoperative peritesticular clot. No hyperemia associated. Dictated by: Samson Sheehan M.D. on 03/13/2024 at 13:58 Approved by: Samson Sheehan M.D. on 03/13/2024 at 14:01
[2024-03-13] MEDS: CEFDINIR 300 MG CAPSULE PO (13:20)
[2024-03-13 14:49] VITALS: BP 145/78; PULSE 77; O2SAT 99
== END 2024-03-13 14:56 | disposition home or self-care (01) ==
PROVIDERS: Emergency Provider Emergency Medicine; Family Provider Family Medicine; PCP Family Medicine
DX: N39.0 Urinary tract infection, site not specified (principal); R50.9 Fever, unspecified
CPT/HCPCS: 76870; 81001; 87077; 87086; 87186; 99283

== ENCOUNTER 2024-03-19 18:15 | Emergency (ER) | payer OTHER, SELFPAY ==
[2024-03-19] VITALS (9 sets, daily range): BP systolic 97–127; BP diastolic 56–75; PULSE 103–125; RESP 16–26; TEMP 37.4–37.7; O2SAT 94–97; BMI 21.4
--- NOTE | 2024-03-19 18:38 | EKG_ITS ---
[facility] [address] [place] [address] Test Date: 2024-03-19 Pat Name: Yordy Zhu Department: [facility] Room: Gender: Male Medical Laboratory Assistant: MUKUL : 1945 Requested By: Order Number: [id number] Reading MD: Steve Vargas MD Measurements Intervals [place] Rate: 106 P: 38 NV: 162 QRS: 30 QRSD: 114 T: -10 QT: 370 QTc: 491 Interpretive Statements Sinus tachycardia Low voltage QRS Incomplete right bundle branch block ST & T wave abnormality, consider inferior ischemia NO PRIOR TRACING Electronically Signed On 03-20-2024 6:50:25 PST by Steve Vargas MD
--- NOTE | 2024-03-19 18:38 | DI.RAD.S_ITS ---
PROCEDURE: XR CHEST 1V INDICATIONS: suspected sepsis TECHNIQUE: One view of the chest was acquired. COMPARISON: [facility], CR, XR CHEST 1V, 12/05/2020, 12:18. FINDINGS: Surgical changes and devices: None. Lungs and pleura: Lungs are clear. No pleural effusions or pneumothorax. Mediastinum: Mediastinal contours appear normal. Heart size is normal. Bones and chest wall: No suspicious bony lesions. Overlying soft tissues appear unremarkable. IMPRESSION: No acute cardiopulmonary abnormality is seen. Dictated by: Lillie Pack M.D. on 03/19/2024 at 19:50 Approved by: Lillie Pack M.D. on 03/19/2024 at 19:54
--- NOTE | 2024-03-19 19:04 | ED.MALEGU ---
HPI - Male Genitourinary General Chief complaint: Urogenital-Male Stated complaint: unable to urinate Time Seen by Provider: 03/19/24 18:43 History of Present Illness HPI Narrative: 78-year-old male presents for inability to urinate. Patient underwent bilateral hernia repair with Dr. Harris on 03/06/2024. Postoperative course complicated by urinary retention and a Link catheter was placed. He states that the catheter was removed at his outpatient general surgery follow up appointment yesterday. He was burning with urination and he was not feel like he was able to empty his bladder. Patient was seen in the emergency department on 03/13 concerned that he had a urinary tract infection. He was discharged on cefdinir. Related Data Home Medications Medication Instructions Recorded Confirmed calcipotriene 0.005 % topical cream 1 applic topical DAILY 02/22/22 03/06/24 Previous Rx's Medication Instructions Recorded alendronate 70 mg tablet 70 mg PO QWEEK #12 tabs 04/12/23 alfuzosin 10 mg tablet,extended 10 mg PO DAILY #90 tabs 04/12/23 release 24 hr citalopram 20 mg tablet 20 mg PO DAILY #90 tabs 04/12/23 losartan 50 mg tablet 50 mg PO DAILY #90 tabs 04/12/23 methocarbamol 750 mg tablet 750 mg PO TID PRN muscle spasm #90 04/12/23 tabs rizatriptan 10 mg disintegrating 10 mg PO Q2H PRN migraine headache 04/12/23 tablet #30 tabs acetaminophen 325 mg capsule 650 mg (2 x 325 mg) PO QID PRN 03/06/24 (Tylenol) pain #60 caps docusate sodium 100 mg capsule 100 mg PO BID #30 caps 03/06/24 (Colace) celecoxib 200 mg capsule (Celebrex) 200 mg PO BID #20 caps 03/12/24 oxycodone 5 mg tablet 5 mg PO Q4-6H PRN pain #14 tabs 03/16/24 levofloxacin 750 mg tablet 750 mg PO Q24H #10 tabs 03/19/24 Allergies Allergy/AdvReac Type Severity Reaction Status Date / Time No Known Drug Allergies Allergy Verified 03/13/24 10:32 Patient History Medical History Encounter for subsequent annual wellness visit in Medicare patient Muscle spasm of back BPH w urinary obs/LUTS Melanoma Elevated PSA Osteoporosis Migraine headache GERD (gastroesophageal reflux disease) Anxiety Hypertension Surgical History History of vasectomy History of prostate biopsy History of circumcision History of hernia repair Family History Mother Cancer Hyperlipidemia Hypertension Migraines Father Cancer Social History marital status: number of children: 2 household members: spouse lives independently: Yes occupational status: previously employed Smoking Status: Never smoker alcohol intake: former substance use type: does not use caffeine: Yes Smoking Status: Never smoker alcohol intake frequency: 0-2 drinks per day Substance Use Type: does not use Exam Initial Vital Signs Initial Vital Signs: Vital Signs Temperature 99.8 F H 03/19/24 18:31 Pulse Rate 125 H 03/19/24 18:31 Respiratory Rate 18 03/19/24 18:31 Blood Pressure 116/56 L 03/19/24 18:31 Pulse Oximetry 96 03/19/24 18:31 Oxygen Delivery Method Room Air 03/19/24 18:31 Const: Awake, alert, no acute distress, nontoxic appearing Cardiac: Tachycardia, regular rhythm RESP: unlabored, clear bilaterally, no wheezing GI: Soft, nontender, surgical wounds appear to be well healing : Microbiology Technician present, large nontender left testicular hematoma present Skin: Warm, Dry, intact, no rashes Neuro: AO x3, CN II-XII grossly intact, moves all extremities Course Orders Ordered: ED Orders 03/19/24 18:38 XR chest 1V Stat EKG-12 Lead Stat RT Consult Eval and Treat NOW 03/19/24 18:52 Urine Culture Stat Urine Microscopic Stat 03/19/24 19:00 Blood Culture Stat 03/19/24 19:10 Complete Blood Count AUTO DIFF Stat Comprehensive Metabolic Panel Stat Lactate (Lactic Acid) Stat Lipase Stat PTT Partial Thromboplastin Amilcar Stat Procalcitonin Stat Prothrombin Time INR Stat Discontinued Medications Acetaminophen (Acetaminophen 325 Mg Tablet) 975 mg PO NOW ONE Stop: 03/19/24 19:53 Last Admin: 03/19/24 20:07 Dose: 975 mg Documented By: MARLEEN Sodium Chloride (Normal Saline 0.9%) 1,000 mls @ 1,000 mls/hr IV BOLUS ONE Stop: 03/19/24 19:37 Last Infusion: 03/19/24 20:36 Dose: Infused Documented By: Admin: 03/19/24 19:35 Dose: 1,000 mls/hr Documented By: MARLEEN Levofloxacin (Levaquin) 750 mg in 150 mls @ 100 mls/hr IV NOW ONE Stop: 03/19/24 20:34 Last Infusion: 03/19/24 21:21 Dose: Infused Documented By: Admin: 03/19/24 19:34 Dose: 100 mls/hr Documented By: MARLEEN Ondansetron HCl (Ondansetron 4 Mg/2 Ml Inj) 4 mg IV NOW PRN PRN Reason: Nausea And Vomiting Ondansetron HCl (Ondansetron 4 Mg Odt) 4 mg SL NOW PRN PRN Reason: Nausea And Vomiting Vital Signs Vital signs: Vital Signs - 8 hr 03/19/24 18:31 03/19/24 19:29 03/19/24 19:30 Temperature 99.8 F H Pulse Rate 125 H 108 H Respiratory Rate 18 23 Blood Pressure 116/56 L 123/64 Pulse Oximetry 96 96 Oxygen Delivery Method Room Air 03/19/24 19:30 03/19/24 20:00 03/19/24 20:00 Temperature Pulse Rate 103 H 104 H Respiratory Rate 21 Blood Pressure 127/75 Pulse Oximetry 97 95 Oxygen Delivery Method 03/19/24 20:30 03/19/24 20:30 03/19/24 21:00 Temperature Pulse Rate 105 H 110 H Respiratory Rate Blood Pressure 115/72 Pulse Oximetry 94 95 Oxygen Delivery Method Room Air Room Air 03/19/24 21:00 03/19/24 21:22 03/19/24 21:30 Temperature 99.8 F H Pulse Rate 104 H Respiratory Rate 26 H Blood Pressure 103/64 Pulse Oximetry 95 Oxygen Delivery Method Room Air 03/19/24 21:30 03/19/24 22:22 Temperature 99.4 F Pulse Rate 103 H Respiratory Rate 16 Blood Pressure 97/63 102/59 L Pulse Oximetry 95 Oxygen Delivery Method Room Air MDM - Male Genitourinary Differential Diagnosis Differential diagnosis: Likely urinary tract infection, prostatitis and acute retention of urine Lab Data 03/19/24 19:10 03/19/24 19:10 Labs: Lab Results 03/19/24 03/19/24 Range/Units 18:52 19:10 WBC 26.2 H (4.5-11.0) X10^3/uL RBC 3.77 L (4.5-5.9) X10^6/uL Hgb 11.8 L (13.5-17.5) g/dL Hct 35.4 L (41-53) % MCV 93.8 (80-100) fL MCH 31.4 (26-34) PG MCHC 33.5 (30-36) % RDW 12.8 (11.6-14.8) % Plt Count 378 (150-400) X10^3/uL Neut % (Auto) Not Reportable Lymph % (Auto) Not Reportable Jackson % (Auto) Not Reportable Eos % (Auto) Not Reportable Baso % (Auto) Not Reportable Lymph # (Auto) Not Reportable Jackson # (Auto) Not Reportable Baso # (Auto) Not Reportable Total Counted 100 Seg Neutrophils % 77.0 H (38-70) % Band Neutrophils % 12.0 H (3-7) % Lymphocytes % (Manual) 4.0 L (25-45) % Monocytes % (Manual) 7.0 (2-11) % Neutrophils # (Manual) 56322 H (5837-6965) /uL RBC Morphology Normal morphology PT 13.3 H (9.4-12.5) SECONDS INR 1.2 (0.9-1.3) APTT 35 (25.1-36.5) SECONDS Sodium 132 L (137-145) mmol/L Potassium 4.0 (3.4-5.1) mmol/L Chloride 102 (98-107) mmol/L Carbon Dioxide 23 (22-32) mmol/L BUN 17 (9-20) mg/dL Creatinine 1.07 (0.66-1.25) mg/dL Estimated GFR > 60 (>60) mL/min BUN/Creatinine Ratio 15.9 (6-22) Glucose 120 H (80-110) mg/dL Lactate 1.1 (0.7-2.1) mmol/L Calcium 9.2 (8.4-10.2) mg/dL Total Bilirubin 0.8 (0.2-1.3) mg/dL AST 50 (17-59) IU/L ALT 38 (<50) IU/L Alkaline Phosphatase 80 (38-126) U/L Total Protein 7.5 (6.3-8.2) g/dL Albumin 4.1 (3.5-5.0) g/dL Globulin 3.4 (1.7-4.1) g/dL Albumin/Globulin Ratio 1.2 (1.0-2.8) Lipase 42 (23-300) U/L Procalcitonin 0.685 H (<0.5) ng/mL Urine RBC 1-5/hpf (0-5/HPF) Urine WBC 10-30/hpf H (0-5/HPF) Ur Squamous Epith Cells 0-1 /hpf (0-5/HPF) Urine Bacteria Many (>30) H (None) Ur Culture Indicated? Specimen cultured Vol Urine Centrifuged 10ml (spun) Urine Dip Bedside Urine Glucose Negative Bedside Urine Bilirubin - Negative Bedside Urine Ketone +/- 5 Urine Specific Normal 1.010 Bedside Urine Occult Blood + Bedside Urine pH 7.5 Bedside Urine Protein +/- 15 Bedside Urine Urobilinogen - Negative Bedside Urine Nitrite + Positive Bedside Urine Leukocytes + 70 Esterase MDM Narrative Medical decision making narrative: Patient presenting for inability to urinate. Currently taking cefdinir for urinary tract infection. Patient noted to be tachycardic in triage and sepsis order set initiated by triage nurses. Bedside bladder scan shows that patient was actually not retaining urine. Review of records shows that patient had Pseudomonas in his urine. The Pseudomonas seems to be sensitive to cefepime and ceftazidime, however cefdinir we will not cover Pseudomonas. IV Levaquin ordered since the culture indicates Pseudomonas is sensitive to this drug. Laboratory work shows WBC count 26.2, hemoglobin 11.8, platelet count 378, sodium 132, potassium 4.0, creatinine 1.07, lactic acid 1.1, procalcitonin 0.685. Patient's heart rate decreased after receiving IV fluids. Patient reassessed, resting in bed. Patient's overall physical appearance and clinical presentation seems much better than wbc count and initial heart rate would assume. Extensive conversation had with the patient and his spouse at bedside. Patient offered admission due to his elevated white blood cell count and the Pseudomonas in his urine as well as mildly elevated procalcitonin. Patient states that he does not want to stay in the hospital and would prefer to go home if at all possible. He has received 1 dose of levofloxacin and with appropriate sensitivity antibiotics he should improve clinically. Prescription sent to pharmacy of choice. Strict ED return precautions discussed. Discharge Plan Departure Patient Disposition: Home Clinical Impression: Urinary tract infection Instructions: DI for Urinary Tract Infection (UTI) Activity Restrictions/Additional Instructions: Your laboratory work today shows that you have a high white blood cell count. Your urine shows evidence of infection, which is likely the source of this elevated white blood cell count. After talking with you you would like to go home. Based on your previous urine culture results the bacteria is susceptible to levofloxacin. You received a dose of levofloxacin here in the emergency department and a prescription has been sent to your pharmacy. Finish all of the medications even if you feel improved. Prescriptions: New levofloxacin 750 mg tablet 750 mg PO Q24H Qty: 10 0RF No Action celecoxib [Celebrex] 200 mg capsule 200 mg PO BID Qty: 20 0RF oxycodone 5 mg tablet 5 mg PO Q4-6H PRN (Reason: pain) Qty: 14 0RF Rx Instructions: 1-2 tabs every 4-6 hrs as needed for pain calcipotriene 0.005 % cream 1 applic topical DAILY Rx Instructions: rub in gently and completely methocarbamol 750 mg tablet 750 mg PO TID PRN (Reason: muscle spasm) Qty: 90 5RF rizatriptan 10 mg tablet,disintegrating 10 mg PO Q2H MDD 20mg PRN (Reason: migraine headache) Qty: 30 11RF alendronate 70 mg tablet 70 mg PO QWEEK Qty: 12 3RF alfuzosin 10 mg tablet extended release 24 hr 10 mg PO DAILY Qty: 90 3RF Rx Instructions: administer after the same meal each day citalopram 20 mg tablet 20 mg PO DAILY Qty: 90 3RF losartan 50 mg tablet 50 mg PO DAILY Qty: 90 3RF docusate sodium [Colace] 100 mg capsule 100 mg PO BID Qty: 30 0RF acetaminophen [Tylenol] 325 mg capsule 650 mg PO QID PRN (Reason: pain) Qty: 60 0RF Referrals: Richi Fuentes DO [Primary Care Provider] - Stand Alone Forms: Patient Portal/API/Survey
[2024-03-19 19:31] LABS: Hematocrit 35.4 % (41-53); Hemoglobin 11.8 g/dL (13.5-17.5); Mean Corpuscular HGB Conc 33.5 % (30-36); Mean Corpuscular Hemoglobin 31.4 PG (26-34); Mean Corpuscular Volume 93.8 fL (80-100); Platelet Count 378 X10^3/uL (150-400); Red Blood Cell Count 3.77 X10^6/uL (4.5-5.9); Red Cell Distribution Width 12.8 % (11.6-14.8); White Blood Cell Count 26.2 X10^3/uL (4.5-11.0)
[2024-03-19] MEDS: levoFLOXacin 750 MG/150 ML PIGGYBACK 100 MG IV (19:34)
[2024-03-19 19:35] LABS: INR 1.2 (0.9-1.3); Prothrombin Time 13.3 SECONDS (9.4-12.5)
[2024-03-19] MEDS: SODIUM CHLORIDE 0.9% 1,000 ML 1000 ML IV (19:35)
[2024-03-19 19:36] LABS: Add Manual Diff / Slide Review YES
[2024-03-19 19:37] LABS: PTT Partial Thromboplastin Tim 35 SECONDS (25.1-36.5)
--- NOTE | 2024-03-19 19:37 | PC.NURSE ---
Pt states last took tylenol at 0900. C/O dizziness/ near syncope with ambulation. He is alert and oriented. Denies abdominal pain. Reporting groin pain and bilateral testicular swelling and pain. Left testicle worse than right. Left testicle warm, rigid, swollen.
[2024-03-19 19:40] LABS: Bacteria Urine Many (>30); Culture Indicated Urine Specimen Cultured; RBC Urine 1-5/HPF (0-5/HPF); Squamous Epithelial Cell Urine 0-1 /HPF (0-5/HPF); Urine Volume 10mL (spun); WBC Urine 10-30/HPF (0-5/HPF)
[2024-03-19 19:43] LABS: Lactate (Lactic Acid) 1.1 mmol/L (0.7-2.1)
[2024-03-19 19:46] LABS: Alanine Aminotransferase 38 IU/L (<50); Albumin 4.1 g/dL (3.5-5.0); Albumin Globulin Ratio 1.2 (1.0-2.8); Alkaline Phosphatase 80 U/L (38-126); Aspartate Aminotransferase 50 IU/L (17-59); BUN Creatinine Ratio 15.9 (6-22); Bilirubin Total 0.8 mg/dL (0.2-1.3); Blood Urea Nitrogen 17 mg/dL (9-20); Calcium 9.2 mg/dL (8.4-10.2); Carbon Dioxide 23 mmol/L (22-32); Chloride 102 mmol/L (98-107); Estimated Glomerular Filt Rate > 60 mL/min (>60); Globulin 3.4 g/dL (1.7-4.1); Glucose 120 mg/dL (80-110); HEMOLYSIS 21 (0-50); Lipase 42 U/L (23-300); Sodium 132 mmol/L (137-145); Total Protein 7.5 g/dL (6.3-8.2)
[2024-03-19 19:49] LABS: Neutrophils Absolute Manual 23318 /uL (3000-5900); RBC Morphology Normal Morphology; Total Cells Counted 100
[2024-03-19 20:00] LABS: Procalcitonin 0.685 ng/mL (<0.5)
[2024-03-19] MEDS: ACETAMINOPHEN 325 MG TABLET 975 MG PO (20:07)
== END 2024-03-19 22:23 | disposition home or self-care (01) ==
PROVIDERS: Emergency Provider Emergency Medicine; Family Provider Family Medicine; PCP Family Medicine
DX: N39.0 Urinary tract infection, site not specified (principal); R00.0 Tachycardia, unspecified
CPT/HCPCS: 36415; 51798; 71045; 80053; 81003; 81015; 83605; 83690; 84145; 85007; 85025; 85610; 85730; 87040; 87077; 87086; 87186; 93005; 99284; J1956

== ENCOUNTER 2024-03-21 08:42 | Inpatient (IN) | payer OTHER, SELFPAY ==
[2024-03-21] VITALS (31 sets, daily range): BP systolic 104–170; BP diastolic 57–132; PULSE 70–99; RESP 12–26; TEMP 36.4–36.8; O2SAT 87–100; BMI 21.6
--- NOTE | 2024-03-21 09:02 | ED_ITS ---
HPI - General Adult General Chief complaint: Urogenital-Male Stated complaint: nausea, diff urinating Time Seen by Provider: 03/21/24 09:02 History of Present Illness HPI narrative: 78-year-old gentleman with bilateral laparoscopic assisted inguinal hernia repair at subsequent large scrotal hematoma, acute urinary retention, Link catheter placed, UTI with Pseudomonas developed hit initially been started on cefdinir, cultures came back and he was switched to levofloxacin. He was seen in the emergency department on the 3rd given IV Levaquin, significant leukocytosis was noted but he did not appear septic and with shared decision- making he was discharged home with oral Levaquin. He did take a dose of his Levaquin this morning. He comes in today complaining of urinary retention for at least 10 hours, waxing and waning fevers over the last 48 hours, increasing confusion, general malaise, weakness and overall feeling worse. He is nauseated but not vomiting. He has not been able to eat but has been forcing himself to drink sips of water. He has not complaining of chest pain palpitations or dyspnea. No headache or acute neurologic changes Related Data Home Medications Medication Instructions Recorded Confirmed calcipotriene 0.005 % topical cream 1 applic topical DAILY 02/22/22 03/06/24 Previous Rx's Medication Instructions Recorded alendronate 70 mg tablet 70 mg PO QWEEK #12 tabs 04/12/23 alfuzosin 10 mg tablet,extended 10 mg PO DAILY #90 tabs 04/12/23 release 24 hr citalopram 20 mg tablet 20 mg PO DAILY #90 tabs 04/12/23 losartan 50 mg tablet 50 mg PO DAILY #90 tabs 04/12/23 methocarbamol 750 mg tablet 750 mg PO TID PRN muscle spasm #90 04/12/23 tabs rizatriptan 10 mg disintegrating 10 mg PO Q2H PRN migraine headache 04/12/23 tablet #30 tabs acetaminophen 325 mg capsule 650 mg (2 x 325 mg) PO QID PRN 03/06/24 (Tylenol) pain #60 caps docusate sodium 100 mg capsule 100 mg PO BID #30 caps 03/06/24 (Colace) celecoxib 200 mg capsule (Celebrex) 200 mg PO BID #20 caps 03/12/24 oxycodone 5 mg tablet 5 mg PO Q4-6H PRN pain #14 tabs 03/16/24 levofloxacin 750 mg tablet 750 mg PO Q24H #10 tabs 03/19/24 Allergies Allergy/AdvReac Type Severity Reaction Status Date / Time No Known Drug Allergies Allergy Verified 03/21/24 09:11 Review of Systems Review of Systems Narrative: Pertinent positive and negative findings as per HPI Patient History Medical History Encounter for subsequent annual wellness visit in Medicare patient Muscle spasm of back BPH w urinary obs/LUTS Melanoma Elevated PSA Osteoporosis Migraine headache GERD (gastroesophageal reflux disease) Anxiety Hypertension Surgical History History of vasectomy History of prostate biopsy History of circumcision History of hernia repair Family History Mother Cancer Hyperlipidemia Hypertension Migraines Father Cancer Social History marital status: number of children: 2 household members: spouse lives independently: Yes occupational status: previously employed Smoking Status: Never smoker alcohol intake: former substance use type: does not use caffeine: Yes Smoking Status: Never smoker alcohol intake frequency: 0-2 drinks per day Exam Initial Vital Signs Initial Vital Signs: Vital Signs Pulse Rate 82 03/21/24 09:02 Pulse Oximetry 99 03/21/24 09:02 General: Ill-appearing but not significantly toxic. Pale, weak, is able to cooperate completely in speak in full sentences HEENT: Moist mucous membranes, normal sclera with reactive pupils, Neck: No JVD, no cervical adenopathy Respiratory: Lungs are clear to auscultation, no wheezing no rales no rhonchi. Full and symmetrical air movement Cardiac: Regular rate and rhythm no murmurs no bruits Abdomen: Soft, mild tenderness with bladder dome appreciated just coming out of the pelvis. Trocar sites over the abdomen are healing appropriately. Inguinal canal surgical site are nontender, no erythema. Genital: He has large mass in the left scrotum with continued bruising down the left side of his penis. Previously had had large scrotal hematoma in the right side seems to have completely resolved. The mass in the left side is nontender and 5 x 7 cm. Skin: Pale, warm to the touch, no rashes Neurologic: Globally weak but otherwise Grossly neurologically intact with no obvious asymmetries or abnormalities Extremities: No trauma, well perfused Psych: Cooperative, slightly cognitively slowed Course Orders Ordered: ED Orders 03/21/24 09:20 US scrotum Stat 03/21/24 09:30 Urinalysis and Microscopic Stat Urine Culture Stat 03/21/24 09:35 Complete Blood Count AUTO DIFF Stat Comprehensive Metabolic Panel Stat Lactate (Lactic Acid) Stat 03/21/24 10:09 Blood Culture Stat 03/21/24 11:29 CT abdomen pelvis w con Stat 03/21/24 11:31 Consult to Urology Stat Hydromorphone HCl (Hydromorphone 0.5 Mg Inj) 0.5 mg IV Q15MIN PRN PRN Reason: Pain, Discontinued Medications Sodium Chloride (Normal Saline 0.9%) 1,000 mls @ 1,000 mls/hr IV BOLUS ONE Stop: 03/21/24 10:19 Last Infusion: 03/21/24 11:18 Dose: Infused Documented By: Admin: 03/21/24 09:42 Dose: 1,000 mls/hr Documented By: ANURADHA Piperacillin Sod/Tazobactam (Sod 4.5 gm/ Sodium Chloride) 100 mls @ 200 mls/hr IV NOW ONE Stop: 03/21/24 09:24 Last Infusion: 03/21/24 11:18 Dose: Infused Documented By: Admin: 03/21/24 10:12 Dose: 200 mls/hr Documented By: SHERIF Lidocaine HCl (Lidocaine 2% (Glydo) 6 Ml Gel) 6 ml TOP NOW ONE Stop: 03/21/24 09:05 Last Admin: 03/21/24 09:42 Dose: 6 ml Documented By: ANURADHA Ondansetron HCl (Ondansetron 4 Mg/2 Ml Inj) 4 mg IV NOW ONE Stop: 03/21/24 09:21 Last Admin: 03/21/24 09:42 Dose: 4 mg Documented By: ANURADHA Vital Signs Vital signs: Vital Signs - 8 hr 03/21/24 09:02 03/21/24 09:07 03/21/24 09:30 Temperature 97.5 F L Pulse Rate 82 99 H 83 Respiratory Rate 14 Blood Pressure 138/73 Pulse Oximetry 99 98 99 Oxygen Delivery Method Room Air 03/21/24 09:37 03/21/24 09:37 03/21/24 10:00 Temperature Pulse Rate 82 Respiratory Rate Blood Pressure 128/74 104/63 Pulse Oximetry 99 Oxygen Delivery Method Room Air 03/21/24 10:00 03/21/24 10:30 03/21/24 10:30 Temperature Pulse Rate 85 87 Respiratory Rate Blood Pressure 130/72 Pulse Oximetry 98 97 Oxygen Delivery Method Room Air 03/21/24 11:00 03/21/24 11:00 03/21/24 11:30 Temperature Pulse Rate 85 83 Respiratory Rate Blood Pressure 119/75 Pulse Oximetry 95 94 Oxygen Delivery Method 03/21/24 11:30 03/21/24 11:46 03/21/24 11:46 Temperature Pulse Rate 94 H Respiratory Rate Blood Pressure 108/57 L 140/72 Pulse Oximetry 98 Oxygen Delivery Method Medical Decision Making Lab Data Lab results narrative: Urinalysis collected 03/19 Urine Culture Final 03/21/24-828 Organism 1 Pseudomonas aeruginosa [place] Count >100,000 CFU/ml Action to follow No Further Workup 1. Pseudomonas aeruginosa M.I.C. RX --------- --- * Cefepime <=1 S * Ceftazidime 2 S * Ciprofloxacin <=0.25 S * Imipenem 1 S * Levofloxacin 0.5 S * Tobramycin <=1 S * Piperacillin/Tazobactam <=4 S 03/21/24 09:35 03/21/24 09:35 Labs: Lab Results 03/21/24 03/21/24 Range/Units 09:30 09:35 WBC 24.1 H (4.5-11.0) X10^3/uL RBC 3.44 L (4.5-5.9) X10^6/uL Hgb 10.7 L (13.5-17.5) g/dL Hct 32.3 L (41-53) % MCV 93.7 (80-100) fL MCH 31.2 (26-34) PG MCHC 33.3 (30-36) % RDW 13.1 (11.6-14.8) % Plt Count 368 (150-400) X10^3/uL Neut % (Auto) 92.9 H (50-75) % Lymph % (Auto) 2.4 L (25-40) % [place] % (Auto) 4.4 (3-14) % Eos % (Auto) 0.2 L (2-4) % Baso % (Auto) 0.1 (0-2) % Neut # (Auto) 71295 H (9534-1177) /uL Lymph # (Auto) 600 L (4148-7333) /uL [place] # (Auto) 1000 H (0-900) /uL Eos # (Auto) 0 (0-450) /uL Baso # (Auto) 0 (0-100) /uL Sodium 131 L (137-145) mmol/L Potassium 3.8 (3.4-5.1) mmol/L Chloride 101 (98-107) mmol/L Carbon Dioxide 25 (22-32) mmol/L BUN 19 (9-20) mg/dL Creatinine 1.01 (0.66-1.25) mg/dL Estimated GFR > 60 (>60) mL/min BUN/Creatinine Ratio 18.8 (6-22) Glucose 109 (80-110) mg/dL Lactate 1.0 (0.7-2.1) mmol/L Calcium 8.4 (8.4-10.2) mg/dL Total Bilirubin 0.7 (0.2-1.3) mg/dL AST 31 (17-59) IU/L ALT 26 (<50) IU/L Alkaline Phosphatase 82 (38-126) U/L Total Protein 6.5 (6.3-8.2) g/dL Albumin 3.5 (3.5-5.0) g/dL Globulin 3.0 (1.7-4.1) g/dL Albumin/Globulin Ratio 1.2 (1.0-2.8) Urine Color Yellow Urine Appearance Clear Urine pH 5.5 (4.5-8.0) Ur Specific [place] 1.020 (1.000-1.035) Urine Protein Negative (Negative) Urine Glucose (UA) Negative (Negative) g/dL Urine Ketones Trace H (NEGATIVE) Urine Occult Blood Negative (Negative) Urine Nitrate Negative (Negative) Urine Bilirubin Negative (NEGATIVE) Urine Urobilinogen 0.2 (0.2) E.U./dL Ur Leukocyte Esterase Negative (NEGATIVE) Urine RBC 0-1/hpf (0-5/HPF) Urine WBC 5-10/hpf H (0-5/HPF) Ur Squamous Epith Cells 0-1 /hpf (0-5/HPF) Urine Bacteria Occasional (0-1) D (None) Ur Culture Indicated? Specimen cultured Vol Urine Centrifuged 10ml (spun) Imaging Data CT scan - abdomen/pelvis: Radiologist's Impression: PROCEDURE: CT ABDOMEN PELVIS W CON INDICATIONS: leukocytosis, SIRS TECHNIQUE: After the administration of intravenous contrast, axial sections acquired from the lung bases to the pubic symphysis. Coronal and sagittal reformats were performed. For radiation dose reduction, the following was used: automated exposure control, adjustment of mA and/or kV according to patient size. COMPARISON: [facility], , US SCROTUM, 03/21/2024, 9:53. FINDINGS: Image quality: Diagnostic. Lower Chest: No significant findings. ABDOMEN: Liver: No solid mass. Gallbladder: No radiopaque gallstones or wall thickening. Biliary ducts: No biliary dilation. Pancreas: No ductal dilation. Spleen: Size is within normal limits. Adrenal Glands: No adrenal nodules. Kidneys and Ureters: No hydronephrosis. No solid mass. No complex renal cystic lesion which requires follow up. Stomach and Bowel: Normal colonic caliber, without significant wall thickening. Mild wall thickening of the descending colon. Extensive diverticular disease. Peritoneum: No abnormal intraperitoneal fluid. No free air. Fat stranding along the left pericolic gutter, with small amount of fluid present. Ventral Wall: No significant ventral hernia. Abdominal Nodes: No retroperitoneal or mesenteric adenopathy by size criteria. Vessels: Aorta and inferior vena cava are normal in size. PELVIS: Pelvic Organs: Abnormal enhancement the left testicle, with generalized edema within the left spermatic cord. Bilateral moderate testicular hydroceles. Prostatomegaly. Bladder: Decompressed around a Link catheter. Pelvic Nodes: No enlarged lymph nodes. Miscellaneous: Moderate inguinal hernias containing fluid. Bones: No aggressive osseous abnormality. Osteoporosis by Hounsfield units criteria. Chronic appearing compression deformity the L4, L3 and L2 vertebral bodies. No endplate retropulsion. IMPRESSION: Abnormal enhancement of the left testicle, concerning for infarct. Inflammatory changes extend into the epididymis, which could be related to this process, alternatively could be related to a urinary tract infection. Fat stranding and trace free fluid along the left pericolic gutter. Diverticula are present, with minimal wall thickening of the adjacent colon. Findings could represent a resolving case of diverticulitis. Other chronic findings as above. Dictated by: Lc Armstrong M.D. on 03/21/2024 at 11:55 scrotal ultrasound: Radiologist's Impression: PROCEDURE: US SCROTUM INDICATIONS: post op mass TECHNIQUE: Real-time scanning was performed of the scrotum and testicles, with image documentation. Color and pulse Doppler interrogation was performed of both testicles. COMPARISON: [facility], [place], US SCROTUM, 03/13/2024, 12:27. FINDINGS: Right: Testicle is normal in size at 3.8 x 2.5 x 2.9 cm, and homogenous in echotexture. Epididymis is normal in overall size and morphology. Moderate hydrocele. No varicoceles. Overlying scrotal skin is normal in thickness. Left: Testicle is normal in size at 3.8 x 2.2 x 3.7 cm, and homogeneous in echotexture. Epididymis is normal in overall size and morphology. No hydrocele or varicoceles. Overlying scrotal skin is normal in thickness. Septated fluid collection surrounding the spermatic cord. Doppler: Color and pulse Doppler demonstrate no visualized arterial or venous flow in the left testicle. IMPRESSION: No visualized arterial and venous slow in the left testicle highly suspicious for torsion possibly within the cord. Dictated by: Hallie Anna M.D. on 03/21/2024 at 11:11 [facility] Narrative Medical decision making narrative: CC: Feeling worse with known Pseudomonas urinary tract infection and now acute urinary retention Complicating co-morbidities: Large scrotal hematoma following laparoscopically assisted bilateral inguinal hernia repair on March 05, acute urinary retention postoperatively, subsequent Pseudomonas urinary infection currently on the [facility] of [facility] Data collected from: patient, Medical records reviewed: Surgical notes, recurrent ER visits on the and the for similar complaints for reviewed Differential considered: Sepsis, UTI with acute retention, septic hematoma in the groin Exam documented above, pertinent findings include: Pale, weak, no localizing tenderness, large presumably consolidated hematoma in the scrotum that is nontender, there is no scrotal or inguinal erythema Lab Test results independently reviewed as above. Pertinent findings: CBC shows continued leukocytosis with white count at 24.1. 93% neutrophils slight drop to hemoglobin from 11.82 days ago to 10.7 today Chemistries are reassuring Lactic acid is not elevated Imaging studies independently reviewed: Ultrasound shows diminished to almost no flow to the left testicle with concerns for testicular necrosis. There is a large partially consolidated hematoma surrounding the spermatic cord which seems to be causing the problem. CT scan of the abdomen and pelvis confirms the concern for the testicle. Also mentioned is fat stranding and trace free fluid along the left pericolic gutter. Diverticula present with minimal wall thickening of the adjacent colon suggested this could represent resolving case of diverticulitis. At this point he is on antibiotics that will cover that but diverticulitis is not consistent with his physical evaluation. Consultations: Dr Wilkins, urology. Notes testicular necrosis/torsion can cause the leukocytosis notes. Will consult as in patient. Requested CT scan for more complete evaluation, this is ordered Treatments:fluid, pip-tazo Discussion: 78-year-old gentleman with large hematoma in his scrotum after laparoscopically assisted bilateral inguinal hernia repair on the . He has had recurrent problems with urinary retention, noted to have a Pseudomonas urinary tract infection and getting worse over the last 48 hours despite seemingly appropriate antibiotics. On exam he has a large mass in the left side of his scrotum that ultrasound suggests is necrotic testicle and a large blood clot causing restriction to the spermatic cord. No evidence of abscess. Dr. Wilkins did note that necrotic testicle can cause significant elevation of white count and can also cause hot flashes which may explain his symptoms this weekend. He will see the patient in the hospital to discuss options and decide if surgical intervention is required. Care is reviewed with Dr. Ramos who will admit the patient. Findings reviewed with the patient and his who understands need for hospital admission, surgical consultation and continued antibiotics. Blood pressures responded nicely to a L of fluid, lactic acid is not elevated, he is afebrile he has not meeting septic criteria at this time. Antibiotics were changed from Levaquin to Zosyn based on urine culture sensitivities Discharge Plan Departure Patient Disposition: Admitted As Inpatient Clinical Impression: Testicular necrosis, Hematoma of scrotum Leukocytosis Qualifiers: Leukocytosis type: unspecified Qualified Code(s): D72.829 - Elevated white blood cell count, unspecified Admit Date/Time: 03/21/24 12:33 Admit Provider: Zaid Ramos
--- NOTE | 2024-03-21 09:20 | DI.US.S_ITS ---
PROCEDURE: US SCROTUM INDICATIONS: post op mass TECHNIQUE: Real-time scanning was performed of the scrotum and testicles, with image documentation. Color and pulse Doppler interrogation was performed of both testicles. COMPARISON: [facility], , US SCROTUM, 03/13/2024, 12:27. FINDINGS: Right: Testicle is normal in size at 3.8 x 2.5 x 2.9 cm, and homogenous in echotexture. Epididymis is normal in overall size and morphology. Moderate hydrocele. No varicoceles. Overlying scrotal skin is normal in thickness. Left: Testicle is normal in size at 3.8 x 2.2 x 3.7 cm, and homogeneous in echotexture. Epididymis is normal in overall size and morphology. No hydrocele or varicoceles. Overlying scrotal skin is normal in thickness. Septated fluid collection surrounding the spermatic cord. Doppler: Color and pulse Doppler demonstrate no visualized arterial or venous flow in the left testicle. IMPRESSION: No visualized arterial and venous slow in the left testicle highly suspicious for torsion possibly within the cord. Dictated by: Hallie Anna M.D. on 03/21/2024 at 11:11 Approved by: Hallie Anna M.D. on 03/21/2024 at 11:14
[2024-03-21] MEDS: ONDANSETRON 4 MG/2 ML INJ IV ×2 (09:42→22:18)
[2024-03-21] MEDS: LIDOCAINE 2% (GLYDO) 6 ML GEL TOP (09:42)
[2024-03-21] MEDS: SODIUM CHLORIDE 0.9% 1,000 ML 1000 ML IV (09:42)
[2024-03-21 09:47] LABS: Add Manual Diff / Slide Review NO; Basophils Absolute Auto 0 /uL (0-100); Basophils Percent Auto 0.1 % (0-2); Eosinophils Absolute Auto 0 /uL (0-450); Eosinophils Percent Auto 0.2 % (2-4); Hematocrit 32.3 % (41-53); Hemoglobin 10.7 g/dL (13.5-17.5); Lymphocytes Absolute Auto 600 /uL (1100-4500); Lymphocytes Percent Auto 2.4 % (25-40); Mean Corpuscular HGB Conc 33.3 % (30-36); Mean Corpuscular Hemoglobin 31.2 PG (26-34); Mean Corpuscular Volume 93.7 fL (80-100); Monocytes Absolute Auto 1000 /uL (0-900); Monocytes Percent Auto 4.4 % (3-14); Neutrophils Absolute Auto 22300 /uL (1500-7000); Neutrophils Percent Auto 92.9 % (50-75); Platelet Count 368 X10^3/uL (150-400); Red Blood Cell Count 3.44 X10^6/uL (4.5-5.9); Red Cell Distribution Width 13.1 % (11.6-14.8); White Blood Cell Count 24.1 X10^3/uL (4.5-11.0)
--- NOTE | 2024-03-21 10:03 | PC.NURSE ---
Unable to obtain 2nd IV, lab to come draw 2nd blood culture. Pt currently denies testicular pain. He has penis pain with urination however cannot urinate since last night. ecchymosis present bilateral testicles and head of penis. Catheter placed with over 600cc urine drained. Pt reports relieved abdominal pain. He is still nauseated.
[2024-03-21] MEDS: PIPERACILLIN/TAZO 4.5 GM in SODIUM CHLORIDE 0.9% 100 ML IV (10:12)
--- NOTE | 2024-03-21 10:12 | PC.NURSE ---
Lab obtained 2nd blood culture, IV abx started after 2nd culture.
[2024-03-21 10:19] LABS: Appearance Urine UA CLEAR; Bilirubin Urine UA NEGATIVE (NEGATIVE); Color Urine UA YELLOW; Glucose Urine UA NEGATIVE (Negative); Ketones Urine UA TRACE (NEGATIVE); Leukocyte Esterase Urine UA NEGATIVE (NEGATIVE); Nitrite Urine UA NEGATIVE (Negative); Occult Blood Urine UA NEGATIVE (Negative); Protein Urine UA NEGATIVE (Negative); Urobilinogen Urine UA 0.2 E.U./dL (0.2); pH Urine UA 5.5 (4.5-8.0)
[2024-03-21 10:52] LABS: RBC Urine 0-1/HPF (0-5/HPF); Urine Volume 10mL (spun); WBC Urine 5-10/HPF (0-5/HPF)
[2024-03-21 10:53] LABS: Bacteria Urine Occasional (0-1); Culture Indicated Urine Specimen Cultured; Squamous Epithelial Cell Urine 0-1 /HPF (0-5/HPF)
[2024-03-21 11:24] LABS: Alanine Aminotransferase 26 IU/L (<50); Albumin 3.5 g/dL (3.5-5.0); Albumin Globulin Ratio 1.2 (1.0-2.8); Alkaline Phosphatase 82 U/L (38-126); Aspartate Aminotransferase 31 IU/L (17-59); BUN Creatinine Ratio 18.8 (6-22); Bilirubin Total 0.7 mg/dL (0.2-1.3); Blood Urea Nitrogen 19 mg/dL (9-20); Calcium 8.4 mg/dL (8.4-10.2); Carbon Dioxide 25 mmol/L (22-32); Chloride 101 mmol/L (98-107); Estimated Glomerular Filt Rate > 60 mL/min (>60); Glucose 109 mg/dL (80-110); HEMOLYSIS < 15 (0-50); Potassium 3.8 mmol/L (3.4-5.1); Sodium 131 mmol/L (137-145); Total Protein 6.5 g/dL (6.3-8.2)
--- NOTE | 2024-03-21 11:29 | DI.CT.S_ITS ---
PROCEDURE: CT ABDOMEN PELVIS W CON INDICATIONS: leukocytosis, SIRS TECHNIQUE: After the administration of intravenous contrast, axial sections acquired from the lung bases to the pubic symphysis. Coronal and sagittal reformats were performed. For radiation dose reduction, the following was used: automated exposure control, adjustment of mA and/or kV according to patient size. COMPARISON: [facility], , US SCROTUM, 03/21/2024, 9:53. FINDINGS: Image quality: Diagnostic. Lower Chest: No significant findings. ABDOMEN: Liver: No solid mass. Gallbladder: No radiopaque gallstones or wall thickening. Biliary ducts: No biliary dilation. Pancreas: No ductal dilation. Spleen: Size is within normal limits. Adrenal Glands: No adrenal nodules. Kidneys and Ureters: No hydronephrosis. No solid mass. No complex renal cystic lesion which requires follow up. Stomach and Bowel: Normal colonic caliber, without significant wall thickening. Mild wall thickening of the descending colon. Extensive diverticular disease. Peritoneum: No abnormal intraperitoneal fluid. No free air. Fat stranding along the left pericolic gutter, with small amount of fluid present. Ventral Wall: No significant ventral hernia. Abdominal Nodes: No retroperitoneal or mesenteric adenopathy by size criteria. Vessels: Aorta and inferior vena cava are normal in size. PELVIS: Pelvic Organs: Abnormal enhancement the left testicle, with generalized edema within the left spermatic cord. Bilateral moderate testicular hydroceles. Prostatomegaly. Bladder: Decompressed around a Link catheter. Pelvic Nodes: No enlarged lymph nodes. Miscellaneous: Moderate inguinal hernias containing fluid. Bones: No aggressive osseous abnormality. Osteoporosis by Hounsfield units criteria. Chronic appearing compression deformity the L4, L3 and L2 vertebral bodies. No endplate retropulsion. IMPRESSION: Abnormal enhancement of the left testicle, concerning for infarct. Inflammatory changes extend into the epididymis, which could be related to this process, alternatively could be related to a urinary tract infection. Fat stranding and trace free fluid along the left pericolic gutter. Diverticula are present, with minimal wall thickening of the adjacent colon. Findings could represent a resolving case of diverticulitis. Other chronic findings as above. Dictated by: Lc Armstrong M.D. on 03/21/2024 at 11:55 Approved by: Lc Armstrong M.D. on 03/21/2024 at 12:03
[2024-03-21] MEDS: SODIUM CHLORIDE 0.45% 1,000 ML 100 ML IV (14:07)
--- NOTE | 2024-03-21 14:08 | P.HP_ITS ---
History of Present Illness History of Present Illness Date Patient Seen: 03/21/24 Time Patient Seen: 14:09 Chief complaint: nausea, diff urinating Narrative: The patient was a 78-year-old was status post a bilateral laparoscopic inguinal hernia repair on March 06. The patient developed a scrotal hematoma and retention after which required placement of a Link catheter. He then developed a UTI with Pseudomonas he was initially treated with cefdinir and then levofloxacin. In the emergency department he was seen on March 19 and given IV Levaquin and a significant white count was noted. The patient then went home with oral Levaquin. He presented again today with urine retention for 10 hours, having had his Link catheter removed as well as nausea and intermittent fevers. In the ED he was found to have retention and a history of bladder spasms which improved immediately with placement of a Link catheter. This revealed fairly clear urine. His left scrotal sac was notable for induration and a fairly hard left testicle. 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 Urology was consulted from the emergency department we will see the patient today, this is Dr. Wilkins. The patient is NPO pending that assessment. [facility] Medical History Encounter for subsequent annual wellness visit in Medicare patient Muscle spasm of back BPH w urinary obs/LUTS Melanoma Elevated PSA Osteoporosis Migraine headache GERD (gastroesophageal reflux disease) Anxiety Hypertension Surgical History History of vasectomy History of prostate biopsy History of circumcision History of hernia repair Family History Mother Cancer Hyperlipidemia Hypertension Migraines Father Cancer Social History marital status: number of children: 2 household members: spouse lives independently: Yes occupational status: previously employed Smoking Status: Never smoker alcohol intake: former substance use type: does not use caffeine: Yes Meds Home Medications and Allergies Home Medications Medication Instructions Recorded Confirmed Type calcipotriene 0.005 % topical cream 1 applic topical DAILY 02/22/22 03/06/24 History alendronate 70 mg tablet 70 mg PO QWEEK #12 tabs 04/12/23 03/06/24 Rx alfuzosin 10 mg tablet,extended 10 mg PO DAILY #90 tabs 04/12/23 03/06/24 Rx release 24 hr citalopram 20 mg tablet 20 mg PO DAILY #90 tabs 04/12/23 03/06/24 Rx losartan 50 mg tablet 50 mg PO DAILY #90 tabs 04/12/23 03/06/24 Rx methocarbamol 750 mg tablet 750 mg PO TID PRN muscle spasm #90 04/12/23 03/06/24 Rx tabs rizatriptan 10 mg disintegrating 10 mg PO Q2H PRN migraine headache 04/12/23 03/06/24 Rx tablet #30 tabs acetaminophen 325 mg capsule 650 mg (2 x 325 mg) PO QID PRN 03/06/24 Rx (Tylenol) pain #60 caps docusate sodium 100 mg capsule 100 mg PO BID #30 caps 03/06/24 Rx (Colace) celecoxib 200 mg capsule (Celebrex) 200 mg PO BID #20 caps 03/12/24 Rx oxycodone 5 mg tablet 5 mg PO Q4-6H PRN pain #14 tabs 03/16/24 Rx levofloxacin 750 mg tablet 750 mg PO Q24H #10 tabs 03/19/24 Rx Allergies Allergy/AdvReac Type Severity Reaction Status Date / Time No Known Drug Allergies Allergy Verified 03/21/24 09:11 Review of Systems Review of Systems Narrative: All else reviewed and otherwise unremarkable except as noted in the history and physical. Exam Vital Signs (past 8 hours): - 03/21/24 09:02 03/21/24 09:07 03/21/24 09:30 Temperature 97.5 F L Pulse Rate 82 99 H 83 Respiratory Rate 14 Blood Pressure 138/73 Pulse Oximetry 99 98 99 Oxygen Delivery Method Room Air 03/21/24 09:37 03/21/24 09:37 03/21/24 10:00 Temperature Pulse Rate 82 Respiratory Rate Blood Pressure 128/74 104/63 Pulse Oximetry 99 Oxygen Delivery Method Room Air 03/21/24 10:00 03/21/24 10:30 03/21/24 10:30 Temperature Pulse Rate 85 87 Respiratory Rate Blood Pressure 130/72 Pulse Oximetry 98 97 Oxygen Delivery Method Room Air 03/21/24 11:00 03/21/24 11:00 03/21/24 11:30 Temperature Pulse Rate 85 83 Respiratory Rate Blood Pressure 119/75 Pulse Oximetry 95 94 Oxygen Delivery Method 03/21/24 11:30 03/21/24 11:46 03/21/24 11:46 Temperature Pulse Rate 94 H Respiratory Rate Blood Pressure 108/57 L 140/72 Pulse Oximetry 98 Oxygen Delivery Method Oxygen Delivery Method Room Air Narrative Exam Narrative: NAD, alert and oriented, fluent speech, calm. Normocephalic skull, EOMI, anicteric sclera, symmetric pupils. Oropharynx unremarkable, no droop. Neck supple, midline trachea, no adenopathy. Lungs clear, normal rate and effort. Heart regular, no murmur gallop or rub. Abdomen is soft, non distended and non tender. Extremities are free of edema. Skin is free of rash or lesions. Joints are not swollen or deformed. Judgment appears to be normal. The scrotum is notable for induration and fairly rigid left testicle as well as a area of induration in a tract above the testicle which is all nontender and minimally mobile. The scrotum itself is not red or warm. The right scrotum is unremarkable with normal testis. Objective Imaging Multiple studies:: Radiologist's impression: Abdomen pelvis CT: Abnormal enhancement of the left testicle, concerning for infarct. Inflammatory changes extend into the epididymis, which could be related to this process, alternatively could be related to a urinary tract infection. Fat stranding and trace free fluid along the left pericolic gutter. Diverticula are present, with minimal wall thickening of the adjacent colon. Findings could represent a resolving case of diverticulitis. Scrotal ultrasound: Abnormal enhancement of the left testicle, concerning for infarct. Inflammatory changes extend into the epididymis, which could be related to this process, alternatively could be related to a urinary tract infection. Fat stranding and trace free fluid along the left pericolic gutter. Diverticula are present, with minimal wall thickening of the adjacent colon. Findings could represent a resolving case of diverticulitis. Labs 03/21/24 09:35 03/21/24 09:35 Labs: Laboratory Results - last 24 hr 03/21/24 03/21/24 09:30 09:35 WBC 24.1 H RBC 3.44 L Hgb 10.7 L Hct 32.3 L MCV 93.7 MCH 31.2 MCHC 33.3 RDW 13.1 Plt Count 368 Neut % (Auto) 92.9 H Lymph % (Auto) 2.4 L [place] % (Auto) 4.4 Eos % (Auto) 0.2 L Baso % (Auto) 0.1 Neut # (Auto) 32489 H Lymph # (Auto) 600 L [place] # (Auto) 1000 H Eos # (Auto) 0 Baso # (Auto) 0 Sodium 131 L Potassium 3.8 Chloride 101 Carbon Dioxide 25 BUN 19 Creatinine 1.01 Estimated GFR > 60 BUN/Creatinine Ratio 18.8 Glucose 109 Lactate 1.0 Calcium 8.4 Total Bilirubin 0.7 AST 31 ALT 26 Alkaline Phosphatase 82 Total Protein 6.5 Albumin 3.5 Globulin 3.0 Albumin/Globulin Ratio 1.2 Urine Color Yellow Urine Appearance Clear Urine pH 5.5 Ur Specific [place] 1.020 Urine Protein Negative Urine Glucose (UA) Negative Urine Ketones Trace H Urine Occult Blood Negative Urine Nitrate Negative Urine Bilirubin Negative Urine Urobilinogen 0.2 Ur Leukocyte Esterase Negative Urine RBC 0-1/hpf Urine WBC 5-10/hpf H Ur Squamous Epith Cells 0-1 /hpf Urine Bacteria Occasional (0-1) D Ur Culture Indicated? Specimen cultured Vol Urine Centrifuged 10ml (spun) Assessment & Plan Assessment & Plan narrative: 1. Pseudomonas urinary tract infection. Present on admission and active. 2. Significant leukocytosis, present on admission and active. 3. 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 4. Urinary retention with necessity for indwelling Link catheter, present on admission and active. 5. Recent bilateral laparoscopic inguinal hernia repairs, present on admission and stable. 6. Hypertension, present on admission and stable. 7. Osteoporosis, present on admission and stable. 8. BPH, present on admission and active. PLAN: -IV antibiotics, blood cultures. -urology consultation requested in the emergency department. NPO pending that assessment. -Link catheter for urine retention. -reintroduce blood pressure medications if he becomes hypertensive Anticipate a 2 midnight length of stay for his acute medical illness. Full resuscitation PADMA: 03/23. Time-Based Coding :: 35 min spent with patient and on the chart (including review of chart, obtaining history, exam, reviewing outside data, placing orders, documenting exam and treatment plan, and counseling patient) on 03/21. Quality MIPS - Admit I confirm the patient?s Advance Care Plan is present, Code status is documented, Surrogate decision maker is in patient?s record [If Yes, STOP here]: Yes [facility] - Meds 'Current medications' to include all prescriptions, [id number] products, herbals, cannabis/cannabidiol products, and vitamin/mineral/dietary (nutritional) supplements. I have utilized all available resources to obtain, update, or review the patient?s current medications. [If Yes, STOP here]: Yes
[2024-03-21] MEDS: PIPERACILLIN/TAZO 3.375 GM in SODIUM CHLORIDE 0.9% 100 ML IV ×2 (14:35→22:18)
[2024-03-21 15:26] LABS: MRSA (Nasal) PCR NOT DETECTED (Not Detect)
--- NOTE | 2024-03-21 17:41 | PM.CN ---
History of Present Illness Consult details Date Patient Seen: 03/21/24 Time Patient Seen: 17:41 Chief complaint: Scrotal hematoma urine retention infarcted testicl Requesting provider: Zaid Ramos Narrative: Was asked to see this 78-year-old male who has a somewhat complicated situation which I will try to outlined. On the 05 of March underwent bilateral laparoscopic hernia repair with mesh. He subsequently went into urinary retention and presented to the emergency department where a Link catheter was placed. He has had the catheter removed and replaced a couple of times. Was found to have a urinary tract infection on the 13 of March when he presented to the emergency department this was Pseudomonas. Again had his catheter manipulated in and out went back into retention presented again on 03/19 again was found to have Pseudomonas. He had been started previously on a cephalosporin was switched to Levaquin. Had his Link catheter replaced. Over this timeframe he was noted to have scrotal enlargement. The patient is unsure when that may have started. He states that it was difficult to tell if he had testicular pain in that his bladder discomfort was so profound. When he was in on the 19 of March he was offered admission as he had a significantly elevated white blood count I believe it was 26,000 but he did not appear septic and the patient felt that he would want to go home deferring admission.. He was sent home on Levaquin. He presented today to the emergency department complaining of urinary retention for at least 10 hours, waxing and waning fevers over the last 48 hours, increasing confusion, general malaise, weakness and overall feeling worse. He is nauseated but not vomiting. He complained of significant bladder pain which was relieved with Link catheter placement. Was noted to have scrotal hematoma and an ultrasound was obtained of the scrotum which revealed the hematoma but what appeared to be an infarcted testicle. I was contacted and recommended that a CT scan be done this was reviewed and I think in fact shows a infarcted testes with evidence of necrosis. Question of the patient regarding testicular pain and he reports that he does not recall or had significant testicular pain which would argue against the patient having torsion. He was admitted to the hospitalist service and is seen in consultation. In review of his CT scan he has a very large prostate and that is probably his bigger problem. He should continue to have Link catheter drainage in his I explained to him he will likely need some kind of therapy surgical in his prostate and we discussed at length Aquablation which he brought up. Also then discuss the situation with his testicle. On exam he has a smallish hematoma some ecchymosis and bruising the scrotal wall palpably normal the testes and area is firm and hard consistent with a infarcted testicle. But it is not particularly tender. He does have some discomfort up in the inguinal area where his laparoscopic hernia repair was done. And so at this point discussed with him surgical intervention versus observation and given his clinical presentation currently we can observe. We will check back in in the morning. His blood cultures from the have come back negative and we will see with the cultures from today are looking like as well as what his white count is done. It was 26 on the and 24 today he does not look septic or toxic and does not look particularly and pain. He is currently Zosyn. I do not see an indication for acute surgical intervention at this time and we will see how this situation unfolds. Has a another note the patient reports that he had a transrectal ultrasound needle biopsy of the prostate which resulted in a profound prostatitis requiring him to be on antibiotics for at least 55 days and he reports this was quite quite miserable. Meds Home Medications and Allergies Home Medications Medication Instructions Recorded Confirmed Type calcipotriene 0.005 % topical cream 1 applic topical DAILY 02/22/22 03/21/24 History alendronate 70 mg tablet 70 mg PO QWEEK #12 tabs 04/12/23 03/21/24 Rx alfuzosin 10 mg tablet,extended 10 mg PO DAILY #90 tabs 04/12/23 03/21/24 Rx release 24 hr citalopram 20 mg tablet 20 mg PO DAILY #90 tabs 04/12/23 03/21/24 Rx losartan 50 mg tablet 50 mg PO DAILY #90 tabs 04/12/23 03/21/24 Rx methocarbamol 750 mg tablet 750 mg PO TID PRN muscle spasm #90 04/12/23 03/21/24 Rx tabs rizatriptan 10 mg disintegrating 10 mg PO Q2H PRN migraine headache 04/12/23 03/21/24 Rx tablet #30 tabs docusate sodium 100 mg capsule 100 mg PO BID #30 caps 03/06/24 03/21/24 Rx (Colace) oxycodone 5 mg tablet 5 mg PO Q4-6H PRN pain #14 tabs 03/16/24 03/21/24 Rx levofloxacin 750 mg tablet 750 mg PO Q24H #10 tabs 03/19/24 03/21/24 Rx Allergies Allergy/AdvReac Type Severity Reaction Status Date / Time No Known Drug Allergies Allergy Verified 03/21/24 09:11 Exam Vital Signs (past 8 hours): - 03/21/24 10:00 03/21/24 10:00 03/21/24 10:30 Pulse Rate 85 87 Respiratory Rate Blood Pressure 104/63 Pulse Oximetry 98 97 Oxygen Delivery Method Room Air 03/21/24 10:30 03/21/24 11:00 03/21/24 11:00 Pulse Rate 85 Respiratory Rate Blood Pressure 130/72 119/75 Pulse Oximetry 95 Oxygen Delivery Method 03/21/24 11:30 03/21/24 11:30 03/21/24 11:46 Pulse Rate 83 Respiratory Rate Blood Pressure 108/57 L 140/72 Pulse Oximetry 94 Oxygen Delivery Method 03/21/24 11:46 03/21/24 13:14 03/21/24 13:26 Pulse Rate 94 H 77 Respiratory Rate Blood Pressure 127/67 Pulse Oximetry 98 96 Oxygen Delivery Method 03/21/24 14:15 03/21/24 14:19 03/21/24 14:30 Pulse Rate 84 82 Respiratory Rate 19 17 Blood Pressure 149/82 H Pulse Oximetry 99 100 Oxygen Delivery Method Oxygen Delivery Method Room Air Narrative Exam Narrative: General: This is an awake, alert, oriented, bearded male appearing comfortable and resting in his hospital bed. Abdominal exam: Soft, minimal tenderness at his surgical port sites and in the inguinal area in the area of his repair. There is some bruising. There appeared to be normal bowel tones Genitourinary exam: Circumcised testes with silicone catheter in place draining clear yellow urine. Left hemiscrotum normal scrotum palpably, normal left testes with some small amount of fluid around, there is bruising in the scrotal skin on the left there is some enlargement the scrotal skin is palpably normal not indurated not red there is ecchymosis. The testes and upper scrotum are firm nontender consistent with an nonacute infarction of the left testes and surrounding hematoma. The patient is a little tender in the pubic tubercle area where he had his laparoscopic hernia repair. Rectal exam: Not indicated. Vital signs appear to be normal in the patient has been afebrile. Objective Labs 03/21/24 09:35 03/21/24 09:35 Labs: Laboratory Results - last 24 hr 03/21/24 03/21/24 03/21/24 09:30 09:35 13:56 WBC 24.1 H RBC 3.44 L Hgb 10.7 L Hct 32.3 L MCV 93.7 MCH 31.2 MCHC 33.3 RDW 13.1 Plt Count 368 Neut % (Auto) 92.9 H Lymph % (Auto) 2.4 L [place] % (Auto) 4.4 Eos % (Auto) 0.2 L Baso % (Auto) 0.1 Neut # (Auto) 65018 H Lymph # (Auto) 600 L [place] # (Auto) 1000 H Eos # (Auto) 0 Baso # (Auto) 0 Sodium 131 L Potassium 3.8 Chloride 101 Carbon Dioxide 25 BUN 19 Creatinine 1.01 Estimated GFR > 60 BUN/Creatinine Ratio 18.8 Glucose 109 Lactate 1.0 Calcium 8.4 Total Bilirubin 0.7 AST 31 ALT 26 Alkaline Phosphatase 82 Total Protein 6.5 Albumin 3.5 Globulin 3.0 Albumin/Globulin Ratio 1.2 Urine Color Yellow Urine Appearance Clear Urine pH 5.5 Ur Specific [place] 1.020 Urine Protein Negative Urine Glucose (UA) Negative Urine Ketones Trace H Urine Occult Blood Negative Urine Nitrate Negative Urine Bilirubin Negative Urine Urobilinogen 0.2 Ur Leukocyte Esterase Negative Urine RBC 0-1/hpf Urine WBC 5-10/hpf H Ur Squamous Epith Cells 0-1 /hpf Urine Bacteria Occasional (0-1) D Ur Culture Indicated? Specimen cultured Vol Urine Centrifuged 10ml (spun) Nasal Screen MRSA (PCR) Not detected [facility] Medical History (Updated 03/21/24 @ 18:01 by Liam Wilkins MD) History of prostatitis Urinary retention Infarction of testicle Encounter for subsequent annual wellness visit in Medicare patient Muscle spasm of back BPH w urinary obs/LUTS Melanoma Elevated PSA Osteoporosis Migraine headache GERD (gastroesophageal reflux disease) Anxiety Hypertension Surgical History History of vasectomy History of prostate biopsy History of circumcision History of hernia repair Family History Mother Cancer Hyperlipidemia Hypertension Migraines Father Cancer Social History marital status: number of children: 2 household members: spouse lives independently: Yes occupational status: previously employed Tobacco & Substance Use Smoking Status: Never smoker alcohol intake: former substance use type: does not use Diet and Exercise caffeine: Yes Assessment & Plan Assessment and plan (1) Infarction of testicle: Status: Acute (2) Hematoma of scrotum: Status: Acute (3) Testicular necrosis: Status: Acute (4) Leukocytosis: Qualifiers: Leukocytosis type: unspecified Qualified Code(s): D72.829 - Elevated white blood cell count, unspecified Status: Acute (5) Urinary tract infection: Qualifiers: Urinary tract infection type: catheter-associated UTI Indwelling urinary catheter type: indwelling urethral catheter Encounter type: initial encounter Qualified Code(s): T83.511A - Infection and inflammatory reaction due to indwelling urethral catheter, initial encounter; N39.0 - Urinary tract infection, site not specified Status: Acute (6) Urinary retention: Status: Acute (7) History of prostatitis: Status: Acute (8) BPH w urinary obs/LUTS: Status: Acute Plan Assessment and plan: 1. 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 No sign or symptom that would indicate torsion. There is evidence of necrosis. The patient is comfortable and not having significant pain in the area. I think this can be observed at this point we will check back in the morning seeing what his white count does and what his cultures were showing. The patient can have water to drink till midnight and then he should be NPO. 2. Testicular necrosis: This and the absence of pain would indicate that the demise of the testicle is nonacute. 3. Leukocytosis in the face of urinary tract infection could also be related to the infarcted tissue. Patient has a CBC in the morning which we will check. 4. Urinary tract infection patient on appropriate antibiotics by IV will await his current cultures. Patient has negative blood cultures from the 19 of March and a new set drawn today. 5. Urinary retention patient with a very large prostate he will need an indwelling Link catheter for some time and will likely need surgical treatment in the future after the current issues are resolved to eliminate his urinary retention. We did have a discussion about Aquablation today and the workup that we required for that. 6. History of transrectal ultrasound needle biopsy of the prostate resulting in prostatitis. It is possible that that may be tied to his current urinary tract infection. 7. We will check back in the morning and revise plans as needed. Time-Based Coding :: [TOTAL MINUTES] spent with patient and on the chart (including review of chart, obtaining history, exam, reviewing outside data, placing orders, documenting exam and treatment plan, and counseling patient) on [DATE].
[2024-03-21] MEDS: methocarbamoL 500 MG TABLET 750 MG PO ×2 (18:15→23:59)
--- NOTE | 2024-03-21 18:26 | PC.ADMIT ---
[email or web address] Admission Note: Pt arrived via gurney from ED, able to move from gurney to bed with little difficulty, VSS, alonzo catheter in place and patent, draining clear yellow urine, oriented pt to room and call light system, all needs met at this time, Dr Ramos at bedside, care ongoing The patient,Yordy Zhu,78 y/o, was given written information regarding hospital policies, unit procedures and contact persons. Patient's smoking status: Never smoker. Vital Signs - 8 hr 03/21/24 10:30 03/21/24 10:30 03/21/24 11:00 Temperature Pulse Rate 87 85 Respiratory Rate Blood Pressure 130/72 Pulse Oximetry 97 95 03/21/24 11:00 03/21/24 11:30 03/21/24 11:30 Temperature Pulse Rate 83 Respiratory Rate Blood Pressure 119/75 108/57 L Pulse Oximetry 94 03/21/24 11:46 03/21/24 11:46 03/21/24 13:14 Temperature Pulse Rate 94 H 77 Respiratory Rate Blood Pressure 140/72 Pulse Oximetry 98 96 03/21/24 13:26 03/21/24 14:15 03/21/24 14:19 Temperature Pulse Rate 84 82 Respiratory Rate 19 17 Blood Pressure 127/67 Pulse Oximetry 99 100 03/21/24 14:30 03/21/24 18:00 Temperature 98.2 F Pulse Rate 75 Respiratory Rate 14 Blood Pressure 149/82 H 123/72 Pulse Oximetry 97
[2024-03-21] MEDS: HEPARIN 5,000 UNIT/ML VIAL 5000 UNIT SUBCUT (22:18)
[2024-03-22] VITALS (8 sets, daily range): BP systolic 110–137; BP diastolic 54–82; PULSE 68–72; RESP 16–20; TEMP 36.5–36.9; O2SAT 93–97
[2024-03-22] MEDS: SODIUM CHLORIDE 0.45% 1,000 ML 100 ML IV (01:15)
[2024-03-22 04:58] LABS: Add Manual Diff / Slide Review NO; Basophils Absolute Auto 0 /uL (0-100); Basophils Percent Auto 0.2 % (0-2); Eosinophils Absolute Auto 100 /uL (0-450); Eosinophils Percent Auto 0.6 % (2-4); Hemoglobin 9.5 g/dL (13.5-17.5); Lymphocytes Absolute Auto 900 /uL (1100-4500); Lymphocytes Percent Auto 6.6 % (25-40); Mean Corpuscular Hemoglobin 31.7 PG (26-34); Mean Corpuscular Volume 93.2 fL (80-100); Monocytes Absolute Auto 600 /uL (0-900); Monocytes Percent Auto 4.5 % (3-14); Neutrophils Absolute Auto 11800 /uL (1500-7000); Neutrophils Percent Auto 88.1 % (50-75); Platelet Count 365 X10^3/uL (150-400); Red Blood Cell Count 3.01 X10^6/uL (4.5-5.9); Red Cell Distribution Width 12.9 % (11.6-14.8); White Blood Cell Count 13.4 X10^3/uL (4.5-11.0)
[2024-03-22 05:09] LABS: Alanine Aminotransferase 21 IU/L (<50); Albumin 2.8 g/dL (3.5-5.0); Albumin Globulin Ratio 1.1 (1.0-2.8); Alkaline Phosphatase 67 U/L (38-126); Aspartate Aminotransferase 24 IU/L (17-59); BUN Creatinine Ratio 15.9 (6-22); Bilirubin Total 0.6 mg/dL (0.2-1.3); Blood Urea Nitrogen 14 mg/dL (9-20); Calcium 7.9 mg/dL (8.4-10.2); Carbon Dioxide 20 mmol/L (22-32); Chloride 110 mmol/L (98-107); Estimated Glomerular Filt Rate > 60 mL/min (>60); Globulin 2.6 g/dL (1.7-4.1); Glucose 86 mg/dL (80-110); HEMOLYSIS < 15 (0-50); Potassium 3.8 mmol/L (3.4-5.1); Sodium 135 mmol/L (137-145); Total Protein 5.4 g/dL (6.3-8.2)
[2024-03-22] MEDS: PIPERACILLIN/TAZO 3.375 GM in SODIUM CHLORIDE 0.9% 100 ML IV ×3 (06:40→21:51)
--- NOTE | 2024-03-22 07:53 | P.PN_ITS ---
Subjective Subjective Interval history: Summary: The patient was a 78-year-old was status post a bilateral laparoscopic inguinal hernia repair on March 06. The patient developed a scrotal hematoma and retention after which required placement of a Link catheter. He then developed a UTI with Pseudomonas he was initially treated with cefdinir and then levofloxacin. In the emergency department he was seen on March 19 and given IV Levaquin and a significant white count was noted. The patient then went home with oral Levaquin. He presented again today with urine retention for 10 hours, having had his Link catheter removed as well as nausea and intermittent fevers. In the ED he was found to have retention and a history of bladder spasms which improved immediately with placement of a Link catheter. This revealed fairly clear urine. His left scrotal sac was notable for induration and a fairly hard left testicle. 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 Urology was consulted from the emergency department we will see the patient today, this is Dr. Wilkins. S: He was doing better today, except he was a migraine which is a recurrent issue for him. He usually takes Maxalt. Dr. Wilkins, urology, we would like to continue IV fluids and antibiotics for another day and then likely convert to oral antibiotics. His urine is clear, he was a Link in for retention. There is no indication for urgent testicular exploration. Exam Vital Signs (past 8 hours): - 03/22/24 00:00 03/22/24 00:35 03/22/24 00:36 Temperature 98.5 F Pulse Rate 70 68 Respiratory Rate 18 Blood Pressure 137/60 Pulse Oximetry 95 96 97 Oxygen Flow Rate 0 03/22/24 00:36 03/22/24 06:00 Temperature Pulse Rate 72 Respiratory Rate 20 Blood Pressure 137/60 110/54 L Pulse Oximetry 94 Oxygen Flow Rate 0 Oxygen Delivery Method Room Air Oxygen Flow Rate 0 Narrative Exam Narrative: NAD, alert and oriented. Fluent speech. Lungs are clear, normal rate and effort. Heart is regular, no murmur gallop or rub. Abdomen is soft, non distended. Extremities are free of edema. The scrotum is notable for induration and fairly rigid left testicle as well as a area of induration in a tract above the testicle which is all nontender and minimally mobile. The scrotum itself is not red or warm. The right scrotum is unremarkable with normal testis. NO CHANGES. Objective Labs 03/22/24 04:20 03/22/24 04:20 Labs: Laboratory Results - last 24 hr 03/21/24 03/21/24 03/21/24 09:30 09:35 13:56 WBC 24.1 H RBC 3.44 L Hgb 10.7 L Hct 32.3 L MCV 93.7 MCH 31.2 MCHC 33.3 RDW 13.1 Plt Count 368 Neut % (Auto) 92.9 H Lymph % (Auto) 2.4 L [place] % (Auto) 4.4 Eos % (Auto) 0.2 L Baso % (Auto) 0.1 Neut # (Auto) 01641 H Lymph # (Auto) 600 L [place] # (Auto) 1000 H Eos # (Auto) 0 Baso # (Auto) 0 Sodium 131 L Potassium 3.8 Chloride 101 Carbon Dioxide 25 BUN 19 Creatinine 1.01 Estimated GFR > 60 BUN/Creatinine Ratio 18.8 Glucose 109 Lactate 1.0 Calcium 8.4 Total Bilirubin 0.7 AST 31 ALT 26 Alkaline Phosphatase 82 Total Protein 6.5 Albumin 3.5 Globulin 3.0 Albumin/Globulin Ratio 1.2 Urine Color Yellow Urine Appearance Clear Urine pH 5.5 Ur Specific [place] 1.020 Urine Protein Negative Urine Glucose (UA) Negative Urine Ketones Trace H Urine Occult Blood Negative Urine Nitrate Negative Urine Bilirubin Negative Urine Urobilinogen 0.2 Ur Leukocyte Esterase Negative Urine RBC 0-1/hpf Urine WBC 5-10/hpf H Ur Squamous Epith Cells 0-1 /hpf Urine Bacteria Occasional (0-1) D Ur Culture Indicated? Specimen cultured Vol Urine Centrifuged 10ml (spun) Nasal Screen MRSA (PCR) Not detected 03/22/24 04:20 WBC 13.4 H RBC 3.01 L Hgb 9.5 L Hct 28.0 L MCV 93.2 MCH 31.7 MCHC 34.0 RDW 12.9 Plt Count 365 Neut % (Auto) 88.1 H Lymph % (Auto) 6.6 L [place] % (Auto) 4.5 Eos % (Auto) 0.6 L Baso % (Auto) 0.2 Neut # (Auto) 27760 H Lymph # (Auto) 900 L [place] # (Auto) 600 Eos # (Auto) 100 Baso # (Auto) 0 Sodium 135 L Potassium 3.8 Chloride 110 H Carbon Dioxide 20 L BUN 14 Creatinine 0.88 Estimated GFR > 60 BUN/Creatinine Ratio 15.9 Glucose 86 Lactate Calcium 7.9 L Total Bilirubin 0.6 AST 24 ALT 21 Alkaline Phosphatase 67 Total Protein 5.4 L Albumin 2.8 L Globulin 2.6 Albumin/Globulin Ratio 1.1 Urine Color Urine Appearance Urine pH Ur Specific [place] Urine Protein Urine Glucose (UA) Urine Ketones Urine Occult Blood Urine Nitrate Urine Bilirubin Urine Urobilinogen Ur Leukocyte Esterase Urine RBC Urine WBC Ur Squamous Epith Cells Urine Bacteria Ur Culture Indicated? Vol Urine Centrifuged Nasal Screen MRSA (PCR) PFSH Medical History History of prostatitis Urinary retention Infarction of testicle Encounter for subsequent annual wellness visit in Medicare patient Muscle spasm of back BPH w urinary obs/LUTS Melanoma Elevated PSA Osteoporosis Migraine headache GERD (gastroesophageal reflux disease) Anxiety Hypertension Surgical History History of vasectomy History of prostate biopsy History of circumcision History of hernia repair Family History Mother Cancer Hyperlipidemia Hypertension Migraines Father Cancer Social History marital status: number of children: 2 household members: spouse lives independently: Yes occupational status: previously employed Smoking Status: Never smoker alcohol intake: former substance use type: does not use caffeine: Yes Assessment & Plan Assessment & Plan narrative: 1. Pseudomonas urinary tract infection. Present on admission and active. 2. Significant leukocytosis, present on admission and active. 3. 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 4. Urinary retention with necessity for indwelling Link catheter, present on admission and active. 5. Recent bilateral laparoscopic inguinal hernia repairs, present on admission and stable. 6. Hypertension, present on admission and stable. 7. Osteoporosis, present on admission and stable. 8. BPH, present on admission and active. PLAN: -IV antibiotics, blood cultures. He had Pseudomonas on previous urine culture. -urology consultation appreciated, no indication for surgery. Plan discussed with Urology, kidney today. -Link catheter for urine retention. He will go home with this. -reintroduce blood pressure medications if he becomes hypertensive Anticipate a 2 midnight length of stay for his acute medical illness. Full resuscitation PADMA: 03/23. Time-Based Coding :: [TOTAL MINUTES] spent with patient and on the chart (including review of chart, obtaining history, exam, reviewing outside data, placing orders, documenting exam and treatment plan, and counseling patient) on [DATE].
--- NOTE | 2024-03-22 08:02 | PM.PN.1 ---
Subjective Subjective Date Patient Seen: 03/22/24 Time Patient Seen: 08:02 Interval history: This 78-year-old male with infarcted left testicle and scrotal hematoma did well overnight nursing reports that he had little or no pain complaints rested well. This morning he complains of a headache but no scrotal pain whatsoever and on exam he has no pain in the scrotum. [place] [id number] his creatinine is at 0.9. He tolerated the liquids last night he denies nausea vomiting abdominal pain. Does have his low back pain. Link catheter remains in place with clear yellow urine patient has had no fevers overnight and appears to be doing well. Exam Vital Signs (past 8 hours): - 03/22/24 00:35 03/22/24 00:36 03/22/24 00:36 Pulse Rate 68 Respiratory Rate Blood Pressure 137/60 Pulse Oximetry 96 97 Oxygen Flow Rate 03/22/24 06:00 Pulse Rate 72 Respiratory Rate 20 Blood Pressure 110/54 L Pulse Oximetry 94 Oxygen Flow Rate 0 Oxygen Delivery Method Room Air Oxygen Flow Rate 0 Narrative Exam Narrative: General: This is an awake, alert, oriented male resting in his hospital bed in no distress. Abdominal exam: Soft, nontender normal bowel sounds. Genitourinary exam: Inguinal area with bruising and some swelling bilaterally slightly tender over the pubic tubercle in the area of his hernia repair testicle on the right in right hemiscrotum remained normal. On the left again the testicle is firm hard nontender and has ecchymosis and bruising in the skin no induration or thickening it has not red hot or warm. And it in fact appears little smaller than it was yesterday. Link catheter remains in place with clear yellow urine. Objective Labs 03/22/24 04:20 03/22/24 04:20 Labs: Laboratory Results - last 24 hr 03/21/24 03/21/24 03/21/24 09:30 09:35 13:56 WBC 24.1 H RBC 3.44 L Hgb 10.7 L Hct 32.3 L MCV 93.7 MCH 31.2 MCHC 33.3 RDW 13.1 Plt Count 368 Neut % (Auto) 92.9 H Lymph % (Auto) 2.4 L [place] % (Auto) 4.4 Eos % (Auto) 0.2 L Baso % (Auto) 0.1 Neut # (Auto) 94560 H Lymph # (Auto) 600 L [place] # (Auto) 1000 H Eos # (Auto) 0 Baso # (Auto) 0 Sodium 131 L Potassium 3.8 Chloride 101 Carbon Dioxide 25 BUN 19 Creatinine 1.01 Estimated GFR > 60 BUN/Creatinine Ratio 18.8 Glucose 109 Lactate 1.0 Calcium 8.4 Total Bilirubin 0.7 AST 31 ALT 26 Alkaline Phosphatase 82 Total Protein 6.5 Albumin 3.5 Globulin 3.0 Albumin/Globulin Ratio 1.2 Urine Color Yellow Urine Appearance Clear Urine pH 5.5 Ur Specific [place] 1.020 Urine Protein Negative Urine Glucose (UA) Negative Urine Ketones Trace H Urine Occult Blood Negative Urine Nitrate Negative Urine Bilirubin Negative Urine Urobilinogen 0.2 Ur Leukocyte Esterase Negative Urine RBC 0-1/hpf Urine WBC 5-10/hpf H Ur Squamous Epith Cells 0-1 /hpf Urine Bacteria Occasional (0-1) D Ur Culture Indicated? Specimen cultured Vol Urine Centrifuged 10ml (spun) Nasal Screen MRSA (PCR) Not detected 03/22/24 04:20 WBC 13.4 H RBC 3.01 L Hgb 9.5 L Hct 28.0 L MCV 93.2 MCH 31.7 MCHC 34.0 RDW 12.9 Plt Count 365 Neut % (Auto) 88.1 H Lymph % (Auto) 6.6 L [place] % (Auto) 4.5 Eos % (Auto) 0.6 L Baso % (Auto) 0.2 Neut # (Auto) 73168 H Lymph # (Auto) 900 L [place] # (Auto) 600 Eos # (Auto) 100 Baso # (Auto) 0 Sodium 135 L Potassium 3.8 Chloride 110 H Carbon Dioxide 20 L BUN 14 Creatinine 0.88 Estimated GFR > 60 BUN/Creatinine Ratio 15.9 Glucose 86 Lactate Calcium 7.9 L Total Bilirubin 0.6 AST 24 ALT 21 Alkaline Phosphatase 67 Total Protein 5.4 L Albumin 2.8 L Globulin 2.6 Albumin/Globulin Ratio 1.1 Urine Color Urine Appearance Urine pH Ur Specific [place] Urine Protein Urine Glucose (UA) Urine Ketones Urine Occult Blood Urine Nitrate Urine Bilirubin Urine Urobilinogen Ur Leukocyte Esterase Urine RBC Urine WBC Ur Squamous Epith Cells Urine Bacteria Ur Culture Indicated? Vol Urine Centrifuged Nasal Screen MRSA (PCR) [facility] Medical History History of prostatitis Urinary retention Infarction of testicle Encounter for subsequent annual wellness visit in Medicare patient Muscle spasm of back BPH w urinary obs/LUTS Melanoma Elevated PSA Osteoporosis Migraine headache GERD (gastroesophageal reflux disease) Anxiety Hypertension Surgical History History of vasectomy History of prostate biopsy History of circumcision History of hernia repair Family History Mother Cancer Hyperlipidemia Hypertension Migraines Father Cancer Social History marital status: number of children: 2 household members: spouse lives independently: Yes occupational status: previously employed Smoking Status: Never smoker alcohol intake: former substance use type: does not use caffeine: Yes Assessment & Plan Assessment and plan (1) Infarction of testicle: Status: Acute (2) BPH w urinary obs/LUTS: Status: Acute (3) Hematoma of scrotum: Status: Acute (4) Testicular necrosis: Status: Acute (5) Urinary tract infection: Qualifiers: Encounter type: initial encounter Indwelling urinary catheter type: indwelling urethral catheter Urinary tract infection type: catheter-associated UTI Qualified Code(s): T83.511A - Infection and inflammatory reaction due to indwelling urethral catheter, initial encounter; N39.0 - Urinary tract infection, site not specified Status: Acute (6) Urinary retention: Status: Acute (7) History of prostatitis: Status: Acute Plan Assessment and plan: Patient has had significant improvement in his white count overnight in his creatinine is in a favorable place at 0.9. He has no pain in his left hemiscrotum. His cultures at this point remain negative and as he is I see no indication for operation. This was discussed with the patient at length and he was quite happy about that. I did warn him that things could put below up that he could develop infection in his left hemiscrotum at which time we would need to operate. But as things were heading I do not foresee that happening. Discuss this with Dr. Ramos we will feed the patient all check back over the noon hour I do believe that he should remain in the hospital on IV antibiotics till the cultures return. 2. Urinary retention with regard to his urinary retention he needs to continue on bladder rest with a Link catheter. He will need to go home with a catheter and we will workup his outlet obstruction urinary retention as an outpatient as I believe the patient will likely need a procedure to treat the situation given the apparent size of his prostate and his clinical course. Time-Based Coding :: [TOTAL MINUTES] spent with patient and on the chart (including review of chart, obtaining history, exam, reviewing outside data, placing orders, documenting exam and treatment plan, and counseling patient) on [DATE].
[2024-03-22] MEDS: HEPARIN 5,000 UNIT/ML VIAL 5000 UNIT SUBCUT ×2 (08:39→20:52)
[2024-03-22] MEDS: SUMAtriptan 25 MG TABLET 50 MG PO (08:39)
[2024-03-22] MEDS: DOCUSATE 100 MG CAPSULE PO (11:52)
--- NOTE | 2024-03-22 16:46 | CM.DANOTE ---
B DCP Assessment note pt is a 78yo M here for post op complications from a bilateral lap hernia repair 03/06/[address] Harris. mult ED visits since. The patient developed a scrotal hematoma and retention after which required placement of a Link catheter. He then developed a UTI with Pseudomonas he was initially treated with cefdinir and then levofloxacin (H&P). PCP Gina Payer Ndiaye and self pay FUNERAL HOME MANAGER reviewed EMR. Per provider in morning rounds, plan is to DC Monday PO ABX. Per Dr. Wilkins urology note, no operation plans at this time. plan to dc home with a catheter and OP f/u. Per chart, pt lives in [place] with spouse Eli. indep, no DME per chart. per RN note, able to move OOB with nursing. FUNERAL HOME MANAGER unable to meet with pt today due to triaging needs. Currently already has a f/u appt with MEHRAN Fuentes scheduled for 03/26 (next Monday) for back muscle spasm concerns. P: anticipate dc home with spouse support Sat and close OP f/u rec. CM team to notify TCM team at dc. no identified barriers to safe dc home at this time. CM team will continue to follow clinical course closely. JORDI Conteh Discharge Planning/Care Management CM Discharge Assessment Start: 03/22/24 16:42 Freq: Status: Active Protocol: Document 03/22/24 16:42 SL (Rec: 03/22/24 16:46 SL [id number]) Discharge Planning Assessment Assigned [employer]ator JORDI Mattson DPOA/Assigned Designee Name sarah Benitez Contact Information [phone] Advance Directives? Yes Advance Directives on File Yes History Provided By Patient Has Patient been admitted in last 30 Yes days? Comment post a bilateral laparoscopic inguinal hernia repair on with Dr. Harris Prior Living Arrangements House Household Members spouse Independent with ADL's Yes Discharge Plan Home Review Status In Process Please Provide Date Initial DC 03/22/24 Assessment Was Performed Next Review Type Continued Stay Review
[2024-03-22] MEDS: methocarbamoL 500 MG TABLET 750 MG PO ×2 (18:53→23:39)
[2024-03-23] VITALS: BP 140/70; PULSE 71; RESP 18; O2SAT 96
[2024-03-23 04:04] VITALS: BP 134/73; PULSE 61; RESP 18; O2SAT 96
[2024-03-23 04:59] LABS: Add Manual Diff / Slide Review NO; Basophils Absolute Auto 200 /uL (0-100); Basophils Percent Auto 3.3 % (0-2); Eosinophils Absolute Auto 200 /uL (0-450); Eosinophils Percent Auto 2.3 % (2-4); Hematocrit 30.1 % (41-53); Hemoglobin 10.2 g/dL (13.5-17.5); Lymphocytes Absolute Auto 1100 /uL (1100-4500); Lymphocytes Percent Auto 15.4 % (25-40); Mean Corpuscular HGB Conc 33.7 % (30-36); Mean Corpuscular Hemoglobin 31.6 PG (26-34); Mean Corpuscular Volume 93.7 fL (80-100); Monocytes Absolute Auto 500 /uL (0-900); Monocytes Percent Auto 7.5 % (3-14); Neutrophils Absolute Auto 5000 /uL (1500-7000); Neutrophils Percent Auto 71.5 % (50-75); Platelet Count 431 X10^3/uL (150-400); Red Blood Cell Count 3.22 X10^6/uL (4.5-5.9); Red Cell Distribution Width 12.7 % (11.6-14.8)
[2024-03-23 05:14] LABS: Alanine Aminotransferase 23 IU/L (<50); Albumin Globulin Ratio 1.1 (1.0-2.8); Alkaline Phosphatase 68 U/L (38-126); Aspartate Aminotransferase 29 IU/L (17-59); BUN Creatinine Ratio 20.2 (6-22); Bilirubin Total 0.6 mg/dL (0.2-1.3); Blood Urea Nitrogen 18 mg/dL (9-20); Calcium 8.4 mg/dL (8.4-10.2); Carbon Dioxide 20 mmol/L (22-32); Chloride 112 mmol/L (98-107); Estimated Glomerular Filt Rate > 60 mL/min (>60); Globulin 2.8 g/dL (1.7-4.1); Glucose 96 mg/dL (80-110); HEMOLYSIS < 15 (0-50); Potassium 4.1 mmol/L (3.4-5.1); Sodium 138 mmol/L (137-145); Total Protein 5.8 g/dL (6.3-8.2)
[2024-03-23] MEDS: PIPERACILLIN/TAZO 3.375 GM in SODIUM CHLORIDE 0.9% 100 ML IV (06:19)
[2024-03-23] MEDS: HEPARIN 5,000 UNIT/ML VIAL 5000 UNIT SUBCUT (08:49)
[2024-03-23] MEDS: DOCUSATE 100 MG CAPSULE PO (08:49)
--- NOTE | 2024-03-23 09:03 | P.PN_ITS ---
Subjective Subjective Date Patient Seen: 03/23/24 Time Patient Seen: 09:04 Interval history: Patient is seen in follow-up of urologic issues. Patient reports feeling great. He is afebrile his white count is down to 7, his creatinine is normal. He is tolerating a regular diet, ambulating without difficulty and voices no pain complaint. Link catheter remains in place draining clear yellow urine. Cultures have remained negative urine culture is negative. Patient has a history of Pseudomonas. Patient appears to be in his position to be discharged to home from a urologic point of view patient should go home with his Link catheter we will contact him the beginning of the week to establish follow-up. Exam Vital Signs (past 8 hours): - 03/23/24 04:04 Pulse Rate 61 Respiratory Rate 18 Blood Pressure 134/73 Pulse Oximetry 96 Oxygen Flow Rate 0 Oxygen Delivery Method Room Air Oxygen Flow Rate 0 Narrative Exam Narrative: General: This is an awake, alert, oriented male sitting in a chair eating breakfast in appearing comfortable and in no distress. Abdominal exam: Soft, nontender, normal bowel tones Genitourinary exam stable no new tenderness in the left hemiscrotum Link catheter remains in place draining clear yellow urine Objective Labs 03/23/24 03:50 03/23/24 03:50 Labs: Laboratory Results - last 24 hr 03/23/24 03:50 WBC 7.0 RBC 3.22 L Hgb 10.2 L Hct 30.1 L MCV 93.7 MCH 31.6 MCHC 33.7 RDW 12.7 Plt Count 431 H Neut % (Auto) 71.5 Lymph % (Auto) 15.4 L [place] % (Auto) 7.5 Eos % (Auto) 2.3 Baso % (Auto) 3.3 H Neut # (Auto) 5000 Lymph # (Auto) 1100 [place] # (Auto) 500 Eos # (Auto) 200 Baso # (Auto) 200 H Sodium 138 Potassium 4.1 Chloride 112 H Carbon Dioxide 20 L BUN 18 Creatinine 0.89 Estimated GFR > 60 BUN/Creatinine Ratio 20.2 Glucose 96 Calcium 8.4 Total Bilirubin 0.6 AST 29 ALT 23 Alkaline Phosphatase 68 Total Protein 5.8 L Albumin 3.0 L Globulin 2.8 Albumin/Globulin Ratio 1.1 [facility] Medical History History of prostatitis Urinary retention Infarction of testicle Encounter for subsequent annual wellness visit in Medicare patient Muscle spasm of back BPH w urinary obs/LUTS Melanoma Elevated PSA Osteoporosis Migraine headache GERD (gastroesophageal reflux disease) Anxiety Hypertension Surgical History History of vasectomy History of prostate biopsy History of circumcision History of hernia repair Family History Mother Cancer Hyperlipidemia Hypertension Migraines Father Cancer Social History marital status: number of children: 2 household members: spouse lives independently: Yes occupational status: previously employed Smoking Status: Never smoker alcohol intake: former substance use type: does not use caffeine: Yes Assessment & Plan Assessment and plan (1) Infarction of testicle: Status: Acute (2) Urinary retention: Status: Acute (3) History of prostatitis: Status: Acute (4) Hematoma of scrotum: Status: Acute (5) Testicular necrosis: Status: Acute Plan Assessment and plan: Patient markedly improved from urologic point of view the patient can be discharged to home he should be discharged to home with his Link catheter. We will contact him from my office the beginning of the week to establish follow-up. Instructions were given to the patient regarding care of his Link catheter he is to clean around the meatus with a 50 50 mixture of hydrogen peroxide and water and apply bacitracin ointment when there is crusting and perhaps b.i.d.. 2. Infection patient should be discharged to home on oral antibiotics and this should be for an extended course of at least 2-3 weeks we will make adjustments as an outpatient if needed. 3. This was discussed with the hospitalist on-call. Time-Based Coding :: [TOTAL MINUTES] spent with patient and on the chart (including review of chart, obtaining history, exam, reviewing outside data, placing orders, documenting exam and treatment plan, and counseling patient) on [DATE].
--- NOTE | 2024-03-23 09:21 | CM.DPNOTE ---
DCP note GEOTECHNICAL INTERN reviewed EMR. Per chart review, pt cleared to dc home today with PO abx and alonzo catheter for a week and f/u with urology in OP setting. GEOTECHNICAL INTERN messaged TCM team with updates, [place] would like pt to f/u with PCP Gina within 7 days. Per chart review, no further CM needs identified at this time. P: anticipate dc home with spouse support today and close OP f/u rec. no identified barriers to safe dc home at this time. CM team will continue to follow clinical course as needed. JORDI Conteh
--- NOTE | 2024-03-23 11:19 | PC.NURSE ---
Day shift: Paperwork signed and all questions answered. Fariba remains in place and is patent. In place per MD. Pt has all personal belongings. Spouse is driving him home. New script at Pt's pharmacy. Left unit via WC at approx [phone]. Taken out by BISHNU Rouse.
--- NOTE | 2024-03-23 16:50 | PM.DS.1 ---
History of Present Illness History of Present Illness Date Patient Seen: 03/23/24 Time Patient Seen: 08:30 Date of Onset of Symptoms: 03/21/24 Chief complaint: Scrotal hematoma urine retention infarcted testicl Narrative: Narrative: The patient was a 78-year-old was status post a bilateral laparoscopic inguinal hernia repair on March 06. The patient developed a scrotal hematoma and retention after which required placement of a Alonzo catheter. He then developed a UTI with Pseudomonas he was initially treated with cefdinir and then levofloxacin. In the emergency department he was seen on March 19 and given IV Levaquin and a significant white count was noted. The patient then went home with oral Levaquin. He presented again today with urine retention for 10 hours, having had his Alonzo catheter removed as well as nausea and intermittent fevers. In the ED he was found to have retention and a history of bladder spasms which improved immediately with placement of a Alonzo catheter. This revealed fairly clear urine. His left scrotal sac was notable for induration and a fairly hard left testicle. 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 Urology was consulted from the emergency department we will see the patient today, this is Dr. Wilkins. The patient is NPO pending that assessment. Discharge Providers Provider Date of admission: 03/21/24 12:33 Discharge Date: 03/23/24 Primary care physician: Richi Fuentes DO Consults: 03/21/24 11:31 Consult to Urology Stat Comment: Consulting Provider: Liam Wilkins Reason for consultation: sctotal mass, testicle, infection Has provider been notified: Yes Discharge provider: Alex Smith MD Summary Hospital Course Discharge Diagnosis: 1. Pseudomonas urinary tract infection. 2. Significant leukocytosis due to 1. 3. 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 4. Urinary retention due to BPH with necessity for indwelling Alonzo catheter. 5. Recent bilateral laparoscopic inguinal hernia repairs. 6. Hypertension. 7. Osteoporosis. 8. BPH. Hospital Course: Patient was admitted and started on broad-spectrum IV antibiotics to treat Pseudomonas noted on previous urine culture, and urology consulted. He underwent Alonzo catheter placement for urinary retention, to be kept in at discharge until outpatient follow-up in the arranged. Severe leukocytosis resolved and electrolytes and renal function remained normal. There was felt to be no indication for testicular surgical exploration, and close outpatient follow-up was advised. An extended course of antibiotics was administered as treatment of the known UTI as well as prophylaxis for reducing the risk of infection of the scrotal hematoma. No other issues arose. Status at Discharge Cognitive/behavioral status at discharge: oriented Functional status at discharge: independent ambulation Overall status at discharge: patient is back to baseline Time Spent with Patient Time spent: Less than 30 minutes Exam Vital Signs (past 8 hours): Oxygen Delivery Method Room Air Oxygen Flow Rate 0 Narrative Exam Narrative: NAD, alert and oriented. Fluent speech. Lungs are clear, normal rate and effort. Heart is regular, no murmur gallop or rub. Abdomen is soft, non distended. Extremities are free of edema. The scrotum is notable for induration and fairly rigid left testicle as well as a area of induration in a tract above the testicle which is all nontender and minimally mobile. The scrotum itself is not red or warm. The right scrotum is unremarkable with normal testis. Objective Imaging Scrotum ultrasound 03/21/2024: : Radiologist's impression: No visualized arterial and venous slow in the left testicle highly suspicious for torsion possibly within the cord. Abdomen/pelvis CT 03/21/2024:: Radiologist's impression: Abnormal enhancement of the left testicle, concerning for infarct. Inflammatory changes extend into the epididymis, which could be related to this process, alternatively could be related to a urinary tract infection. Fat stranding and trace free fluid along the left pericolic gutter. Diverticula are present, with minimal wall thickening of the adjacent colon. Findings could represent a resolving case of diverticulitis. Other chronic findings as above. Labs 03/23/24 03:50 03/23/24 03:50 Labs: Laboratory Results - last 24 hr 03/23/24 03:50 WBC 7.0 RBC 3.22 L Hgb 10.2 L Hct 30.1 L MCV 93.7 MCH 31.6 MCHC 33.7 RDW 12.7 Plt Count 431 H Neut % (Auto) 71.5 Lymph % (Auto) 15.4 L [place] % (Auto) 7.5 Eos % (Auto) 2.3 Baso % (Auto) 3.3 H Neut # (Auto) 5000 Lymph # (Auto) 1100 [place] # (Auto) 500 Eos # (Auto) 200 Baso # (Auto) 200 H Sodium 138 Potassium 4.1 Chloride 112 H Carbon Dioxide 20 L BUN 18 Creatinine 0.89 Estimated GFR > 60 BUN/Creatinine Ratio 20.2 Glucose 96 Calcium 8.4 Total Bilirubin 0.6 AST 29 ALT 23 Alkaline Phosphatase 68 Total Protein 5.8 L Albumin 3.0 L Globulin 2.8 Albumin/Globulin Ratio 1.1 PFSH Medical History History of prostatitis Urinary retention Infarction of testicle Encounter for subsequent annual wellness visit in Medicare patient Muscle spasm of back BPH w urinary obs/LUTS Melanoma Elevated PSA Osteoporosis Migraine headache GERD (gastroesophageal reflux disease) Anxiety Hypertension Surgical History History of vasectomy History of prostate biopsy History of circumcision History of hernia repair Family History Mother Cancer Hyperlipidemia Hypertension Migraines Father Cancer Social History marital status: number of children: 2 household members: spouse lives independently: Yes occupational status: previously employed Smoking Status: Never smoker alcohol intake: former substance use type: does not use caffeine: Yes Discharge Plan Discharge Plan Patient Disposition: Home Provider Discharge Comment: Followup with Dr. Fuentes 1 week, Dr. Wilkins this week with alonzo catheter in place until followup Discharge orders & Medications Prescriptions: New levofloxacin 500 mg tablet 500 mg PO DAILY Qty: 14 0RF Continued calcipotriene 0.005 % cream 1 applic topical DAILY Rx Instructions: rub in gently and completely methocarbamol 750 mg tablet 750 mg PO TID PRN (Reason: muscle spasm) Qty: 90 5RF rizatriptan 10 mg tablet,disintegrating 10 mg PO Q2H MDD 20mg PRN (Reason: migraine headache) Qty: 30 11RF alendronate 70 mg tablet 70 mg PO QWEEK Qty: 12 3RF alfuzosin 10 mg tablet extended release 24 hr 10 mg PO DAILY Qty: 90 3RF Rx Instructions: administer after the same meal each day citalopram 20 mg tablet 20 mg PO DAILY Qty: 90 3RF losartan 50 mg tablet 50 mg PO DAILY Qty: 90 3RF docusate sodium [Colace] 100 mg capsule 100 mg PO BID Qty: 30 0RF levofloxacin 750 mg tablet 750 mg PO Q24H Qty: 10 0RF Discontinued oxycodone 5 mg tablet 5 mg PO Q4-6H PRN (Reason: pain) Qty: 14 0RF Rx Instructions: 1-2 tabs every 4-6 hrs as needed for pain Follow up/Referrals: Richi Fuentes DO [Primary Care Provider] - Visit Report/Discharge Packet Instructions: How to Care for Your Alonzo Catheter -- Male, Urinary Tract Infection, DI for Urinary Tract Infection (UTI), How to Prevent Falls Stand Alone Forms: Patient Portal/API, Stroke Signs & Symptoms Discharge Data Primary Care Provider: Richi Fuentes Quality MIPS - Admit I confirm the patient?s Advance Care Plan is present, Code status is documented, Surrogate decision maker is in patient?s record [If Yes, STOP here]: Yes MIPS - Meds 'Current medications' to include all prescriptions, viin-eyd-gbanjxv products, herbals, cannabis/cannabidiol products, and vitamin/mineral/dietary (nutritional) supplements. I have utilized all available resources to obtain, update, or review the patient?s current medications. [If Yes, STOP here]: Yes MIPS - DC The patient has a history of heart transplant or Left Ventricular Assist Device (LVAD). If yes, STOP here.: No The patient has current or prior documentation of left ventricular ejection fraction (LVEF) less than or equal to 40%, or moderate or severely depressed left ventricular systolic function.: No A. The patient was prescribed or already taking an Angiotensin-Converting Enzyme (SANDEEP) Inhibitor, or Angiotensin Receptor Franklyn (ARB).: No B. The patient was prescribed or already taking a beta-franklyn. [If Yes to Both A & B, STOP here]: No Patient not prescribed/taking SANDEEP or ARB, no reason given.: No Patient not prescribed/taking beta-franklyn, no reason given.: No PROFEE Charge Codes Discharge inpatient/observation: [id number]
== END 2024-03-23 11:21 | disposition home or self-care (01) | DRG 699 ==
LOC: ED 09:04 → AC 12:34 → ICU 13:39
PROVIDERS: Admitting Provider Hospitalist; Emergency Provider Emergency Medicine; Family Provider Family Medicine; PCP Family Medicine; Referring Provider Emergency Medicine; Visit Provider Hospitalist
DX: T83.511A Infection and inflammatory reaction due to indwelling urethral catheter, initial encounter (principal); N44.00 Torsion of testis, unspecified; N39.0 Urinary tract infection, site not specified; N50.1 Vascular disorders of male genital organs; N50.89 Other specified disorders of the male genital organs; I10 Essential (primary) hypertension; M81.0 Age-related osteoporosis without current pathological fracture; N40.1 Benign prostatic hyperplasia with lower urinary tract symptoms; B96.5 Pseudomonas (aeruginosa) (mallei) (pseudomallei) as the cause of diseases classified elsewhere; R33.8 Other retention of urine; G43.909 Migraine, unspecified, not intractable, without status migrainosus; Y73.1 Therapeutic (nonsurgical) and rehabilitative gastroenterology and urology devices associated with adverse incidents; Z98.890 Other specified postprocedural states; Z87.438 Personal history of other diseases of male genital organs; R00.0 Tachycardia, unspecified
CPT/HCPCS: 36415; 51798; 71045; 74177; 76870; 80053; 81001; 81003; 81015; 83605; 83690; 84145; 85007; 85025; 85610; 85730; 87040; 87077; 87086; 87186; 87797; 93005; 93010; 93975; 96365; 96366; 96375; 99232; 99233; 99284; 99285; J1644; J1956; J2405; J2543; J7050; Q9967

== ENCOUNTER → 2024-04-19 14:36 | Outpatient (CLI) | payer OTHER, SELFPAY ==
[2024-04-08 08:43] VITALS: BMI 21.6
== END ==
PROVIDERS: Family Provider Family Medicine; PCP Family Medicine; Visit Provider Urology
DX: R33.9 Retention of urine, unspecified (principal); N40.1 Benign prostatic hyperplasia with lower urinary tract symptoms; N13.8 Other obstructive and reflux uropathy
CPT/HCPCS: 87077; 87086

== ENCOUNTER → 2024-05-09 16:50 | Outpatient (CLI) | payer OTHER, SELFPAY ==
[2024-04-08 08:43] VITALS: BMI 21.6
== END ==
PROVIDERS: Family Provider Family Medicine; PCP Family Medicine; Visit Provider Urology
DX: S30.22XA Contusion of scrotum and testes, initial encounter (principal); N50.1 Vascular disorders of male genital organs; N40.1 Benign prostatic hyperplasia with lower urinary tract symptoms; N13.8 Other obstructive and reflux uropathy; R33.9 Retention of urine, unspecified; Z87.438 Personal history of other diseases of male genital organs
CPT/HCPCS: 87077; 87086; 87147; 87186; 99214

== ENCOUNTER → 2024-05-17 12:03 | Outpatient (CLI) | payer OTHER, SELFPAY ==
[2024-04-08 08:43] VITALS: BMI 21.6
== END ==
PROVIDERS: Family Provider Family Medicine; PCP Family Medicine; Visit Provider Urology
DX: R33.9 Retention of urine, unspecified (principal); N40.1 Benign prostatic hyperplasia with lower urinary tract symptoms; N13.8 Other obstructive and reflux uropathy
CPT/HCPCS: 87077; 87086; 87147

== ENCOUNTER → 2024-05-22 13:35 | Outpatient (CLI) | payer OTHER, SELFPAY ==
[2024-04-08 08:43] VITALS: BMI 21.6
== END ==
PROVIDERS: Family Provider Family Medicine; PCP Family Medicine; Visit Provider Urology
DX: N40.1 Benign prostatic hyperplasia with lower urinary tract symptoms (principal); N13.8 Other obstructive and reflux uropathy
CPT/HCPCS: 51741; 52000; 76872; 81002; 87086

== ENCOUNTER → 2024-10-24 15:28 | Outpatient (CLI) | payer OTHER, SELFPAY ==
[2024-07-11 16:24] VITALS: BMI 21.6
--- NOTE | 2024-10-24 15:29 | DI.US.S_ITS ---
PROCEDURE: US SCROTUM INDICATIONS: SWELLING TECHNIQUE: Real-time scanning was performed of the scrotum and testicles, with image documentation. Color and pulse Doppler interrogation was performed of both testicles. COMPARISON: [facility], CT, CT ABDOMEN PELVIS W CON, 03/21/2024, 11:44. [facility], US, US SCROTUM, 03/21/2024, 9:53. [facility], US, US SCROTUM, 03/13/2024, 12:27. FINDINGS: Right: Testicle is normal in size at 3.9 x 3.2 x 2.0 cm, and heterogeneous in echotexture. Epididymis is normal in overall size and morphology. Moderate to large hydrocele. No varicoceles. Overlying scrotal skin is normal in thickness. Left: Testicle is small at 2.6 x 1.8 x 1.0 cm, and heterogeneous in echotexture. Epididymis is heterogeneous. No hydrocele or varicoceles. Overlying scrotal skin is normal in thickness. Heterogeneous material is seen in the left inguinal canal. Doppler: Color and pulse Doppler flow is demonstrated to each testicle. IMPRESSION: 1. 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 Some Doppler flow is seen on the current exam. 2. Heterogeneous material in the left inguinal canal is of uncertain etiology and may represent inflammatory tissue versus residual hematoma or fat necrosis. 3. Nonspecific heterogeneous and mildly edematous appearance of the right testicle with normal Doppler flow. 4. Moderate to large right hydrocele. Approved by: Vipul Suárez M.D. on 10/25/2024 at 11:33
== END ==
LOC: US 15:29
PROVIDERS: Family Provider Family Medicine; PCP Family Medicine; Referring Provider Family Medicine; Visit Provider Family Medicine
DX: N50.89 Other specified disorders of the male genital organs (principal); N43.3 Hydrocele, unspecified
CPT/HCPCS: 76870; 93976

== ENCOUNTER 2024-11-13 13:45 | Outpatient (RCR) | payer OTHER, SELFPAY ==
[2024-07-11 16:24] VITALS: BMI 21.6
--- NOTE | 2024-08-05 12:33 | PT.OIE ---
Current Diagnoses Muscle spasm of back (08/05/24) Other muscle spasm (08/05/24) Personal history of other diseases of the digestive system (08/05/24) Other specified postprocedural states (08/05/24) Past Medical History (Last Updated 04/02/24 @ 14:55 by Lindsay Drake RN) Anxiety BPH w urinary obs/LUTS Elevated PSA Encounter for subsequent annual wellness visit in Medicare patient GERD (gastroesophageal reflux disease) History of prostatitis Hx of skin malignancy Hypertension Infarction of testicle Melanoma Migraine headache Muscle spasm of back Osteoporosis Urinary retention Past Surgical History (Last Reviewed 03/22/24 @ 07:54 by Zaid Ramos MD) History of circumcision History of hernia repair History of prostate biopsy History of vasectomy Visit Care Team Role Provider Type Richi Fuentes DO Attending Provider Physician Family Provider Primary Care Provider Referring Provider Specialty: Family Practice Address: [address] [place] [address], [address], [facility] Email: [email or web address] [facility] Initial Evaluation PT-OP-A Visit Information Start: 08/01/24 18:55 Freq: Status: Active Protocol: Document 08/05/24 11:32 [facility] (Rec: 08/05/24 12:33 [facility] [id number]) Out-Patient Physical Therapy Visit Information Visit Information Visit Type Initial Evaluation Visit Start Time 11:30 Visit Stop Time 12:15 Visit Number 1 (04/26) Number of COMPANY [employer] WORKER Visits 0 PT-OP-B Current Condition Start: 08/01/24 18:55 Freq: Status: Active Protocol: Document 08/05/24 11:32 [facility] (Rec: 08/05/24 12:33 [facility] [id number]) Current Condition History of Current Condition Onset Date worse 2 months ago after fall w/hitting head Current Complaints neck and thoracic spasms History of Current Condition 7 or 8 years ago had a spasm on R side and she saw PT and it helped a lot. THe spot now is on the L ribcage. He does see acupuncture for ALTAMIRANO. When this spot gives an issue, he takes a methylcarbonol and that is the only that helps. It is always at night and it is just about every day. Doing work seems beneficial for back. does have osteoporosis. Fell hit forehead about 2 months ago where caught foot on bar and hit ant head. Never bruised but neck, chest and back were in spasm. The chest feels better now and back is better except that one point. Neck is the most disturbing. He is a side sleeper because if he sleeps on his back, a spasm comes on. this has been for a couple years. no neck pain prior to the fall. can massage and give release during the day. does have hx of L shoulder pain and soreness-can't do push up anymore but that was prior to the falls. He has lived w/ALTAMIRANO since an elementary student and was dx w/migraines about 15 years ago. Denies numbness/ tingling in arms, dizziness or lightheadedness. Had a hernia repair B inguinal on Feb 2024 . was in ER 4x after surgery ( bladder infections, UTIs,etc) and had to wear a catheter for 8 weeks. THat brought on spasms at the time too. Has been deconditioned since then. Pt had been told by 2 different surgeons he had a compressed disc and needed sx but pt opted for PT w/success Treatment Goals Patient/Caregiver Goals Be able to sleep through the night and cook w/o pain limiting, PT-OP-C Subjective Start: 08/01/24 18:55 Freq: Status: Active Protocol: Document 08/05/24 11:32 [facility] (Rec: 08/05/24 12:33 [facility] [id number]) Patient Questionnaires Oswestry Low Back Index Oswestry Score 26% OP-PT Pain Assessment Location neck Pain Location Details L>R and into skull Pain Aggravating Factors Sitting Other Pain Aggravating Factors look up, looking down extended , cooking, at night PT-OP-J Posture/Palpation/Skin Start: 08/01/24 18:55 Freq: Status: Active Protocol: Document 08/05/24 11:32 [facility] (Rec: 08/05/24 12:33 [facility] [id number]) Posture Evaluation Ricardo Postural Classification System Ricardo Postural Classifications Posterior/Anterior Vertical Compression Test 0 Elbow Flexion Test 0 Lumbar Protective Mechanism Left AP 0 Lumbar Protective Mechanism Right AP 0 Lumbar Protective Mechanism Left PA 0 Lumbar Protective Mechanism Right PA 1 Comments Posture Comments inc kyhphosis, fwd head; L iliac crest higher, mild scoliosis, R scap >L abd and elevated PT-OP-K Range of Motion Start: 08/01/24 18:55 Freq: Status: Active Protocol: Document 08/05/24 11:32 [facility] (Rec: 08/05/24 12:33 [facility] [id number]) Cervical Spine Range of Motion Cervical Spine Active Degrees Flexion 64 Extension 36 Rotation Left 52 Rotation Right 74 Lateral Flexion Left 17 Lateral Flexion Right 18 Comments pain w/SB Lumbar Spine Range of Motion Lumbar Spine Active Percentage Flexion 60 Extension 30 Lateral Flexion Left 50 Lateral Flexion Right 50 Comments 58 deg R rot, L 66 deg-feels in neck; thoracolumbar PT-OP-L Special Tests Start: 08/01/24 18:55 Freq: Status: Active Protocol: Document 08/05/24 11:32 [facility] (Rec: 08/05/24 12:33 [facility] [id number]) Special Tests Cervical Spine Special Tests spurling Test Results neg Tectoral membrane Test Results neg Transverse Ligament Test Results neg Alar Ligament Test Results neg Traction Test Results neg traction and compression cervical and thoracic PT-OP-Q Treatments Start: 08/01/24 18:55 Freq: Status: Active Protocol: Document 08/05/24 11:32 [facility] (Rec: 08/05/24 12:33 [facility] [id number]) Therapeutic Exercises Sitting Exercises stretch Sitting Exercise Name holding pole fwd flex and SB also into ext Side bilateral Reps/Minutes 2 min total Standing Exercises hip abd Side bilateral Equipment Used L2 Reps/Minutes 12 ea Comments max cues posture and motion Other Exercises hip flexor stretches Other Exercise Name 1/2 kneel Side bilateral Reps/Minutes cues to hold 30 sec PT-OP-T Assessment and Plan Start: 08/01/24 18:55 Freq: Status: Active Protocol: Document 08/05/24 11:32 [facility] (Rec: 08/05/24 12:33 [facility] [id number]) Physical Therapy Assessment Rehab Potential Rehabilitation Potential Good Evaluation Complexity Number of Personal Factors/Comorbidities 3 or More Number of Body Systems Impaired 4 or More Clinical Presentation at Evaluation Evolving Impairments Impairments Activity Tolerance,Balance, Functional Activities, Functional Mobility,Gait,Pain, Posture,ROM,Soft Tissue Mobility,Strength Goals postural strength Short Term Goal (STG) Pt will improve VCT to at least 3/5 to show improved alignment STG Duration 09/13 Comb Setter Goal (LTG) Pt will score at least 3/5 on LPM in all planes and EFT to show improved stability. LTG Duration 10/14 ROM Short Term Goal (STG) Pt will be able to do cervical ext to at least 50 deg w/o inc pain STG Duration 09/13 Comb Setter Goal (LTG) Pt will have improved thoracic rotation to at least 70 deg B LTG Duration 10/14 activity Short Term Goal (STG) Pt will be able to prop self in bed for comfort and be educated on use of pillows and towels for propping STG Duration 09/13 Comb Setter Goal (LTG) Pt will be able to sleep through the night and cook w/o inc pain in neck or back LTG Duration 10/14 Assessment Summary Assessment Pt presents w/main c/o L thoracic/ribcage region spasms and neck spasms that are most present at night but also w/ some activities during the day . He does have mild scoliosis postural changes, dec core, inc kyphosis w/fwd head and dec trunk and cervical ROM. He is compliant w/exercises a PT gave him for LB spasms from 7 years ago and may need adjustment w/these exercises. He would benefit from skilled PT to dec pain and improve function. Physical Therapy Plan Frequency and Duration Frequency of Treatment 2x/Week Duration of treatment (weeks) 10 Plan of Care Start Date 08/05/24 Plan of Care End Date 10/14/24 Therapeutic Interventions Therapeutic Interventions Balance Training,Gait Training ,Home Exercise Program,Joint Mobilizations,Manual Therapy, Neuromuscular Re-education, Patient/Caregiver Education, Self-Care/Home Management,Soft Tissue Mobilization,Taping, Therapeutic Activities, Therapeutic Exercises, Vestibular Rehabilitation Modalities Cold Pack/Ice Massage,Electric Stimulation,Hot Packs, Infrared Therapy,Traction- Mechanical,Ultrasound Next Visit Focus/Plan Next Note Type Treatment Note Next Visit Plan ask pt for picture of bed position, sleep position edu, review past PT exercises for form and things that may be repetition, show 1/2 foam roll UE mobility exercises, wall posture, gentle manual to thoracic and cervical region careful w/mobs d/t osteoporosis
--- NOTE | 2024-08-08 12:34 | PT.OTN ---
Current Diagnoses Muscle spasm of back (08/08/24) Other muscle spasm (08/08/24) Personal history of other diseases of the digestive system (08/08/24) Other specified postprocedural states (08/08/24) Physical Therapy Treatment Note PT-OP-A Visit Information Start: 08/01/24 18:55 Freq: Status: Active Protocol: Document 08/08/24 11:32 [facility] (Rec: 08/08/24 12:33 [facility] [id number]) Out-Patient Physical Therapy Visit Information Visit Information Visit Type Treatment Note Visit Note pt in bathroom so late Visit Start Time 11:37 Visit Stop Time 12:15 Visit Number 2 (05/27) Number of SERVICES ACCOUNT MANAGER Visits 0 PT-OP-B Current Condition Start: 08/01/24 18:55 Freq: Status: Active Protocol: Document 08/05/24 11:32 [facility] (Rec: 08/05/24 12:33 [facility] [id number]) Current Condition History of Current Condition Onset Date worse 2 months ago after fall w/hitting head Current Complaints neck and thoracic spasms History of Current Condition 7 or 8 years ago had a spasm on R side and she saw PT and it helped a lot. THe spot now is on the L ribcage. He does see acupuncture for ALTAMIRANO. When this spot gives an issue, he takes a methylcarbonol and that is the only that helps. It is always at night and it is just about every day. Doing work seems beneficial for back. does have osteoporosis. Fell hit forehead about 2 months ago where caught foot on bar and hit ant head. Never bruised but neck, chest and back were in spasm. The chest feels better now and back is better except that one point. Neck is the most disturbing. He is a side sleeper because if he sleeps on his back, a spasm comes on. this has been for a couple years. no neck pain prior to the fall. can massage and give release during the day. does have hx of L shoulder pain and soreness-can't do push up anymore but that was prior to the falls. He has lived w/ALTAMIRANO since an elementary student and was dx w/migraines about 15 years ago. Denies numbness/ tingling in arms, dizziness or lightheadedness. Had a hernia repair B inguinal on Feb 2024 . was in ER 4x after surgery ( bladder infections, UTIs,etc) and had to wear a catheter for 8 weeks. THat brought on spasms at the time too. Has been deconditioned since then. Pt had been told by 2 different surgeons he had a compressed disc and needed sx but pt opted for PT w/success Treatment Goals Patient/Caregiver Goals Be able to sleep through the night and cook w/o pain limiting, PT-OP-C Subjective Start: 08/01/24 18:55 Freq: Status: Active Protocol: Document 08/08/24 11:32 [facility] (Rec: 08/08/24 12:33 [facility] [id number]) OP-PT Subjective Patient Comments Patient Comments Pt had a lot of spasms after IE PT-OP-J Posture/Palpation/Skin Start: 08/01/24 18:55 Freq: Status: Active Protocol: Document 08/05/24 11:32 [facility] (Rec: 08/05/24 12:33 [facility] [id number]) Posture Evaluation [facility] Postural Classification System [facility] Postural Classifications Posterior/Anterior Vertical Compression Test 0 Elbow Flexion Test 0 Lumbar Protective Mechanism Left AP 0 Lumbar Protective Mechanism Right AP 0 Lumbar Protective Mechanism Left PA 0 Lumbar Protective Mechanism Right PA 1 Comments Posture Comments inc kyhphosis, fwd head; L iliac crest higher, mild scoliosis, R scap >L abd and elevated PT-OP-K Range of Motion Start: 08/01/24 18:55 Freq: Status: Active Protocol: Document 08/05/24 11:32 [facility] (Rec: 08/05/24 12:33 [facility] [id number]) Cervical Spine Range of Motion Cervical Spine Active Degrees Flexion 64 Extension 36 Rotation Left 52 Rotation Right 74 Lateral Flexion Left 17 Lateral Flexion Right 18 Comments pain w/SB Lumbar Spine Range of Motion Lumbar Spine Active Percentage Flexion 60 Extension 30 Lateral Flexion Left 50 Lateral Flexion Right 50 Comments 58 deg R rot, L 66 deg-feels in neck; thoracolumbar PT-OP-L Special Tests Start: 08/01/24 18:55 Freq: Status: Active Protocol: Document 08/05/24 11:32 [facility] (Rec: 08/05/24 12:33 [facility] [id number]) Special Tests Cervical Spine Special Tests spurling Test Results neg Tectoral membrane Test Results neg Transverse Ligament Test Results neg Alar Ligament Test Results neg Traction Test Results neg traction and compression cervical and thoracic PT-OP-Q Treatments Start: 08/01/24 18:55 Freq: Status: Active Protocol: Document 08/08/24 11:32 [facility] (Rec: 08/08/24 12:33 [facility] [id number]) Therapeutic Exercises Supine Exercises stretch Supine Exercise Name SKTC and hip flexor stretch buttocks on 1/2 foam roll Side bilateral Equipment Used towel roll in ant hip Reps/Minutes 30 sec x3 ea foam roll Supine Exercise Name 1. B UE flex 2. marches 3. marches w/UE flex 4. Habd UEs 5. side stretches Equipment Used 1/2 foam roll Reps/Minutes 10 min Sidelying Exercises open book Side bilateral Equipment Used 1/2 foam roll under head Reps/Minutes 8 ea Standing Exercises wall push up Side bilateral Reps/Minutes 10 Comments on fists Other Exercises pigeon Side bilateral Reps/Minutes 20 sec quadruped Other Exercise Name bird dog Side bilateral Reps/Minutes 2x10 Comments cues for core engagement and not rot Manual Therapy Treatment Consent Patient gave verbal consent for manual Yes treatment Soft Tissue Mobilization thoracic Body Location paraspinals Mobilization Type Rolling,Strumming Intensity/Depth Superficial Body Position Sitting Joint Mobilizations rib Comments external torsion L rib 6 thoracic Grade II Body Position Sitting Comments PA L T6 and 7 PT-OP-T Assessment and Plan Start: 08/01/24 18:55 Freq: Status: Active Protocol: Document 08/08/24 11:32 [facility] (Rec: 08/08/24 12:33 [facility] [id number]) Physical Therapy Assessment Goals postural strength Short Term Goal (STG) Pt will improve VCT to at least 3/5 to show improved alignment STG Duration 09/13 Sustainability Consultant Goal (LTG) Pt will score at least 3/5 on LPM in all planes and EFT to show improved stability. LTG Duration 10/14 ROM Short Term Goal (STG) Pt will be able to do cervical ext to at least 50 deg w/o inc pain STG Duration 09/13 Sustainability Consultant Goal (LTG) Pt will have improved thoracic rotation to at least 70 deg B LTG Duration 30 activity Short Term Goal (STG) Pt will be able to prop self in bed for comfort and be educated on use of pillows and towels for propping STG Duration 09/13 Fci Goal (LTG) Pt will be able to sleep through the night and cook w/o inc pain in neck or back LTG Duration 10/14 Assessment Summary Assessment Pt did well with progression of exercises w/cues to stay in comfortable range for L shoulder. He does have stiffness in ribcage w/mm tightness and rib 6 was stuck into internal torsion. Physical Therapy Plan Frequency and Duration Frequency of Treatment 2x/Week Duration of treatment (weeks) 10 Plan of Care Start Date 08/05/24 Plan of Care End Date 10/14/24 Next Visit Focus/Plan Next Note Type Treatment Note Next Visit Plan review exercises from last session
--- NOTE | 2024-08-13 12:34 | PT.OTN ---
Current Diagnoses Muscle spasm of back (08/13/24) Other muscle spasm (08/13/24) Personal history of other diseases of the digestive system (08/13/24) Other specified postprocedural states (08/13/24) Physical Therapy Treatment Note PT-OP-A Visit Information Start: 08/01/24 18:55 Freq: Status: Active Protocol: Document 08/13/24 11:32 [facility] (Rec: 08/13/24 12:30 [facility] Laptop) Out-Patient Physical Therapy Visit Information Visit Information Visit Type Treatment Note Visit Start Time 11:33 Visit Stop Time 12:23 Visit Number 3 Number of IT INFRASTRUCTURE CONSULTANT Visits 1 PT-OP-B Current Condition Start: 08/01/24 18:55 Freq: Status: Active Protocol: Document 08/05/24 11:32 [facility] (Rec: 08/05/24 12:33 [facility] [id number]) Current Condition History of Current Condition Onset Date worse 2 months ago after fall w/hitting head Current Complaints neck and thoracic spasms History of Current Condition 7 or 8 years ago had a spasm on R side and she saw PT and it helped a lot. THe spot now is on the L ribcage. He does see acupuncture for ALTAMIRANO. When this spot gives an issue, he takes a methylcarbonol and that is the only that helps. It is always at night and it is just about every day. Doing work seems beneficial for back. does have osteoporosis. Fell hit forehead about 2 months ago where caught foot on bar and hit ant head. Never bruised but neck, chest and back were in spasm. The chest feels better now and back is better except that one point. Neck is the most disturbing. He is a side sleeper because if he sleeps on his back, a spasm comes on. this has been for a couple years. no neck pain prior to the fall. can massage and give release during the day. does have hx of L shoulder pain and soreness-can't do push up anymore but that was prior to the falls. He has lived w/ALTAMIRANO since an elementary student and was dx w/migraines about 15 years ago. Denies numbness/ tingling in arms, dizziness or lightheadedness. Had a hernia repair B inguinal on Feb 2024 . was in ER 4x after surgery ( bladder infections, UTIs,etc) and had to wear a catheter for 8 weeks. THat brought on spasms at the time too. Has been deconditioned since then. Pt had been told by 2 different surgeons he had a compressed disc and needed sx but pt opted for PT w/success Treatment Goals Patient/Caregiver Goals Be able to sleep through the night and cook w/o pain limiting, PT-OP-C Subjective Start: 08/01/24 18:55 Freq: Status: Active Protocol: Document 08/13/24 11:32 [facility] (Rec: 08/13/24 12:30 [facility] Laptop) OP-PT Subjective Patient Comments Patient Comments Patient into session with pictures of his sleep positions, noted increased curve LS area in sidelying, knees lower than hips, no pillow between knees. PT-OP-J Posture/Palpation/Skin Start: 08/01/24 18:55 Freq: Status: Active Protocol: Document 08/05/24 11:32 [facility] (Rec: 08/05/24 12:33 [facility] [id number]) Posture Evaluation [facility] Postural Classification System [facility] Postural Classifications Posterior/Anterior Vertical Compression Test 0 Elbow Flexion Test 0 Lumbar Protective Mechanism Left AP 0 Lumbar Protective Mechanism Right AP 0 Lumbar Protective Mechanism Left PA 0 Lumbar Protective Mechanism Right PA 1 Comments Posture Comments inc kyhphosis, fwd head; L iliac crest higher, mild scoliosis, R scap >L abd and elevated PT-OP-K Range of Motion Start: 08/01/24 18:55 Freq: Status: Active Protocol: Document 08/05/24 11:32 [facility] (Rec: 08/05/24 12:33 [facility] [id number]) Cervical Spine Range of Motion Cervical Spine Active Degrees Flexion 64 Extension 36 Rotation Left 52 Rotation Right 74 Lateral Flexion Left 17 Lateral Flexion Right 18 Comments pain w/SB Lumbar Spine Range of Motion Lumbar Spine Active Percentage Flexion 60 Extension 30 Lateral Flexion Left 50 Lateral Flexion Right 50 Comments 58 deg R rot, L 66 deg-feels in neck; thoracolumbar PT-OP-L Special Tests Start: 08/01/24 18:55 Freq: Status: Active Protocol: Document 08/05/24 11:32 [facility] (Rec: 08/05/24 12:33 [facility] [id number]) Special Tests Cervical Spine Special Tests spurling Test Results neg Tectoral membrane Test Results neg Transverse Ligament Test Results neg Alar Ligament Test Results neg Traction Test Results neg traction and compression cervical and thoracic PT-OP-Q Treatments Start: 08/01/24 18:55 Freq: Status: Active Protocol: Document 08/13/24 11:32 [facility] (Rec: 08/13/24 12:30 [facility] Laptop) Therapeutic Exercises Supine Exercises stretch Supine Exercise Name SKTC and hip flexor stretch buttocks on 1/2 foam roll Equipment Used pool noodle at ant hip Reps/Minutes 30 sec each ex each LE foam roll Supine Exercise Name 1. B UE flex 2. marches 3. marches w/UE flex 4. Habd UEs 5. side stretches Equipment Used 1/2 foam roll Reps/Minutes 1. X 10 Pt reports he already did others at home Sidelying Exercises open book Sidelying Exercise Name Patient reports Standing Exercises wall push up Side bilateral Reps/Minutes 6 Comments on fists tactile cues at scapula Therapeutic Activity Therapeutic Activity wall posture Name initiated with towel then without towel Comments verbal cues to hold posture when stepping away from the wall and for UE swing during ambulation. performed without towel roll with verbal cues to chin tuck and scap squeeze/ dep 10% then hold position when stepping away from wall sidelying positioning Comments folded pillow under head, folded towel thoracic/ LS area , pillow between knees, one pillow under UE, verbal cues for breathing from diaphragm Manual Therapy Treatment Consent Patient gave verbal consent for manual Yes treatment Soft Tissue Mobilization thoracic Body Location paraspinals Mobilization Type Rolling,Strumming Intensity/Depth Superficial Body Position Sitting Joint Mobilizations scapular mobilization Joint bilateral Direction into dep and add Grade III Body Position Sidelying PT-OP-T Assessment and Plan Start: 08/01/24 18:55 Freq: Status: Active Protocol: Document 08/13/24 11:32 [facility] (Rec: 08/13/24 12:30 [facility] Laptop) Physical Therapy Assessment Goals postural strength Short Term Goal (STG) Pt will improve VCT to at least 3/5 to show improved alignment STG Duration 09/13 Residential Goal (LTG) Pt will score at least 3/5 on LPM in all planes and EFT to show improved stability. LTG Duration 10/14 ROM Short Term Goal (STG) Pt will be able to do cervical ext to at least 50 deg w/o inc pain STG Duration 09/13 Supervisor Forming And Tempering Goal (LTG) Pt will have improved thoracic rotation to at least 70 deg B LTG Duration 10/14 activity Short Term Goal (STG) Pt will be able to prop self in bed for comfort and be educated on use of pillows and towels for propping STG Duration 09/13 Residential Goal (LTG) Pt will be able to sleep through the night and cook w/o inc pain in neck or back LTG Duration 10/14 Assessment Summary Assessment Patient reports having no pain end of session, reports stiffness in neck. Good return demonstration for posture check activity. Into session with photos of posture sleeping, left session with pictures of correct positioning on patient's phone . Physical Therapy Plan Frequency and Duration Frequency of Treatment 2x/Week Duration of treatment (weeks) 10 Plan of Care Start Date 08/05/24 Plan of Care End Date 10/14/24 Next Visit Focus/Plan Next Note Type Treatment Note Next Visit Plan Continue HEP review.
--- NOTE | 2024-09-11 18:34 | PT.OTN ---
Current Diagnoses Muscle spasm of back (09/11/24) Other muscle spasm (09/11/24) Personal history of other diseases of the digestive system (09/11/24) Other specified postprocedural states (09/11/24) Physical Therapy Treatment Note PT-OP-A Visit Information Start: 08/01/24 18:55 Freq: Status: Active Protocol: Document 09/11/24 13:06 [facility] (Rec: 09/11/24 18:34 [facility] [id number]) Out-Patient Physical Therapy Visit Information Visit Information Visit Type Progress Note Visit Note Student PT Valerie Maloney participated in treatment session w/PT direct supervision and direction Visit Start Time 13:06 Visit Stop Time 13:46 Visit Number 4 Number of DESIGN ENGINEERING SPECIALIST Visits 0 PT-OP-B Current Condition Start: 08/01/24 18:55 Freq: Status: Active Protocol: Document 08/05/24 11:32 [facility] (Rec: 08/05/24 12:33 [facility] [id number]) Current Condition History of Current Condition Onset Date worse 2 months ago after fall w/hitting head Current Complaints neck and thoracic spasms History of Current Condition 7 or 8 years ago had a spasm on R side and she saw PT and it helped a lot. THe spot now is on the L ribcage. He does see acupuncture for ALTAMIRANO. When this spot gives an issue, he takes a methylcarbonol and that is the only that helps. It is always at night and it is just about every day. Doing work seems beneficial for back. does have osteoporosis. Fell hit forehead about 2 months ago where caught foot on bar and hit ant head. Never bruised but neck, chest and back were in spasm. The chest feels better now and back is better except that one point. Neck is the most disturbing. He is a side sleeper because if he sleeps on his back, a spasm comes on. this has been for a couple years. no neck pain prior to the fall. can massage and give release during the day. does have hx of L shoulder pain and soreness-can't do push up anymore but that was prior to the falls. He has lived w/ALT[place]IR[place]O since an elementary student and was dx w/migraines about 15 years ago. Denies numbness/ tingling in arms, dizziness or lightheadedness. Had a hernia repair B inguinal on Feb 2024 . was in ER 4x after surgery ( bladder infections, UTIs,etc) and had to wear a catheter for 8 weeks. THat brought on spasms at the time too. Has been deconditioned since then. Pt had been told by 2 different surgeons he had a compressed disc and needed sx but pt opted for PT w/success Treatment Goals Patient/Caregiver Goals Be able to sleep through the night and cook w/o pain limiting, PT-OP-C Subjective Start: 08/01/24 18:55 Freq: Status: Active Protocol: Document 09/11/24 13:06 [facility] (Rec: 09/11/24 18:34 [facility] [id number]) OP-PT Subjective Patient Comments Patient Comments Pt reports he still has quite a stiff neck. Moves around a lot at night. Reports mm spasm in trunk has been less. If he is outside working and straining and will have some spasms. Every time he has acupuncture, he has mm spasms. Has been doing exercises about every other day. PT-OP-J Posture/Palpation/Skin Start: 08/01/24 18:55 Freq: Status: Active Protocol: Document 09/11/24 13:06 [facility] (Rec: 09/11/24 18:34 [facility] [id number]) Posture Evaluation [facility] Postural Classification System [facility] Postural Classifications Posterior/Anterior Vertical Compression Test 0 Elbow Flexion Test 2 Lumbar Protective Mechanism Left AP 1 Lumbar Protective Mechanism Right AP 2 Lumbar Protective Mechanism Left PA 1 Lumbar Protective Mechanism Right PA 1 PT-OP-K Range of Motion Start: 08/01/24 18:55 Freq: Status: Active Protocol: Document 09/11/24 13:06 [facility] (Rec: 09/11/24 18:34 [facility] [id number]) Cervical Spine Range of Motion Cervical Spine Active Degrees Flexion 63 Extension 45 Rotation Left 30 Rotation Right 42 Lateral Flexion Left 15 Lateral Flexion Right 25 Comments hits brick wall w/SB Lumbar Spine Range of Motion Lumbar Spine Active Percentage Comments 55deg R rot, L 37deg- thoracolumbar PT-OP-L Special Tests Start: 08/01/24 18:55 Freq: Status: Active Protocol: Document 08/05/24 11:32 [facility] (Rec: 08/05/24 12:33 [facility] [id number]) Special Tests Cervical Spine Special Tests spurling Test Results neg Tectoral membrane Test Results neg Transverse Ligament Test Results neg Alar Ligament Test Results neg Traction Test Results neg traction and compression cervical and thoracic PT-OP-Q Treatments Start: 08/01/24 18:55 Freq: Status: Active Protocol: Document 09/11/24 13:06 [facility] (Rec: 09/11/24 18:34 [facility] [id number]) Manual Therapy Treatment Consent Patient gave verbal consent for manual Yes treatment Soft Tissue Mobilization cervical Body Location UT, LS, scalenes Mobilization Type Rolling Comments w/SB and rot thoracic Body Location paraspinals Mobilization Type Rolling,Strumming Intensity/Depth Superficial Body Position Sitting Joint Mobilizations thoracic Grade II Comments transverse L T7 PT-OP-T Assessment and Plan Start: 08/01/24 18:55 Freq: Status: Active Protocol: Document 09/11/24 13:06 [facility] (Rec: 09/11/24 18:34 [facility] [id number]) Physical Therapy Assessment Goals postural strength Short Term Goal (STG) Pt will improve VCT to at least 3/5 to show improved alignment 09/11-improving STG Duration 09/13 Country Printer Apprentice Goal (LTG) Pt will score at least 3/5 on LPM in all planes and EFT to show improved stability. 09/11-improving LTG Duration 10/14 ROM Short Term Goal (STG) Pt will be able to do cervical ext to at least 50 deg w/o inc pain 09/11-no pain and improved to 45 STG Duration 09/13 Halfway Goal (LTG) Pt will have improved thoracic rotation to at least 70 deg B 09/11-dec today LTG Duration 10/14 activity Short Term Goal (STG) Pt will be able to prop self in bed for comfort and be educated on use of pillows and towels for propping 09/11-pt working on propping in bed STG Duration 09/13 Halfway Goal (LTG) Pt will be able to sleep through the night and cook w/o inc pain in neck or back 09/11-wakes up every 90 min but not d/t pain; tired back at the kitchen counter LTG Duration 10/14 Assessment Summary Assessment Pt making some progress w/PT with improved ROM in some directions while not others. Has not been seen in about of month d/t a planned vacation. Cont PT for postural strength, dec pain and improved mobility
--- NOTE | 2024-09-13 16:42 | PT.OTN ---
Current Diagnoses Muscle spasm of back (09/13/24) Other muscle spasm (09/13/24) Personal history of other diseases of the digestive system (09/13/24) Other specified postprocedural states (09/13/24) Physical Therapy Treatment Note PT-OP-A Visit Information Start: 08/01/24 18:55 Freq: Status: Active Protocol: Document 09/13/24 13:00 AB (Rec: 09/13/24 16:42 AB Laptop) Out-Patient Physical Therapy Visit Information Visit Information Visit Type Treatment Note Visit Start Time 13:50 Visit Stop Time 14:33 Visit Number 5 (PN by 10/12/2024) Number of ENVIRONMENTAL STUDIES DEPARTMENT CHAIR Visits 1 PT-OP-B Current Condition Start: 08/01/24 18:55 Freq: Status: Active Protocol: Document 08/05/24 11:32 [facility] (Rec: 08/05/24 12:33 [facility] [id number]) Current Condition History of Current Condition Onset Date worse 2 months ago after fall w/hitting head Current Complaints neck and thoracic spasms History of Current Condition 7 or 8 years ago had a spasm on R side and she saw PT and it helped a lot. THe spot now is on the L ribcage. He does see acupuncture for ALTAMIRANO. When this spot gives an issue, he takes a methylcarbonol and that is the only that helps. It is always at night and it is just about every day. Doing work seems beneficial for back. does have osteoporosis. Fell hit forehead about 2 months ago where caught foot on bar and hit ant head. Never bruised but neck, chest and back were in spasm. The chest feels better now and back is better except that one point. Neck is the most disturbing. He is a side sleeper because if he sleeps on his back, a spasm comes on. this has been for a couple years. no neck pain prior to the fall. can massage and give release during the day. does have hx of L shoulder pain and soreness-can't do push up anymore but that was prior to the falls. He has lived w/ALTAMIRANO since an elementary student and was dx w/migraines about 15 years ago. Denies numbness/ tingling in arms, dizziness or lightheadedness. Had a hernia repair B inguinal on Feb 2024 . was in ER 4x after surgery ( bladder infections, UTIs,etc) and had to wear a catheter for 8 weeks. THat brought on spasms at the time too. Has been deconditioned since then. Pt had been told by 2 different surgeons he had a compressed disc and needed sx but pt opted for PT w/success Treatment Goals Patient/Caregiver Goals Be able to sleep through the night and cook w/o pain limiting, PT-OP-C Subjective Start: 08/01/24 18:55 Freq: Status: Active Protocol: Document 09/13/24 13:00 AB (Rec: 09/13/24 16:42 AB Laptop) OP-PT Subjective Patient Comments Patient Comments Patient reports the neck is much better post previous session, still has a little stiffness. Patient reports he has an exercise routine he does every other day and does side planks, and got a pop on the side of his ribcage for 2 weeks, also during a hip stretch got a pop on the right side of ribcage. Patient reports the initial pain went away quickly, and now is only painful if he touches the spots. PT-OP-J Posture/Palpation/Skin Start: 08/01/24 18:55 Freq: Status: Active Protocol: Document 09/11/24 13:06 [facility] (Rec: 09/11/24 18:34 [facility] [id number]) Posture Evaluation Ricardo Postural Classification System Ricardo Postural Classifications Posterior/Anterior Vertical Compression Test 0 Elbow Flexion Test 2 Lumbar Protective Mechanism Left AP 1 Lumbar Protective Mechanism Right AP 2 Lumbar Protective Mechanism Left PA 1 Lumbar Protective Mechanism Right PA 1 PT-OP-K Range of Motion Start: 08/01/24 18:55 Freq: Status: Active Protocol: Document 09/11/24 13:06 [facility] (Rec: 09/11/24 18:34 [facility] [id number]) Cervical Spine Range of Motion Cervical Spine Active Degrees Flexion 63 Extension 45 Rotation Left 30 Rotation Right 42 Lateral Flexion Left 15 Lateral Flexion Right 25 Comments hits brick wall w/SB Lumbar Spine Range of Motion Lumbar Spine Active Percentage Comments 55deg R rot, L 37deg- thoracolumbar PT-OP-L Special Tests Start: 08/01/24 18:55 Freq: Status: Active Protocol: Document 08/05/24 11:32 [facility] (Rec: 08/05/24 12:33 [facility] [id number]) Special Tests Cervical Spine Special Tests spurling Test Results neg Tectoral membrane Test Results neg Transverse Ligament Test Results neg Alar Ligament Test Results neg Traction Test Results neg traction and compression cervical and thoracic PT-OP-Q Treatments Start: 08/01/24 18:55 Freq: Status: Active Protocol: Document 09/13/24 13:00 AB (Rec: 09/13/24 16:42 AB Laptop) Therapeutic Exercises Supine Exercises CS rotation Supine Exercise Name on occipital float Reps/Minutes 2 min Comments verbal cues to perform in pain free range stretch Supine Exercise Name SKTC and hip flexor stretch buttocks Reps/Minutes 30 sec each ex each LE Comments without pool noodle, reports no pinching/Pt ed discontinue use of pool nood Sidelying Exercises side plank Reps/Minutes on feet not jonas,right micah reports rib discomfort, 30 sec on knees bilateral Comments monitored for pain open book Reps/Minutes X 10 each side Comments verbal cues Manual Therapy Treatment Consent Patient gave verbal consent for manual Yes treatment Soft Tissue Mobilization cervical Body Location UT, LS, scalenes, CS Parspinals Mobilization Type Rolling thoracic Body Location paraspinals Mobilization Type Rolling,Strumming Intensity/Depth Superficial Body Position Sitting Joint Mobilizations scapular mobilization Joint bilateral Direction into dep and add Grade III Body Position Sidelying PT-OP-T Assessment and Plan Start: 08/01/24 18:55 Freq: Status: Active Protocol: Document 09/13/24 13:00 AB (Rec: 09/13/24 16:42 AB Laptop) Physical Therapy Assessment Goals postural strength Short Term Goal (STG) Pt will improve VCT to at least 3/5 to show improved alignment 09/11-improving STG Duration 09/13 [facility] Goal (LTG) Pt will score at least 3/5 on LPM in all planes and EFT to show improved stability. 09/11-improving LTG Duration 10/14 ROM Short Term Goal (STG) Pt will be able to do cervical ext to at least 50 deg w/o inc pain 09/11-no pain and improved to 45 STG Duration 09/13 Research Scientist Goal (LTG) Pt will have improved thoracic rotation to at least 70 deg B 09/11-dec today LTG Duration 10/14 activity Short Term Goal (STG) Pt will be able to prop self in bed for comfort and be educated on use of pillows and towels for propping 09/11-pt working on propping in bed STG Duration 09/13 Research Scientist Goal (LTG) Pt will be able to sleep through the night and cook w/o inc pain in neck or back 09/11-wakes up every 90 min but not d/t pain; tired back at the kitchen counter LTG Duration 10/14 Assessment Summary Assessment Patient able to perform side plank on knees without increased pain, but discomfort right ribs with side plank on feet persists. Physical Therapy Plan Frequency and Duration Frequency of Treatment 2x/Week Duration of treatment (weeks) 10 Plan of Care Start Date 08/05/24 Plan of Care End Date 10/14/24 Therapeutic Interventions Therapeutic Interventions Balance Training,Gait Training ,Home Exercise Program,Joint Mobilizations,Manual Therapy, Neuromuscular Re-education, Patient/Caregiver Education, Self-Care/Home Management,Soft Tissue Mobilization,Taping, Therapeutic Activities, Therapeutic Exercises, Vestibular Rehabilitation Modalities Cold Pack/Ice Massage,Electric Stimulation,Hot Packs, Infrared Therapy,Traction- Mechanical,Ultrasound Next Visit Focus/Plan Next Note Type Treatment Note Next Visit Plan Assess jonas to side plank on feet. Possibly CS rotation AROM in quadruped
--- NOTE | 2024-10-14 17:56 | PT.OTN ---
Current Diagnoses Muscle spasm of back (10/14/24) Other muscle spasm (10/14/24) Personal history of other diseases of the digestive system (10/14/24) Other specified postprocedural states (10/14/24) Physical Therapy Treatment Note PT-OP-A Visit Information Start: 08/01/24 18:55 Freq: Status: Active Protocol: Document 10/14/24 14:32 [facility] (Rec: 10/14/24 14:33 [facility] [id number]) Out-Patient Physical Therapy Visit Information Visit Information Visit Type Progress Note Visit Start Time 14:35 Visit Stop Time 15:15 Visit Number 6 (PN by 11/13) Number of OFFICIAL COURT INTERPRETER Visits 0 PT-OP-B Current Condition Start: 08/01/24 18:55 Freq: Status: Active Protocol: Document 08/05/24 11:32 [facility] (Rec: 08/05/24 12:33 [facility] [id number]) Current Condition History of Current Condition Onset Date worse 2 months ago after fall w/hitting head Current Complaints neck and thoracic spasms History of Current 7 or 8 years ago had a spasm on R side and she saw PT Condition and it helped a lot. THe spot now is on the L ribcage. He does see acupuncture for ALTAMIRANO. When this spot gives an issue, he takes a methylcarbonol and that is the only that helps. It is always at night and it is just about every day. Doing work seems beneficial for back. does have osteoporosis. Fell hit forehead about 2 months ago where caught foot on bar and hit ant head. Never bruised but neck, chest and back were in spasm. The chest feels better now and back is better except that one point. Neck is the most disturbing. He is a side sleeper because if he sleeps on his back, a spasm comes on. this has been for a couple years. no neck pain prior to the fall. can massage and give release during the day. does have hx of L shoulder pain and soreness-can't do push up anymore but that was prior to the falls. He has lived w/ALTAMIRANO since an elementary student and was dx w/migraines about 15 years ago. Denies numbness/tingling in arms, dizziness or lightheadedness. Had a hernia repair B inguinal on Feb 2024. was in ER 4x after surgery (bladder infections, UTIs,etc) and had to wear a catheter for 8 weeks. THat brought on spasms at the time too. Has been deconditioned since then. Pt had been told by 2 different surgeons he had a compressed disc and needed sx but pt opted for PT w/success Treatment Goals Patient/Caregiver Be able to sleep through the night and cook w/o pain Goals limiting, PT-OP-C Subjective Start: 08/01/24 18:55 Freq: Status: Active Protocol: Document 10/14/24 14:32 [facility] (Rec: 10/14/24 14:34 [id number] OP-PT Subjective Patient Comments Patient Comments pt reports still getting spasms at lower thoracic and into L lat side. The one nasty spot in the back is better. Still feels stiff in the neck. He has slept in the van the past month and that isn't as good of a position. when neck stiffness gets bad, it brings on a ALTAMIRANO. R UT mm get tight and occasionally will take a methycarbanol PT-OP-J Posture/Palpation/Skin Start: 08/01/24 18:55 Freq: Status: Active Protocol: Document 10/14/24 14:32 [facility] (Rec: 10/14/24 14:34 [id number] Posture Evaluation Ricardo Postural Classification System Ricardo Postural Posterior/Anterior Classifications Vertical Compression 2 Test Elbow Flexion Test 3 Lumbar Protective 3 Mechanism Left AP Lumbar Protective 2 Mechanism Right AP Lumbar Protective 2 Mechanism Left PA Lumbar Protective 3 Mechanism Right PA PT-OP-K Range of Motion Start: 08/01/24 18:55 Freq: Status: Active Protocol: Document 10/14/24 14:32 [facility] (Rec: 10/14/24 14:34 [id number][facility] Cervical Spine Range of Motion Cervical Spine Active Degrees Testing Position Sitting Flexion 66 Extension 47 Rotation Left 48 Rotation Right 52 Lateral Flexion Left 22 Lateral Flexion 27 Right Lumbar Spine Range of Motion Lumbar Spine Active Percentage Comments 47deg R rot, L 44deg- thoracolumbar PT-OP-L Special Tests Start: 08/01/24 18:55 Freq: Status: Active Protocol: Document 08/05/24 11:32 [facility] (Rec: 08/05/24 12:33 [facility] [id number]) Special Tests Cervical Spine Special Tests spurling Test Results neg Tectoral membrane Test Results neg Transverse Ligament Test Results neg Alar Ligament Test Results neg Traction Test Results neg traction and compression cervical and thoracic PT-OP-Q Treatments Start: 08/01/24 18:55 Freq: Status: Active Protocol: Document 10/14/24 14:32 [facility] (Rec: 10/14/24 14:33 [facility] [id number]) Therapeutic Exercises Sitting Exercises ROM Sitting Exercise cervical AROM and thoracic ROM Name Side bilateral stretch Sitting Exercise UT stretch quick review Name Side bilateral Manual Therapy Treatment Soft Tissue Mobilization abdomen Comments 1. OSFM fascia above stomach w/LTR 2. hepatogastric ligament 3. L triangular ligament OSFM w/trunk ext and L rot cervical Body Location R UT Mobilization Type Rolling Intensity/Depth Moderate Body Position Sitting PT-OP-T Assessment and Plan Start: 08/01/24 18:55 Freq: Status: Active Protocol: Document 10/14/24 14:32 [facility] (Rec: 10/14/24 14:33 [facility] [id number]) Physical Therapy Assessment Goals postural strength Short Term Goal (STG Pt will improve VCT to at least 3/5 to show improved ) alignment 09/11-improving 10/14-2/ improved STG Duration 11/08 Trimmer Sorter Goal (LTG) Pt will score at least 3/5 on LPM in all planes and EFT to show improved stability. 09/11-improving 10/14-improving LTG Duration 12/09 ROM Short Term Goal (STG Pt will be able to do cervical ext to at least 50 deg w ) /o inc pain 09/11-no pain and improved to 45 10/14-47 no pain STG Duration 11/08 Trimmer Sorter Goal (LTG) Pt will have improved thoracic rotation to at least 70 deg B 09/11-dec today 10/14-improved and inc further after manual LTG Duration 12/09 activity Short Term Goal (STG Pt will be able to prop self in bed for comfort and be ) educated on use of pillows and towels for propping 09/11-pt working on propping in bed STG Duration achieved 10/14 Shelter Goal (LTG) Pt will be able to sleep through the night and cook w/o inc pain in neck or back 09/11-wakes up every 90 min but not d/t pain; tired back at the kitchen counter 10/04-wakes up in the night but most of the time not d/t pain-occ gets pain but not the sharp one. LTG Duration 12/09 Assessment Summary Assessment Pt has made good progress with PT with improved strength, posture and ROM and overall decreased pain but does note still some neck and thoracic pain/ tightness that is limiting. He made improvements of >10 deg rotation of thoracic spine and cervical spine after manual. He would benefit from cont PT for dec pain and improving function. Physical Therapy Plan Frequency and Duration Frequency of 1-2x/wk Treatment Duration of 8 treatment (weeks) Plan of Care Start 10/14/24 Date Plan of Care End 12/09/24 Date Therapeutic Interventions Therapeutic Balance Training,Gait Training,Home Exercise Program, Interventions Joint Mobilizations,Manual Therapy,Neuromuscular Re- education,Patient/Caregiver Education,Self-Care/Home Management,Soft Tissue Mobilization,Taping,Therapeutic Activities,Therapeutic Exercises,Vestibular Rehabilitation Modalities Cold Pack/Ice Massage,Electric Stimulation,Hot Packs, Infrared Therapy,Traction- Mechanical,Ultrasound Next Visit Focus/Plan Next Note Type Treatment Note Next Visit Plan Assess jonas to side plank on feet. cont to work on visceral restrictions and postural restrictions. work on neck mobility, train neck stretches prn
--- NOTE | 2024-10-25 09:47 | PT.OTN ---
Addendum entered and electronically signed by Georgina Ramirez 10/25/24 15:57: X10 in standing for isometric reactive not 410 Original Note: Current Diagnoses Muscle spasm of back (10/25/24) Other muscle spasm (10/25/24) Personal history of other diseases of the digestive system (10/25/24) Other specified postprocedural states (10/25/24) Physical Therapy Treatment Note PT-OP-A Visit Information Start: 08/01/24 18:55 Freq: Status: Active Protocol: Document 10/25/24 09:03 AB (Rec: 10/25/24 09:47 AB [id number]) Out-Patient Physical Therapy Visit Information Visit Information Visit Type Treatment Note Visit Start Time 09:04 Visit Stop Time 09:46 Visit Number 7 (PN by 11/13) Number of CURTAIN FELLER BLINDSTITCH Visits 1 PT-OP-B Current Condition Start: 08/01/24 18:55 Freq: Status: Active Protocol: Document 08/05/24 11:32 [facility] (Rec: 08/05/24 12:33 [facility] [id number]) Current Condition History of Current Condition Onset Date worse 2 months ago after fall w/hitting head Current Complaints neck and thoracic spasms History of Current 7 or 8 years ago had a spasm on R side and she saw PT Condition and it helped a lot. THe spot now is on the L ribcage. He does see acupuncture for ALTAMIRANO. When this spot gives an issue, he takes a methylcarbonol and that is the only that helps. It is always at night and it is just about every day. Doing work seems beneficial for back. does have osteoporosis. Fell hit forehead about 2 months ago where caught foot on bar and hit ant head. Never bruised but neck, chest and back were in spasm. The chest feels better now and back is better except that one point. Neck is the most disturbing. He is a side sleeper because if he sleeps on his back, a spasm comes on. this has been for a couple years. no neck pain prior to the fall. can massage and give release during the day. does have hx of L shoulder pain and soreness-can't do push up anymore but that was prior to the falls. He has lived w/ALTAMIRANO since an elementary student and was dx w/migraines about 15 years ago. Denies numbness/tingling in arms, dizziness or lightheadedness. Had a hernia repair B inguinal on Feb 2024. was in ER 4x after surgery (bladder infections, UTIs,etc) and had to wear a catheter for 8 weeks. THat brought on spasms at the time too. Has been deconditioned since then. Pt had been told by 2 different surgeons he had a compressed disc and needed sx but pt opted for PT w/success Treatment Goals Patient/Caregiver Be able to sleep through the night and cook w/o pain Goals limiting, PT-OP-C Subjective Start: 08/01/24 18:55 Freq: Status: Active Protocol: Document 10/25/24 09:03 AB (Rec: 10/25/24 09:47 [id number]) OP-PT Subjective Patient Comments Patient Comments Patient reports back has been surprisingly good, but does get a spasm occasionally into neck. Patient rates neck pain 0/10 start of session. PT-OP-J Posture/Palpation/Skin Start: 08/01/24 18:55 Freq: Status: Active Protocol: Document 10/14/24 14:32 [facility] (Rec: 10/14/24 14:34 [facility] [id number]) Posture Evaluation Ricardo Postural Classification System Ricardo Postural Posterior/Anterior Classifications Vertical Compression 2 Test Elbow Flexion Test 3 Lumbar Protective 3 Mechanism Left AP Lumbar Protective 2 Mechanism Right AP Lumbar Protective 2 Mechanism Left PA Lumbar Protective 3 Mechanism Right PA PT-OP-K Range of Motion Start: 08/01/24 18:55 Freq: Status: Active Protocol: Document 10/14/24 14:32 [facility] (Rec: 10/14/24 14:34 [facility] [id number]) Cervical Spine Range of Motion Cervical Spine Active Degrees Testing Position Sitting Flexion 66 Extension 47 Rotation Left 48 Rotation Right 52 Lateral Flexion Left 22 Lateral Flexion 27 Right Lumbar Spine Range of Motion Lumbar Spine Active Percentage Comments 47deg R rot, L 44deg- thoracolumbar PT-OP-L Special Tests Start: 08/01/24 18:55 Freq: Status: Active Protocol: Document 08/05/24 11:32 [facility] (Rec: 08/05/24 12:33 [facility] [id number]) Special Tests Cervical Spine Special Tests spurling Test Results neg Tectoral membrane Test Results neg Transverse Ligament Test Results neg Alar Ligament Test Results neg Traction Test Results neg traction and compression cervical and thoracic PT-OP-Q Treatments Start: 08/01/24 18:55 Freq: Status: Active Protocol: Document 10/25/24 09:03 AB (Rec: 10/25/24 09:47 AB [id number]) Therapeutic Exercises Supine Exercises CS rotation Supine Exercise Name on occipital float Reps/Minutes 2 min Comments verbal cues to perform in pain free range Sidelying Exercises open book Reps/Minutes X each side Comments verbal cues Standing Exercises deep neck flexor isometric reactive Standing Exercise eyes closed band held in hands Name Side bilateral Resistance Level one band Reps/Minutes X10 seated X 410standing Comments verbal and visual cues Manual Therapy Treatment Consent Patient gave verbal Yes consent for manual treatment Soft Tissue Mobilization bilateral pec Mobilization Type Cross-Friction,Rolling cervical Body Location R>L UT scalenes CS paraspinals Mobilization Type Cross-Friction,Rolling,Sustained Pressure Intensity/Depth Moderate Body Position Sitting PT-OP-T Assessment and Plan Start: 08/01/24 18:55 Freq: Status: Active Protocol: Document 10/25/24 09:03 AB (Rec: 10/25/24 09:47 AB [id number]) Physical Therapy Assessment Goals postural strength Short Term Goal (STG Pt will improve VCT to at least 3/5 to show improved ) alignment 09/11-improving 10/14-2/ improved STG Duration 11/08 Customer Care Team Coach Goal (LTG) Pt will score at least 3/5 on LPM in all planes and EFT to show improved stability. 09/11-improving 10/14-improving LTG Duration 12/09 ROM Short Term Goal (STG Pt will be able to do cervical ext to at least 50 deg w ) /o inc pain 09/11-no pain and improved to 45 10/14-47 no pain STG Duration 11/08 Customer Care Team Coach Goal (LTG) Pt will have improved thoracic rotation to at least 70 deg B 09/11-dec today 10/14-improved and inc further after manual LTG Duration 12/09 activity Short Term Goal (STG Pt will be able to prop self in bed for comfort and be ) educated on use of pillows and towels for propping 09/11-pt working on propping in bed STG Duration achieved 10/14 Intermediate Goal (LTG) Pt will be able to sleep through the night and cook w/o inc pain in neck or back 09/11-wakes up every 90 min but not d/t pain; tired back at the kitchen counter 10/04-wakes up in the night but most of the time not d/t pain-occ gets pain but not the sharp one. LTG Duration 12/09 Assessment Summary Assessment Patient reports the neck feels real good end of session . Physical Therapy Plan Frequency and Duration Frequency of 1-2x/wk Treatment Duration of 8 treatment (weeks) Plan of Care Start 10/14/24 Date Plan of Care End 12/09/24 Date Next Visit Focus/Plan Next Note Type Treatment Note Next Visit Plan cont to work on visceral restrictions and postural restrictions. work on neck mobility, train neck stretches prn
--- NOTE | 2024-11-08 14:43 | PT.OTN ---
Current Diagnoses Muscle spasm of back (11/08/24) Other muscle spasm (11/08/24) Personal history of other diseases of the digestive system (11/08/24) Other specified postprocedural states (11/08/24) Physical Therapy Treatment Note PT-OP-A Visit Information Start: 08/01/24 18:55 Freq: Status: Active Protocol: Document 11/08/24 13:46 AB (Rec: 11/08/24 14:42 AB [id number]) Out-Patient Physical Therapy Visit Information Visit Information Visit Type Treatment Note Visit Start Time 13:50 Visit Stop Time 14:35 Visit Number 8 (PN by 11/13) Number of LITERACY CONSULTANT Visits 2 PT-OP-B Current Condition Start: 08/01/24 18:55 Freq: Status: Active Protocol: Document 08/05/24 11:32 [facility] (Rec: 08/05/24 12:33 [facility] [id number]) Current Condition History of Current Condition Onset Date worse 2 months ago after fall w/hitting head Current Complaints neck and thoracic spasms History of Current 7 or 8 years ago had a spasm on R side and she saw PT Condition and it helped a lot. THe spot now is on the L ribcage. He does see acupuncture for ALTAMIRANO. When this spot gives an issue, he takes a methylcarbonol and that is the only that helps. It is always at night and it is just about every day. Doing work seems beneficial for back. does have osteoporosis. Fell hit forehead about 2 months ago where caught foot on bar and hit ant head. Never bruised but neck, chest and back were in spasm. The chest feels better now and back is better except that one point. Neck is the most disturbing. He is a side sleeper because if he sleeps on his back, a spasm comes on. this has been for a couple years. no neck pain prior to the fall. can massage and give release during the day. does have hx of L shoulder pain and soreness-can't do push up anymore but that was prior to the falls. He has lived w/ALTAMIRANO since an elementary student and was dx w/migraines about 15 years ago. Denies numbness/tingling in arms, dizziness or lightheadedness. Had a hernia repair B inguinal on Feb 2024. was in ER 4x after surgery (bladder infections, UTIs,etc) and had to wear a catheter for 8 weeks. THat brought on spasms at the time too. Has been deconditioned since then. Pt had been told by 2 different surgeons he had a compressed disc and needed sx but pt opted for PT w/success Treatment Goals Patient/Caregiver Be able to sleep through the night and cook w/o pain Goals limiting, PT-OP-C Subjective Start: 08/01/24 18:55 Freq: Status: Active Protocol: Document 11/08/24 13:46 AB (Rec: 11/08/24 14:42 AB [id number]) OP-PT Subjective Patient Comments Patient Comments Patient reports he is getting sporadic spasms, attributes to working on and designing to put an elevator on the side of his home. Patient reports having pain driving over here. AROM CS rotation less than 30 deg with grimacing L and right. PT-OP-J Posture/Palpation/Skin Start: 08/01/24 18:55 Freq: Status: Active Protocol: Document 10/14/24 14:32 [facility] (Rec: 10/14/24 14:34 [facility] [id number]) Posture Evaluation [facility] Postural Classification System Ricardo Postural Posterior/Anterior Classifications Vertical Compression 2 Test Elbow Flexion Test 3 Lumbar Protective 3 Mechanism Left AP Lumbar Protective 2 Mechanism Right AP Lumbar Protective 2 Mechanism Left PA Lumbar Protective 3 Mechanism Right PA PT-OP-K Range of Motion Start: 08/01/24 18:55 Freq: Status: Active Protocol: Document 10/14/24 14:32 [facility] (Rec: 10/14/24 14:34 [facility] [id number]) Cervical Spine Range of Motion Cervical Spine Active Degrees Testing Position Sitting Flexion 66 Extension 47 Rotation Left 48 Rotation Right 52 Lateral Flexion Left 22 Lateral Flexion 27 Right Lumbar Spine Range of Motion Lumbar Spine Active Percentage Comments 47deg R rot, L 44deg- thoracolumbar PT-OP-L Special Tests Start: 08/01/24 18:55 Freq: Status: Active Protocol: Document 08/05/24 11:32 [facility] (Rec: 08/05/24 12:33 [facility] [id number]) Special Tests Cervical Spine Special Tests spurling Test Results neg Tectoral membrane Test Results neg Transverse Ligament Test Results neg Alar Ligament Test Results neg Traction Test Results neg traction and compression cervical and thoracic PT-OP-Q Treatments Start: 08/01/24 18:55 Freq: Status: Active Protocol: Document 11/08/24 13:46 AB (Rec: 11/08/24 14:42 AB [id number]) Therapeutic Exercises Supine Exercises CS rotation Supine Exercise Name on occipital float Reps/Minutes 3 min Comments verbal cues to perform in pain free range Sidelying Exercises open book Reps/Minutes X8 each side Comments verbal cues Sitting Exercises scapular retraction Reps/Minutes X10 Comments verbal and visual cues stretch Sitting Exercise UT stretch post manual Name Side bilateral Reps/Minutes 60 sec each side X 2 Manual Therapy Treatment Consent Patient gave verbal Yes consent for manual treatment Soft Tissue Mobilization cervical Body Location R>L UT scalenes CS paraspinals Mobilization Type Cross-Friction,Rolling,Sustained Pressure Intensity/Depth Moderate Body Position Sitting Joint Mobilizations scapular mobilization Joint bilateral Direction into dep and add Grade III Body Position Sidelying Taping CS Body Location CS Comments Y for posture I strip along paraspinals and I strips from scapula to make a Y and one I to unload UT one for levator scap L PT-OP-T Assessment and Plan Start: 08/01/24 18:55 Freq: Status: Active Protocol: Document 11/08/24 13:46 AB (Rec: 11/08/24 14:42 AB [id number]) Physical Therapy Assessment Goals postural strength Short Term Goal (STG Pt will improve VCT to at least 3/5 to show improved ) alignment 09/11-improving 10/14-2/ improved STG Duration 11/08 Halfway Goal (LTG) Pt will score at least 3/5 on LPM in all planes and EFT to show improved stability. 09/11-improving 10/14-improving LTG Duration 12/09 ROM Short Term Goal (STG Pt will be able to do cervical ext to at least 50 deg w ) /o inc pain 09/11-no pain and improved to 45 10/14-47 no pain STG Duration 11/08 Play Back Operator Goal (LTG) Pt will have improved thoracic rotation to at least 70 deg B 09/11-dec today 10/14-improved and inc further after manual LTG Duration 12/09 activity Short Term Goal (STG Pt will be able to prop self in bed for comfort and be ) educated on use of pillows and towels for propping 09/11-pt working on propping in bed STG Duration achieved 10/14 Play Back Operator Goal (LTG) Pt will be able to sleep through the night and cook w/o inc pain in neck or back 09/11-wakes up every 90 min but not d/t pain; tired back at the kitchen counter 10/04-wakes up in the night but most of the time not d/t pain-occ gets pain but not the sharp one. LTG Duration 12/09 Assessment Summary Assessment Tape for levator scap and UT removed due to dec AROM CS rotation, with Y strip in place AROM greater than 50% with patient reporting less pain and able to move better than start of session. Physical Therapy Plan Frequency and Duration Frequency of 1-2x/wk Treatment Duration of 8 treatment (weeks) Plan of Care Start 10/14/24 Date Plan of Care End 12/09/24 Date Next Visit Focus/Plan Next Note Type Progress Note Next Visit Plan cont to work on visceral restrictions and postural restrictions. work on neck mobility, train neck stretches prn
--- NOTE | 2024-11-13 18:15 | PT.OTN ---
Current Diagnoses Muscle spasm of back (11/13/24) Other muscle spasm (11/13/24) Personal history of other diseases of the digestive system (11/13/24) Other specified postprocedural states (11/13/24) Physical Therapy Treatment Note PT-OP-A Visit Information Start: 08/01/24 18:55 Freq: Status: Active Protocol: Document 11/13/24 13:51 [facility] (Rec: 11/13/24 16:19 [facility] [id number]) Out-Patient Physical Therapy Visit Information Visit Information Visit Type Discharge Summary Visit Start Time 13:51 Visit Stop Time 14:31 Visit Number 9 Number of SECOND OFFICER Visits 0 PT-OP-B Current Condition Start: 08/01/24 18:55 Freq: Status: Active Protocol: Document 08/05/24 11:32 [facility] (Rec: 08/05/24 12:33 [facility] [id number]) Current Condition History of Current Condition Onset Date worse 2 months ago after fall w/hitting head Current Complaints neck and thoracic spasms History of Current 7 or 8 years ago had a spasm on R side and she saw PT Condition and it helped a lot. THe spot now is on the L ribcage. He does see acupuncture for ALTAMIRANO. When this spot gives an issue, he takes a methylcarbonol and that is the only that helps. It is always at night and it is just about every day. Doing work seems beneficial for back. does have osteoporosis. Fell hit forehead about 2 months ago where caught foot on bar and hit ant head. Never bruised but neck, chest and back were in spasm. The chest feels better now and back is better except that one point. Neck is the most disturbing. He is a side sleeper because if he sleeps on his back, a spasm comes on. this has been for a couple years. no neck pain prior to the fall. can massage and give release during the day. does have hx of L shoulder pain and soreness-can't do push up anymore but that was prior to the falls. He has lived w/ALTAMIRANO since an elementary student and was dx w/migraines about 15 years ago. Denies numbness/tingling in arms, dizziness or lightheadedness. Had a hernia repair B inguinal on Feb 2024. was in ER 4x after surgery (bladder infections, UTIs,etc) and had to wear a catheter for 8 weeks. THat brought on spasms at the time too. Has been deconditioned since then. Pt had been told by 2 different surgeons he had a compressed disc and needed sx but pt opted for PT w/success Treatment Goals Patient/Caregiver Be able to sleep through the night and cook w/o pain Goals limiting, PT-OP-C Subjective Start: 08/01/24 18:55 Freq: Status: Active Protocol: Document 11/13/24 13:51 [facility] (Rec: 11/13/24 16:19 [facility] [id number]) OP-PT Subjective Patient Comments Patient Comments Pt felt great after last session. he has done a lot of work last few days. PT-OP-J Posture/Palpation/Skin Start: 08/01/24 18:55 Freq: Status: Active Protocol: Document 11/13/24 13:51 [facility] (Rec: 11/13/24 16:19 [facility] [id number]) Posture Evaluation [facility] Postural Classification System Ricardo Postural Posterior/Anterior Classifications Vertical Compression 4 Test Elbow Flexion Test 3 Lumbar Protective 2 Mechanism Left AP Lumbar Protective 2 Mechanism Right AP Lumbar Protective 3 Mechanism Left PA Lumbar Protective 2 Mechanism Right PA PT-OP-K Range of Motion Start: 08/01/24 18:55 Freq: Status: Active Protocol: Document 11/13/24 13:51 [facility] (Rec: 11/13/24 16:19 [facility] [id number]) Cervical Spine Range of Motion Cervical Spine Active Degrees Testing Position Sitting Flexion 67 Extension 50 Rotation Left 52 Rotation Right 56 Lateral Flexion Left 27 Lateral Flexion 26 Right Comments 70 deg L; 80 deg R PT-OP-L Special Tests Start: 08/01/24 18:55 Freq: Status: Active Protocol: Document 08/05/24 11:32 [facility] (Rec: 08/05/24 12:33 [facility] [id number]) Special Tests Cervical Spine Special Tests spurling Test Results neg Tectoral membrane Test Results neg Transverse Ligament Test Results neg Alar Ligament Test Results neg Traction Test Results neg traction and compression cervical and thoracic PT-OP-Q Treatments Start: 08/01/24 18:55 Freq: Status: Active Protocol: Document 11/13/24 13:51 [facility] (Rec: 11/13/24 16:19 [facility] [id number]) Therapeutic Exercises Sitting Exercises ROM Sitting Exercise cervical AROM and thoracic ROM Name Side bilateral stretch Sitting Exercise UT, scalenes Name Side bilateral Standing Exercises wall posture Standing Exercise wall roll up w/BUE ext Name Side bilateral Manual Therapy Treatment Consent Patient gave verbal Yes consent for manual treatment Soft Tissue Mobilization cervical Body Location R>L UT scalenes CS paraspinals Mobilization Type Cross-Friction,Rolling,Sustained Pressure Intensity/Depth Moderate Body Position Sitting Joint Mobilizations thoracic Comments PA T1-3 Self-Care/Home Management Treatment Education Other Education 15 min: edu to pt re: cont HEP for improving more ROM; edu on importance of posture and how fwd head posture will limit rotational capacity based on anatomy of facets; discussed how ant trunk fascial tightness can limit his thoracic mobility also PT-OP-T Assessment and Plan Start: 08/01/24 18:55 Freq: Status: Active Protocol: Document 11/13/24 13:51 [facility] (Rec: 11/13/24 16:19 [facility] [id number]) Physical Therapy Assessment Goals postural strength Short Term Goal (STG Pt will improve VCT to at least 3/5 to show improved ) alignment 09/11-improving 10/14-2/5 improved STG Duration acheived 11/13 [facility] Goal (LTG) Pt will score at least 3/5 on LPM in all planes and EFT to show improved stability. 09/11-improving 10/14-improving LTG Duration mostly achieved 11/13 ROM Short Term Goal (STG Pt will be able to do cervical ext to at least 50 deg w ) /o inc pain 09/11-no pain and improved to 45 10/14-47 no pain STG Duration achieved 11/13 Lockstitch Topstitcher Goal (LTG) Pt will have improved thoracic rotation to at least 70 deg B 09/11-dec today 10/14-improved and inc further after manual LTG Duration achieved 11/13 activity Short Term Goal (STG Pt will be able to prop self in bed for comfort and be ) educated on use of pillows and towels for propping 09/11-pt working on propping in bed STG Duration achieved 10/14 [facility] Goal (LTG) Pt will be able to sleep through the night and cook w/o inc pain in neck or back 09/11-wakes up every 90 min but not d/t pain; tired back at the kitchen counter 10/04-wakes up in the night but most of the time not d/t pain-occ gets pain but not the sharp one. 11/13-sleeping through night, at counter, can get pain in back and neck or tired feeling but can use ice to help LTG Duration mostly achieved Assessment Summary Assessment Pt has met most goals or is close to meeting all goals and feels good about indep w/HEP at this time. DC to HEP. Physical Therapy Plan Discharge Physical Therapy Discharge Reasons Goals Met
== END 2024-11-14 08:57 | disposition home or self-care (01) ==
LOC: PHYS 13:45
PROVIDERS: Family Provider Family Medicine; PCP Family Medicine; Referring Provider Family Medicine; Visit Provider Family Medicine
DX: M62.830 Muscle spasm of back (principal); M62.838 Other muscle spasm; Z98.890 Other specified postprocedural states; Z87.19 Personal history of other diseases of the digestive system
CPT/HCPCS: 97110; 97140; 97162; 97530; 97535

== ENCOUNTER 2024-11-23 15:30 | Emergency (ER) | payer OTHER, SELFPAY ==
[2024-07-11 16:24] VITALS: BMI 21.6
[2024-11-23 15:36] VITALS: BP 122/80; PULSE 78; RESP 20; TEMP 36.4; O2SAT 97; BMI 21.2
--- NOTE | 2024-11-23 15:41 | DI.RAD.S_ITS ---
PROCEDURE: XR SHOULDER LT MIN 2V INDICATIONS: glf TECHNIQUE: 3 views of the shoulder were acquired. COMPARISON: None. FINDINGS: Bones: No fractures or dislocations. No suspicious bony lesions. Visualized ribs appear intact. Soft tissues: No suspicious soft tissue calcifications. IMPRESSION: No acute bony abnormality. Dictated by: Liam Puri M.D. on 11/23/2024 at 15:14 Approved by: Liam Puri M.D. on 11/23/2024 at 15:15
--- NOTE | 2024-11-23 16:06 | ED_ITS ---
HPI - Extremity Injury (Upper) <Sarah Oreilly PA-C - Last Filed: 11/23/24 17:57> General Chief Complaint: Extremity Injury, Upper Stated Complaint: Fell off a ladder/possible broken shoulder Time Seen by Provider: 11/23/24 15:41 Mode of arrival: Ambulatory History of Present Illness HPI narrative: Mr. Zhu is a pleasant 79-year-old male with a past medical history of hypertension who presents to the emergency department for left shoulder pain after a fall that occurred prior to arrival. Patient was standing on a ladder about 2 ft off the ground when the ladder fell to the right and he fell to the left. Fell on the ground striking his left shoulder directly on the concrete. He also scratched the dorsal aspect of his right hand and the left side of his forehead during the fall. Patient denies having any headache, loss of consciousness, visual disturbance, neck pain or nausea or vomiting after the fall. His pain is localized to the left collarbone and the left posterior shoulder and he feels most comfortable standing and holding the left elbow and flexion. States that his Tdap has been up-to-date within the last 5 years. He does not take any blood thinners. He denies any other injuries besides his left shoulder. Denies pain of the neck, back, chest, abdomen, lower extremities, right arm. Related Data Home Medications ?Medication ?Instructions ?Recorded ?Confirmed calcipotriene 0.005 % topical cream 1 applic topical D AILY 02/22/22 10/16/24 Previous Rx's ?Medication ?Instructions ?Recorded docusate sodium 100 mg capsule 100 mg PO BID #30 caps 03/06/24 (Colace) alendronate 70 mg tablet 70 mg PO QWEEK #12 tabs 03/18 10/08 alfuzosin 10 mg tablet,extended 10 mg PO DAILY #90 tab s 04/11/24 release 24 hr citalopram 20 mg tablet 20 mg PO DAILY #90 tabs 03/18 10/08 losartan 50 mg tablet 50 mg PO DAILY #90 tabs 03/18 10/08 rizatriptan 10 mg disintegrating 10 mg PO Q2H PRN migr sophie headache 04/11/24 tablet #30 tabs mirabegron 50 mg tablet,extended 50 mg PO DAILY #90 ta bs 05/17/24 release 24 hr (Myrbetriq) methocarbamol 750 mg tablet 750 mg PO BID PRN muscle s pasm 08/05/24 #180 tabs oxycodone 5 mg tablet 5 mg PO Q8H PRN pain #30 tab s 08/14/24 sildenafil 100 mg tablet (Viagra) 50 - 100 mg (0.5 - 1 x 100 mg) PO 10/30/24 DAILY PRN sexual activity #30 tabs hydrocodone 5 mg-acetaminophen 325 1 tab PO Q4-6H PRN pain #12 tabs 11/23/24 mg tablet Allergies Allergy/AdvReac Type Severity Reaction Status Date / Time No Known Drug Allergies Allergy Verified 11/23/24 15:36 Review of Systems <Sarah Oreilly PA-C - Last Filed: 11/23/24 17:57> Review of Systems ROS Unobtainable: All systems reviewed & are unremarkable except as noted in HPI and below Patient History <Sarah Oreilly PA-C - Last Filed: 11/23/24 17:57> Medical History Testicular infarct, left History of urinary retention Hx of skin malignancy History of prostatitis Urinary retention Infarction of testicle Encounter for subsequent annual wellness visit in Medicare patient Muscle spasm of back BPH w urinary obs/LUTS Melanoma Elevated PSA Osteoporosis Migraine headache GERD (gastroesophageal reflux disease) Anxiety Hypertension Surgical History History of vasectomy History of prostate biopsy History of circumcision History of hernia repair Family History Mother Cancer Hyperlipidemia Hypertension Migraines Father Cancer Social History marital status: number of children: 2 household members: spouse lives independently: Yes occupational status: previously employed Smoking Status: Never smoker alcohol intake: former substance use type: does not use caffeine: Yes Type(s) of exercise: decline to answer Smoking Status: Never smoker alcohol intake frequency: 0-2 drinks per day Exam <Sarah Oreilly PA-C - Last Filed: 11/23/24 17:57> Narrative Exam Narrative: GENERAL: 79 year old patient appears stated age. Well-developed patient, in no acute distress. HEAD: Normocephalic. 2cm linear laceration just superior and medial to L eyebrow. EYES: PERRL. Extraocular motions intact. No scleral icterus. No injection or drainage. ENT: Clear ear canals, pearly espinal TMs no hemotympanum bilaterally. Nose without bleeding, purulent drainage. Throat without erythema, tonsillar hypertrophy or exudate. Airway patent. NECK: Trachea midline. Cervical ROM intact. CARDIOVASCULAR: Regular rate and rhythm. RESPIRATORY: ?Nonlabored respirations. ?Speaking in clear, full sentences. ?Clear to auscultation. Breath sounds equal bilaterally. No wheezes, rales, or rhonchi. ? GASTROINTESTINAL: Abdomen soft, non-tender, nondistended. EXTREMITIES: Tenderness to palpation of lateral left clavicle superior scapula. No focal humerus tenderness. Patient has significant pain with range of motion of the left shoulder and is holding the arm abducted and flexed at the elbow. No tenderness to palpation of the left elbow, left forearm, left wrist. No tenderness to palpation of the right upper extremity or bilateral lower extremities. Strong radial pulses bilaterally. BACK: No midline spinal tenderness. NEURO: AOx3. ?Clear speech. ?Moves all 4 extremities appropriately with the exception of left shoulder. Sensation intact to light touch in the distribution of the median, ulnar, radial nerves bilaterally. Patient is walking around the room with steady gait. SKIN: Superficial skin tears on the dorsal right hand, abrasions on the left superior scapula, and small laceration on the face described above. Remainder of skin is warm and dry. Initial Vital Signs Initial Vital Signs: Vital Signs Temperature 97.6 F 11/23/24 15:36 Pulse Rate 78 11/23/24 15:36 Respiratory Rate 20 11/23/24 15:36 Blood Pressure 122/80 11/23/24 15:36 Pulse Oximetry 97 11/23/24 15:36 Oxygen Delivery Method Room Air 11/23/24 15:36 <Nataliya Enriquez MD - Last Filed: 11/24/24 07:40> Initial Vital Signs Initial Vital Signs: Vital Signs Temperature 97.6 F 11/23/24 15:36 Pulse Rate 78 11/23/24 15:36 Respiratory Rate 20 11/23/24 15:36 Blood Pressure 122/80 11/23/24 15:36 Pulse Oximetry 97 11/23/24 15:36 Oxygen Delivery Method Room Air 11/23/24 15:36 Procedures <Sarah Oreilly PA-C - Last Filed: 11/23/24 17:57> Laceration Repair Laceration 1: Site: face Side (If applicable): left Size (cm): 2 Description: linear Depth: simple, single layer Local Anesthetic: other anesthetic (None - patient preference) Pre-repair: wound explored, irrigated extensively and deep structures intact Skin layer closed with: steri-strips Course <Sarah Oreilly PA-C - Last Filed: 11/23/24 17:57> Orders Ordered: Discontinued Medications Hydrocodone Bitart/Acetaminophen (Hydrocodone/Acet 5/325 Tablet) 1 tab PO NOW ONE Stop: 11/23/24 16:24 Last Admin: 11/23/24 16:32 Dose: 1 tab Documented By: LD Bacitracin (Bacitracin Oint 0.9 Gm Pckt) 3 applic TOP NOW ONE Stop: 11/23/24 16:24 Last Admin: 11/23/24 16:32 Dose: 3 applic Documented By: LD Vital Signs Vital signs: Vital Signs - 8 hr 11/23/24 15:36 Temperature 97.6 F Pulse Rate 78 Respiratory Rate 20 Blood Pressure 122/80 Pulse Oximetry 97 Oxygen Delivery Method Room Air <Nataliya Enriquez MD - Last Filed: 11/24/24 07:40> Orders Ordered: Discontinued Medications Hydrocodone Bitart/Acetaminophen (Hydrocodone/Acet 5/325 Tablet) 1 tab PO NOW ONE Stop: 11/23/24 16:24 Last Admin: 11/23/24 16:32 Dose: 1 tab Documented By: LD Bacitracin (Bacitracin Oint 0.9 Gm Pckt) 3 applic TOP NOW ONE Stop: 11/23/24 16:24 Last Admin: 11/23/24 16:32 Dose: 3 applic Documented By: LD Vital Signs Vital signs: Vital Signs - 8 hr 11/23/24 15:36 Temperature 97.6 F Pulse Rate 78 Respiratory Rate 20 Blood Pressure 122/80 Pulse Oximetry 97 Oxygen Delivery Method Room Air MDM - Extremity Injury (Upper) <Sarah Oreilly PA-C - Last Filed: 11/23/24 17:57> Medical Records Attestation: I reviewed the patient's medical records. Imaging Data Left Shoulder CT: Radiologist's Impression: PROCEDURE: CT UE LT WO CON INDICATIONS: fall on L shoulder; superior scapula clavicle pain TECHNIQUE: Noncontrast 0.75 mm thick sections acquired from the acromioclavicular joint to the inferior scapula, with coronal and sagittal reformatting. COMPARISON: [facility], CR, XR SHOULDER LT 2+ VIEWS, 11/23/2024, 15:49. FINDINGS: Image quality: Excellent. Bones: No acute fracture osseous malalignment. Mild glenohumera and l acromioclavicular osteoarthritic changes. Soft tissues: Normal appearance of the visualized soft tissues in lung. IMPRESSION: No fracture. No osseous malalignment. Dictated by: Liam Puri M.D. on 11/23/2024 at 16:31 Approved by: Liam Puri M.D. on 11/23/2024 at 16:34 MDM Narrative Medical decision making narrative: 79-year-old male with a past medical history of hypertension who presents to the emergency department for left shoulder pain after a fall that occurred prior to arrival. Differential diagnosis includes but isn't limited to left clavicular fracture, shoulder fracture, scapular fracture, dislocation, rotator cuff tear, sprain, strain, skin tear, laceration, closed head injury, concussion, etc. On exam the patient is in no acute distress, nontoxic-appearing, all vital signs within normal limits. He is unable to move left shoulder secondary to pain. He is tenderness to palpation of the clavicle and the scapula, no focal humeral tenderness. No tenderness to palpation of the remainder of the extremities. Upper extremities are neurovascularly intact. He is superficial skin abrasion on the left scapula, right hand and laceration of the face. Patient denies any significant head trauma, denies headache, LOC, C-spine pain, denies need for head CT. Left shoulder x-ray obtained in triage is negative however given patient's significant tenderness and inability to move we will obtain CT shoulder. We will treat pain with Wilder. We will repair of facial laceration and cleansed and covered remainder of rooms. States his Tdap is up-to-date within 5 years. Patient's pain and range of motion improved with ED treatment. Left shoulder CT reveals no fracture, no osseous malalignment. I recommended patient to use sling for comfort, Tylenol for pain, ice and a short course of hydrocodone- acetaminophen severe breakthrough pain, and advised to follow up with primary care doctor or [facility] for further management. We also discussed proper wound care for abrasions/skin tears in addition to facial laceration which was repaired using Dermabond and Steri-Strips. Patient his verbalized understanding of all information and are agreeable with the plan. He is ambulatory and stable for discharge home. Discharge Plan Departure Patient Disposition: Home Clinical Impression: Skin tear, Abrasion Contusion of left shoulder Qualifiers: Encounter type: initial encounter Qualified Code(s): S40.012A - Contusion of left shoulder, initial encounter Sprain of left shoulder Qualifiers: Encounter type: initial encounter Shoulder sprain type: unspecified sprain Q ualified Code(s): S43.402A - Unspecified sprain of left shoulder joint, initial encounter Facial laceration Qualifiers: Encounter type: initial encounter Qualified Code(s): S01.81XA - Laceration without foreign body of other part of head, initial encounter Instructions: DI for Shoulder Sprain Activity Restrictions/Additional Instructions: Dear Mr. Zhu, Thank you for coming to the emergency department. Today you were evaluated for left shoulder injury after a fall directly onto the shoulder. Your CT scan did not reveal any broken bones. However it is possible that you damaged some of the soft tissues of the shoulder such as the rotator cuff muscle group. I would like you to use the sling for comfort. Please use the prescribed medication as needed for severe breakthrough pain. I would follow up with your primary care doctor or [facility] for further management. Today you had a laceration to your face, and we have repaired it using skin tape and skin glue. These will come off on their own in about 1 week. Please avoid scrubbing this area and do not apply ointment as it will break down the adhesive. Please keep the dressing(s) on your wound clean, dry, and intact for the next 24 hours. After this time, you may remove the dressing and gently clean the wound with soap and water, then pat dry. Keep the wound clean and covered. Avoid soaking the wound in any water such as a bath, pool, or the ocean. If you develop any signs of wound infection such as increased redness, pus drainage, streaking redness, or fevers, please return to the ER immediately for evaluation. You have been prescribed a short course of narcotic medications. These are potentially dangerous and addictive medications that should be used carefully. While on these medications you cannot drive or operate heavy machinery. Additionally, you cannot sign legal documents or perform any duties such as this. 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 Please understand that we cannot provide further refills of narcotics or controlled substances through the ED and your pain management will need to be through your Primary Care Provider Please follow up with your primary care doctor within the next 2-3 days for ER follow-up. (If you do not have a PCP you can call [phone]. ?to schedule an appointment with an [facility] Primary Care Provider) IF YOU DEVELOP ANY NEW OR WORSENING SYMPTOMS, RETURN TO THE ER! Please read the attached instructions, they highlight more specific treatments and interventions for you at home. Thank you for letting me participate in your care, Sarah Oreilly PA-C Prescriptions: New hydrocodone-acetaminophen 5-325 mg tablet 1 tab PO Q4-6H PRN (Reason: pain) Qty: 12 0RF No Action methocarbamol 750 mg tablet 750 mg PO BID PRN (Reason: muscle spasm) Qty: 180 3RF sildenafil [Viagra] 100 mg tablet 50 - 100 mg PO DAILY PRN (Reason: sexual activity) Qty: 30 11RF Rx Instructions: take 30 minutes to 4 hours before activity calcipotriene 0.005 % cream 1 applic topical DAILY Rx Instructions: rub in gently and completely alendronate 70 mg tablet 70 mg PO QWEEK Qty: 12 3RF alfuzosin 10 mg tablet extended release 24 hr 10 mg PO DAILY Qty: 90 3RF Rx Instructions: administer after the same meal each day citalopram 20 mg tablet 20 mg PO DAILY Qty: 90 3RF losartan 50 mg tablet 50 mg PO DAILY Qty: 90 3RF rizatriptan 10 mg tablet,disintegrating 10 mg PO Q2H MDD 20mg PRN (Reason: migraine headache) Qty: 30 11RF oxycodone 5 mg tablet 5 mg PO Q8H PRN (Reason: pain) Qty: 30 0RF docusate sodium [Colace] 100 mg capsule 100 mg PO BID Qty: 30 0RF mirabegron [Myrbetriq] 50 mg tablet extended release 24 hr 50 mg PO DAILY Qty: 90 3RF Referrals: Richi Fuentes DO [Primary Care Provider, Family Practice] Sina Mcdonald MD [Physician, Orthopedic Surgery] Referral Note: L shoulder Stand Alone Forms: Patient Portal/API ED Sign-out <Nataliya Enriquez MD - Last Filed: 11/24/24 07:40> Cosign ED Attending Cosignature Attestation: I was immediately available in the department for consultation throughout this patient's visit. Nataliya Enriquez MD
--- NOTE | 2024-11-23 16:26 | DI.CT.S_ITS ---
PROCEDURE: CT UE LT WO CON INDICATIONS: fall on L shoulder; superior scapula clavicle pain TECHNIQUE: Noncontrast 0.75 mm thick sections acquired from the acromioclavicular joint to the inferior scapula, with coronal and sagittal reformatting. COMPARISON: [facility], CR, XR SHOULDER LT 2+ VIEWS, 11/23/2024, 15:49. FINDINGS: Image quality: Excellent. Bones: No acute fracture osseous malalignment. Mild glenohumera and l acromioclavicular osteoarthritic changes. Soft tissues: Normal appearance of the visualized soft tissues in lung. IMPRESSION: No fracture. No osseous malalignment. Dictated by: Liam Puri M.D. on 11/23/2024 at 16:31 Approved by: Liam Puri M.D. on 11/23/2024 at 16:34
[2024-11-23] MEDS: HYDROCODONE/ACET 5/325 TABLET 1 TAB PO (16:32)
[2024-11-23] MEDS: BACITRACIN OINT 0.9 GM PCKT 3 APPLIC TOP (16:32)
[2024-11-23 18:01] VITALS: BP 129/76; PULSE 74; RESP 16; TEMP 36.6; O2SAT 98
== END 2024-11-23 18:01 | disposition home or self-care (01) ==
PROVIDERS: Emergency Provider Physician Assistant; Family Provider Family Medicine; PCP Family Medicine
DX: S43.402A Unspecified sprain of left shoulder joint, initial encounter (principal); S40.012A Contusion of left shoulder, initial encounter; S01.81XA Laceration without foreign body of other part of head, initial encounter; W11.XXXA Fall on and from ladder, initial encounter
CPT/HCPCS: 73030; 73200; 99283; 99284

== ENCOUNTER → 2025-01-29 13:33 | Outpatient (CLI) | payer OTHER, SELFPAY ==
[2024-07-11 16:24] VITALS: BMI 21.6
--- NOTE | 2025-01-29 13:35 | DI.RAD.S_ITS ---
PROCEDURE: XR FOOT LT MIN 3V INDICATIONS: Heel pain after fall TECHNIQUE: 3 views of the foot were acquired. COMPARISON: None. FINDINGS: Bones: Question possible plantar posterior nondisplaced calcaneal fracture versus overlying fat plane. Suspect fracture. No other fractures or dislocations. No suspicious bony lesions. Soft tissues: No tibiotalar joint effusion. Achilles tendon appears normal. IMPRESSION: Question possible plantar posterior calcaneal fracture. Comment: Consider CT for confirmation Dictated by: Jason Lambert M.D. on 01/29/2025 at 14:17 Approved by: Jason Lambert M.D. on 01/29/2025 at 14:18
== END ==
LOC: RAD 13:34
PROVIDERS: PCP Family Medicine; Referring Provider Family Medicine; Visit Provider Nurse Practitioner Family
DX: M79.672 Pain in left foot (principal)
CPT/HCPCS: 73630

== ENCOUNTER → 2025-04-14 13:35 | Outpatient (CLI) | payer OTHER, SELFPAY ==
[2024-07-11 16:24] VITALS: BMI 21.6
[2025-04-14 13:53] LABS: Hematocrit 38.7 % (41-53); Hemoglobin 13.1 g/dL (13.5-17.5); Mean Corpuscular HGB Conc 34.0 % (30-36); Mean Corpuscular Hemoglobin 31.5 PG (26-34); Mean Corpuscular Volume 92.6 fL (80-100); Platelet Count 197 X10^3/uL (150-400)
[2025-04-14 14:11] LABS: Alanine Aminotransferase 15 IU/L (<50); Albumin 4.5 g/dL (3.5-5.0); Albumin Globulin Ratio 1.7 (1.0-2.8); Alkaline Phosphatase 80 U/L (38-126); Blood Urea Nitrogen 15 mg/dL (9-20); Calcium 9.4 mg/dL (8.4-10.2); Carbon Dioxide 27 mmol/L (22-32); Chloride 104 mmol/L (98-107); Cholesterol 168 mg/dL (140-199); Estimated Glomerular Filt Rate > 60 mL/min (>60); Globulin 2.7 g/dL (1.7-4.1); Glucose 101 mg/dL (70-99); HDL Cholesterol 50 mg/dL (40-60); HEMOLYSIS < 15 (0-50); Potassium 4.3 mmol/L (3.4-5.1); Sodium 139 mmol/L (137-145); Total Protein 7.2 g/dL (6.3-8.2); Triglycerides 217 mg/dL (35-150)
[2025-04-14 15:01] LABS: Vitamin D 25 Hydroxy (D3) 65.0 ng/mL (30.0-100.0)
== END ==
PROVIDERS: PCP Family Medicine; Referring Provider Family Medicine; Visit Provider Family Medicine
DX: I10 Essential (primary) hypertension (principal); M81.8 Other osteoporosis without current pathological fracture; Z00.00 Encounter for general adult medical examination without abnormal findings; R97.20 Elevated prostate specific antigen [PSA]
CPT/HCPCS: 36415; 80053; 80061; 82306; 85027

== ENCOUNTER → 2025-04-16 11:54 | Outpatient (CLI) | payer OTHER, SELFPAY ==
[2024-07-11 16:24] VITALS: BMI 21.6
== END ==
PROVIDERS: PCP Family Medicine; Referring Provider Family Medicine; Visit Provider Family Medicine
DX: Z12.11 Encounter for screening for malignant neoplasm of colon (principal)
CPT/HCPCS: 82274